=== PATIENT | male | born 1950 | race Caucasian/White ===

== ENCOUNTER → 2018-07-21 15:46 | Outpatient (CLI) | payer OTHER, MEDICARE, SELFPAY ==
[2018-07-21 17:41] LABS: Thyroid Stimulating Hormone 1.02 uIU/mL (0.47-4.68)
== END ==
PROVIDERS: Family Provider Family Medicine; PCP Family Medicine; Visit Provider Internal Medicine Cardiovascular Disease
DX: R53.83 Other fatigue (principal)
CPT/HCPCS: 36415; 84443

== ENCOUNTER 2018-09-03 12:10 | Emergency (ER) | payer OTHER, SELFPAY ==
[2018-09-03 12:16] VITALS: BP 129/75; PULSE 85; RESP 14; TEMP 36.8; O2SAT 95; BMI 30.4
--- NOTE | 2018-09-03 12:25 | DI.US.S_ITS ---
PROCEDURE: US PERIPH VENOUS LOW EXTREM LT INDICATIONS: LLE pain, atraumatic, May go to US from ED waiting TECHNIQUE: Real-time imaging, as well as color and pulse Doppler interrogation, were performed of the lower extremity deep veins from the inguinal ligament to the popliteal fossa. COMPARISON: None. FINDINGS: The deep veins are normally compressible, and free of intraluminal thrombus. Color and pulse Doppler demonstrate normal phasic intraluminal flow. There is normal augmentation response to distal compression maneuver. IMPRESSION: No visualized deep venous thrombosis. Her Dictated by: Marie Victor M.D. on 09/03/2018 at 13:39 Approved by: Marie Victor M.D. on 09/03/2018 at 13:44
--- NOTE | 2018-09-03 12:37 | ED.EXTPRO ---
HPI - Extremity Problem <GEORGIANA Marshall - Last Filed: 09/03/18 22:14> General Chief complaint: Extremity Problem,Nontraumatic Stated complaint: LEFT LEG PAIN Time Seen by Provider: 09/03/18 13:50 Source: patient Mode of arrival: ambulatory Limitations: no limitations History of Present Illness HPI Narrative: 67-year-old male with history of hypertension and coronary artery disease that is a nonsmoker here for complaint of pain into his left calf area over the past week. He denies any trauma to the area. He reports increased pain with motion which was worse this morning. He states that his pain has resolved somewhat prior to exam. He denies any shortness of breath or chest pain. No swelling or redness. He denies any other concerns or complaints at this timeframe. MD Complaint: extremity pain Related Data Home Medications Medication Instructions Recorded Confirmed aspirin 325 mg tablet 325 mg PO DAILY 07/28/18 07/28/18 atorvastatin 40 mg tablet 40 mg PO DAILY 07/28/18 07/28/18 metoprolol succinate ER 50 mg 50 mg PO each 07/28/18 07/28/18 capsule sprinkle, ext. release 24 hr Previous Rx's Medication Instructions Recorded sumatriptan succinate [Imitrex] 50 mg PO SEE INSTRUCTIONS #9 tab 11/23/17 lisinopril 20 mg tablet 20 mg PO DAILY 30 Days #30 tab 07/28/18 zolpidem 10 mg tablet 10 mg PO HS PRN #30 tab 07/29/18 Allergies Allergy/AdvReac Type Severity Reaction Status Date / Time No Known Drug Allergies Allergy Verified 09/03/18 12:18 Review of Systems <GEORGIANA Marshall - Last Filed: 09/03/18 22:14> Constitutional Denies chills, Denies fever(s), Denies lethargy and Denies weakness Eyes Denies change in vision, Denies eye discharge, Denies irritation and Denies loss of vision ENT Ears, Nose, Mouth, and Throat: Denies change in voice, Denies neck pain and Denies sore throat Cardiovascular Denies chest pain, Denies irregular heart rhythm, Denies lightheadedness, Denies palpitations, Denies dyspnea, Denies dyspnea on exertion and Denies orthopnea Respiratory Denies cough, Denies dyspnea, Denies dyspnea on exertion and Denies wheezing Gastrointestinal Gastrointestinal: Denies abdominal pain, Denies change in bowel habits, Denies diarrhea, Denies nausea and Denies vomiting Genitourinary Denies hematuria, Denies flank pain, Denies urinary incontinence and Denies urinary urgency Musculoskeletal Denies neck pain Comments: Left calf pain Integumentary/Breasts Denies pruritus, Denies erythema, Denies rash and Denies wounds Neurologic Denies confusion, Denies loss of vision and Denies weakness Psychiatric Denies anxiety, Denies confusion, Denies depression, Denies homicidal ideation and Denies suicidal ideation Endocrine Denies palpitations Hematologic/Lymphatic Denies easy bruising Allergic/Immunologic Denies wheezing Exam <GEORGIANA Marshall - Last Filed: 09/03/18 22:14> Initial Vital Signs Initial Vital Signs: Vital Signs Temperature 98.2 F 09/03/18 12:16 Pulse Rate 85 09/03/18 12:16 Respiratory Rate 14 09/03/18 12:16 Blood Pressure 129/75 09/03/18 12:16 Pulse Oximetry 95 09/03/18 12:16 Const General: cooperative and well developed Nutritional Appearance: well nourished Orientation: alert, awake, oriented x3 and not confused [facility] Mouth: oral mucosae normal and moist mucous membranes Eyes Conjunctivae: conjunctivae normal Sclera: sclerae normal Pupils: PERRL EOM: EOM intact bilaterally Resp Effort & Inspection: normal respiratory effort, able to speak in complete sentences, no respiratory distress and no use of accessory muscles Auscultation: clear to auscultation bilaterally, no rales, no rhonchi and no wheezes Cardio Rate: regular rate Rhythm: regular rhythm Heart Sounds: no click, no gallops, no murmurs and no rubs Pulses: normal peripheral pulses Skin General: no rashes or lesions noted, No jaundice and No petechiae Neuro General: alert, oriented x3, gait normal and no focal motor deficits Speech: speech normal Extrem Other: Left lower extremity with no swelling. No ecchymosis. No deformities. No erythema. Distal sensation is intact. Distal pulses are intact. Full range of motion. <Noah Early DO - Last Filed: 09/05/18 08:32> Initial Vital Signs Initial Vital Signs: Vital Signs Temperature 98.2 F 09/03/18 12:16 Pulse Rate 85 09/03/18 12:16 Respiratory Rate 14 11/10/18 12:16 Blood Pressure 129/75 09/03/18 12:16 Pulse Oximetry 95 09/03/18 12:16 Course <GEORGIANA Marshall - Last Filed: 09/03/18 22:14> Orders Ordered: ED Orders 09/03/18 12:25 US periph venous low extrem lt Stat Vital Signs - 8 hr 09/03/18 14:51 Pulse Rate 81 Respiratory Rate 18 Blood Pressure 124/83 Pulse Oximetry 95 <Noah Early DO - Last Filed: 09/05/18 08:32> Orders Ordered: ED Orders 09/03/18 12:25 US periph venous low extrem lt Stat Vital Signs - 8 hr 09/03/18 14:51 Pulse Rate 81 Respiratory Rate 18 Blood Pressure 124/83 Pulse Oximetry 95 MDM - Extremity (Nontraumatic) <GEORGIANA Marshall - Last Filed: 09/03/18 22:14> Imaging Data Venous US: Radiologist's impression: [place] [address] Ultrasound Report Signed Patient: Garrett Hassan WMR#: [id number] : 1950cct:[id number] Age/Sex: 67 / MDate of Service: 09/03/18 Loc: ED Accession Number: [id number] Procedure: US periph venous low extrem lt Ordering Provider: Noah Early D.O. PROCEDURE: US PERIPH VENOUS LOW EXTREM LT INDICATIONS: LLE pain, atraumatic, May go to US from ED waiting TECHNIQUE: Real-time imaging, as well as color and pulse Doppler interrogation, were performed of the lower extremity deep veins from the inguinal ligament to the popliteal fossa. COMPARISON: None. FINDINGS: The deep veins are normally compressible, and free of intraluminal thrombus. Color and pulse Doppler demonstrate normal phasic intraluminal flow. There is normal augmentation response to distal compression maneuver. IMPRESSION: No visualized deep venous thrombosis. Her Dictated by: Marie Victor M.D. on 09/03/2018 at 13:39 Approved by: Marie Victor M.D. on 09/03/2018 at 13:44 MDM Narrative Medical decision making narrative: Ultrasound left lower extremity was obtained was negative for any blood clot. Signs and symptoms presents as muscle strain. [id number] Tylenol or Motrin as needed for any discomfort. Rest area. Gentle range of motion and stretching. Follow up with primary care provider next week. For any worsening symptoms return to the emergency room. Discharge Plan Departure Patient Disposition: Home Clinical Impression: Left leg pain Discharge Date/Time: 09/03/18 14:51 Interventions: ED Discharge Assessment Last Done: 09/03/18 14:51 Instructions: DI for Leg Pain Activity Restrictions/Additional Instructions: Ultrasound left lower extremity was obtained was negative for any blood clot. Signs and symptoms presents as muscle strain. [id number]-whosaif Tylenol or Motrin as needed for any discomfort. Rest area. Gentle range of motion and stretching. Follow up with primary care provider next week. For any worsening symptoms return to the emergency room. Prescriptions: No Action metoprolol succinate 50 mg cap,sprinkle,ER 24hr dose pack 50 mg PO RF: 0 aspirin 325 mg tablet 325 mg PO DAILY RF: 0 atorvastatin 40 mg tablet 40 mg PO DAILY RF: 0 lisinopril 20 mg tablet 20 mg PO DAILY 30 Days Qty: 30 RF: 5 sumatriptan succinate [Imitrex] 50 MG tablet 50 mg PO SEE INSTRUCTIONS Qty: 9 RF: 3 zolpidem 10 mg tablet 10 mg PO HS PRN (Reason: insomnia) Qty: 30 RF: 5 Referrals: Enzo Lance MD [Primary Care Provider] - <Noah Early DO - Last Filed: 09/05/18 08:32> [facility] ED Attending Girma Attestation: I was immediately available in the department for consultation. Documentation has been reviewed. I agree with assessment and plan.
[2018-09-03 13:20] VITALS: PULSE 70
--- NOTE | 2018-09-03 13:52 | ED_ITS ---
HPI - Extremity Problem <GEORGIANA Marshall - Last Filed: 09/03/18 22:14> General Chief complaint: Extremity Problem,Nontraumatic Stated complaint: LEFT LEG PAIN Time Seen by Provider: 09/03/18 13:50 Source: patient Mode of arrival: ambulatory Limitations: no limitations History of Present Illness HPI Narrative: 67-year-old male with history of hypertension and coronary artery disease that is a nonsmoker here for complaint of pain into his left calf area over the past week. He denies any trauma to the area. He reports increased pain with motion which was worse this morning. He states that his pain has resolved somewhat prior to exam. He denies any shortness of breath or chest pain. No swelling or redness. He denies any other concerns or complaints at this timeframe. MD Complaint: extremity pain Related Data Home Medications Medication Instructions Recorded Confirmed aspirin 325 mg tablet 325 mg PO DAILY 07/28/18 07/28/18 atorvastatin 40 mg tablet 40 mg PO DAILY 07/28/18 07/28/18 metoprolol succinate ER 50 mg 50 mg PO each 07/28/18 07/28/18 capsule sprinkle, ext. release 24 hr Previous Rx's Medication Instructions Recorded sumatriptan succinate [Imitrex] 50 mg PO SEE INSTRUCTIONS #9 tab 11/23/17 lisinopril 20 mg tablet 20 mg PO DAILY 30 Days #30 tab 07/28/18 zolpidem 10 mg tablet 10 mg PO HS PRN #30 tab 07/29/18 Allergies Allergy/AdvReac Type Severity Reaction Status Date / Time No Known Drug Allergies Allergy Verified 09/03/18 12:18 Review of Systems <GEORGIANA Marshall - Last Filed: 09/03/18 22:14> Constitutional Denies chills, Denies fever(s), Denies lethargy and Denies weakness Eyes Denies change in vision, Denies eye discharge, Denies irritation and Denies loss of vision ENT Ears, Nose, Mouth, and Throat: Denies change in voice, Denies neck pain and Denies sore throat Cardiovascular Denies chest pain, Denies irregular heart rhythm, Denies lightheadedness, Denies palpitations, Denies dyspnea, Denies dyspnea on exertion and Denies orthopnea Respiratory Denies cough, Denies dyspnea, Denies dyspnea on exertion and Denies wheezing Gastrointestinal Gastrointestinal: Denies abdominal pain, Denies change in bowel habits, Denies diarrhea, Denies nausea and Denies vomiting Genitourinary Denies hematuria, Denies flank pain, Denies urinary incontinence and Denies urinary urgency Musculoskeletal Denies neck pain Comments: Left calf pain Integumentary/Breasts Denies pruritus, Denies erythema, Denies rash and Denies wounds Neurologic Denies confusion, Denies loss of vision and Denies weakness Psychiatric Denies anxiety, Denies confusion, Denies depression, Denies homicidal ideation and Denies suicidal ideation Endocrine Denies palpitations Hematologic/Lymphatic Denies easy bruising Allergic/Immunologic Denies wheezing Exam <GEORGIANA Marshall - Last Filed: 09/03/18 22:14> Initial Vital Signs Initial Vital Signs: Vital Signs Temperature 98.2 F 09/03/18 12:16 Pulse Rate 85 09/03/18 12:16 Respiratory Rate 14 09/03/18 12:16 Blood Pressure 129/75 09/03/18 12:16 Pulse Oximetry 95 09/03/18 12:16 Const General: cooperative and well developed Nutritional Appearance: well nourished Orientation: alert, awake, oriented x3 and not confused [facility] Mouth: oral mucosae normal and moist mucous membranes Eyes Conjunctivae: conjunctivae normal Sclera: sclerae normal Pupils: PERRL EOM: EOM intact bilaterally Resp Effort & Inspection: normal respiratory effort, able to speak in complete sentences, no respiratory distress and no use of accessory muscles Auscultation: clear to auscultation bilaterally, no rales, no rhonchi and no wheezes Cardio Rate: regular rate Rhythm: regular rhythm Heart Sounds: no click, no gallops, no murmurs and no rubs Pulses: normal peripheral pulses Skin General: no rashes or lesions noted, No jaundice and No petechiae Neuro General: alert, oriented x3, gait normal and no focal motor deficits Speech: speech normal Extrem Other: Left lower extremity with no swelling. No ecchymosis. No deformities. No erythema. Distal sensation is intact. Distal pulses are intact. Full range of motion. <Noah Early DO - Last Filed: 09/05/18 08:32> Initial Vital Signs Initial Vital Signs: Vital Signs Temperature 98.2 F 09/03/18 12:16 Pulse Rate 85 09/03/18 12:16 Respiratory Rate 14 11/10/18 12:16 Blood Pressure 129/75 09/03/18 12:16 Pulse Oximetry 95 09/03/18 12:16 Course <GEORGIANA Marshall - Last Filed: 09/03/18 22:14> Orders Ordered: ED Orders 09/03/18 12:25 US periph venous low extrem lt Stat Vital Signs - 8 hr 09/03/18 14:51 Pulse Rate 81 Respiratory Rate 18 Blood Pressure 124/83 Pulse Oximetry 95 <Noah Early DO - Last Filed: 09/05/18 08:32> Orders Ordered: ED Orders 09/03/18 12:25 US periph venous low extrem lt Stat Vital Signs - 8 hr 09/03/18 14:51 Pulse Rate 81 Respiratory Rate 18 Blood Pressure 124/83 Pulse Oximetry 95 MDM - Extremity (Nontraumatic) <GEORGIANA Marshall - Last Filed: 09/03/18 22:14> Imaging Data Venous US: Radiologist's impression: [place] [address] Ultrasound Report Signed Patient: Garrett Hassan WMR#: [id number] : 1950cct:[id number] Age/Sex: 67 / MDate of Service: 09/03/18 Loc: ED Accession Number: [id number] Procedure: US periph venous low extrem lt Ordering Provider: Noah Early D.O. PROCEDURE: US PERIPH VENOUS LOW EXTREM LT INDICATIONS: LLE pain, atraumatic, May go to US from ED waiting TECHNIQUE: Real-time imaging, as well as color and pulse Doppler interrogation, were performed of the lower extremity deep veins from the inguinal ligament to the popliteal fossa. COMPARISON: None. FINDINGS: The deep veins are normally compressible, and free of intraluminal thrombus. Color and pulse Doppler demonstrate normal phasic intraluminal flow. There is normal augmentation response to distal compression maneuver. IMPRESSION: No visualized deep venous thrombosis. Her Dictated by: Marie Victor M.D. on 09/03/2018 at 13:39 Approved by: Marie Victor M.D. on 09/03/2018 at 13:44 MDM Narrative Medical decision making narrative: Ultrasound left lower extremity was obtained was negative for any blood clot. Signs and symptoms presents as muscle strain. Dsae-[id number] Tylenol or Motrin as needed for any discomfort. Rest area. Gentle range of motion and stretching. Follow up with primary care provider next week. For any worsening symptoms return to the emergency room. Discharge Plan Departure Patient Disposition: Home Clinical Impression: Left leg pain Discharge Date/Time: 09/03/18 14:51 Interventions: ED Discharge Assessment Last Done: 09/03/18 14:51 Instructions: DI for Leg Pain Activity Restrictions/Additional Instructions: Ultrasound left lower extremity was obtained was negative for any blood clot. Signs and symptoms presents as muscle strain. Bfyd-iyy-vcozjjt Tylenol or Motrin as needed for any discomfort. Rest area. Gentle range of motion and stretching. Follow up with primary care provider next week. For any worsening symptoms return to the emergency room. Prescriptions: No Action metoprolol succinate 50 mg cap,sprinkle,ER 24hr dose pack 50 mg PO RF: 0 aspirin 325 mg tablet 325 mg PO DAILY RF: 0 atorvastatin 40 mg tablet 40 mg PO DAILY RF: 0 lisinopril 20 mg tablet 20 mg PO DAILY 30 Days Qty: 30 RF: 5 sumatriptan succinate [Imitrex] 50 MG tablet 50 mg PO SEE INSTRUCTIONS Qty: 9 RF: 3 zolpidem 10 mg tablet 10 mg PO HS PRN (Reason: insomnia) Qty: 30 RF: 5 Referrals: Enzo Lance MD [Primary Care Provider] - <Noah Early DO - Last Filed: 09/05/18 08:32> [facility] ED Attending Girma Attestation: I was immediately available in the department for consultation. Documentation has been reviewed. I agree with assessment and plan.
[2018-09-03 14:51] VITALS: BP 124/83; PULSE 81; RESP 18; O2SAT 95
== END 2018-09-03 14:51 | disposition home or self-care (01) ==
PROVIDERS: Emergency Provider Nurse Practitioner Family; Family Provider Family Medicine; PCP Student in an Organized Health Care Education/Training Program
DX: M79.605 Pain in left leg (principal)
CPT/HCPCS: 93971; 99282; 99284

== ENCOUNTER → 2019-03-14 16:15 | Outpatient (CLI) | payer OTHER, SELFPAY ==
[2019-03-14 16:40] LABS: Add Manual Diff / Slide Review NO; Basophils Absolute Auto 0 /uL (0-100); Basophils Percent Auto 0.8 % (0-2); Eosinophils Absolute Auto 300 /uL (0-450); Eosinophils Percent Auto 4.8 % (2-4); Hematocrit 45.7 % (41-53); Hemoglobin 15.4 g/dL (13.5-17.5); Lymphocytes Absolute Auto 1600 /uL (1100-4500); Lymphocytes Percent Auto 27.9 % (25-40); Mean Corpuscular HGB Conc 33.7 % (30-36); Mean Corpuscular Hemoglobin 29.8 PG (26-34); Mean Corpuscular Volume 88.5 fL (80-100); Monocytes Absolute Auto 400 /uL (0-900); Monocytes Percent Auto 7.2 % (3-14); Neutrophils Absolute Auto 3400 /uL (1500-7000); Neutrophils Percent Auto 59.3 % (50-75); Platelet Count 166 X10^3/uL (150-400); Red Blood Cell Count 5.17 X10^6/uL (4.5-5.9); Red Cell Distribution Width 14.4 % (11.6-14.8); White Blood Cell Count 5.7 X10^3/uL (4.5-11.0)
[2019-03-14 17:17] LABS: B Type Natriuretic Peptide < 100 (<100)
[2019-03-14 17:41] LABS: BUN Creatinine Ratio 16.3 (6-22); Blood Urea Nitrogen 13 mg/dL (9-20); Calcium 10.2 mg/dL (8.4-10.2); Carbon Dioxide 28 mmol/L (22-32); Chloride 103 mmol/L (98-107); Estimated Glomerular Filt Rate > 60.0 mL/min (>60); Glucose 85 mg/dL (80-110); HEMOLYSIS < 15 (0-50); Potassium 4.5 mmol/L (3.4-5.1); Sodium 140 mmol/L (137-145)
[2019-03-14 18:12] LABS: Thyroid Stimulating Hormone 0.96 uIU/mL (0.47-4.68)
== END ==
PROVIDERS: PCP Student in an Organized Health Care Education/Training Program; Visit Provider Internal Medicine Cardiovascular Disease
DX: I25.10 Atherosclerotic heart disease of native coronary artery without angina pectoris (principal); R53.83 Other fatigue; R06.09 Other forms of dyspnea
CPT/HCPCS: 36415; 80048; 83880; 84443; 85025

== ENCOUNTER → 2019-04-25 09:23 | Outpatient (CLI) | payer OTHER, MEDICARE, SELFPAY ==
[2019-04-25 10:14] LABS: Add Manual Diff / Slide Review NO; Basophils Absolute Auto 0 /uL (0-100); Basophils Percent Auto 0.6 % (0-2); Eosinophils Absolute Auto 300 /uL (0-450); Eosinophils Percent Auto 6.5 % (2-4); Hematocrit 44.6 % (41-53); Lymphocytes Absolute Auto 1400 /uL (1100-4500); Lymphocytes Percent Auto 28.2 % (25-40); Mean Corpuscular HGB Conc 33.6 % (30-36); Mean Corpuscular Hemoglobin 29.9 PG (26-34); Mean Corpuscular Volume 88.9 fL (80-100); Monocytes Absolute Auto 400 /uL (0-900); Monocytes Percent Auto 7.7 % (3-14); Neutrophils Absolute Auto 2800 /uL (1500-7000); Platelet Count 145 X10^3/uL (150-400); Red Blood Cell Count 5.02 X10^6/uL (4.5-5.9); Red Cell Distribution Width 13.9 % (11.6-14.8); White Blood Cell Count 4.9 X10^3/uL (4.5-11.0)
[2019-04-25 10:29] LABS: Blood Urea Nitrogen 14 mg/dL (9-20); Calcium 9.2 mg/dL (8.4-10.2); Carbon Dioxide 26 mmol/L (22-32); Chloride 107 mmol/L (98-107); Estimated Glomerular Filt Rate > 60.0 mL/min (>60); Glucose 105 mg/dL (80-110); HEMOLYSIS < 15 (0-50); Potassium 3.8 mmol/L (3.4-5.1); Sodium 143 mmol/L (137-145)
[2019-04-25 14:04] LABS: B Type Natriuretic Peptide < 100 (<100)
[2019-04-25 16:56] LABS: Prostate Specific Antigen Scrn 2.48 ng/mL (0.1-4.0)
== END ==
PROVIDERS: Family Provider Student in an Organized Health Care Education/Training Program; PCP Student in an Organized Health Care Education/Training Program; Visit Provider Internal Medicine Cardiovascular Disease
DX: I25.10 Atherosclerotic heart disease of native coronary artery without angina pectoris (principal); R06.09 Other forms of dyspnea; R53.83 Other fatigue; Z12.5 Encounter for screening for malignant neoplasm of prostate
CPT/HCPCS: 36415; 80048; 83880; 85025; G0103

== ENCOUNTER → 2019-05-11 09:44 | Outpatient (CLI) | payer OTHER, MEDICARE, SELFPAY ==
--- NOTE | 2019-05-11 09:47 | DI.US.S_ITS ---
PROCEDURE: US ABDOMEN LIMITED INDICATIONS: LEFT GROIN PAIN TECHNIQUE: Real-time focused scanning was performed of the inguinal region, with image documentation. COMPARISON: None. FINDINGS: No sonographic findings to suggest inguinal hernia or discrete mass lesion. No focal fluid collection IMPRESSION: Negative examination as above. No sonographic evidence of hernia Dictated by: Pedro Busch M.D. on 05/11/2019 at 16:53 Approved by: Pedro Busch M.D. on 05/11/2019 at 16:54
== END ==
PROVIDERS: Family Provider Student in an Organized Health Care Education/Training Program; PCP Student in an Organized Health Care Education/Training Program; Visit Provider Student in an Organized Health Care Education/Training Program
DX: R10.32 Left lower quadrant pain (principal)
CPT/HCPCS: 76705

== ENCOUNTER → 2019-07-21 10:51 | Outpatient (CLI) | payer OTHER, MEDICARE, SELFPAY ==
--- NOTE | 2019-07-21 11:42 | DI.CT.S_ITS ---
PROCEDURE: CT ABDOMEN PELVIS WO CON INDICATIONS: LLQ abdominal pain TECHNIQUE: After the administration of oral contrast, 5 mm thick sections acquired from the diaphragms to the symphysis. 5 mm coronal and sagittal reformats were performed. For radiation dose reduction, the following was used: automated exposure control, adjustment of mA and/or kV according to patient size. COMPARISON: None. FINDINGS: Image quality: Excellent. ABDOMEN: Lung bases: Lung bases are clear. Heart size is normal. Moderate amount atherosclerotic calcifications are seen. Solid organs: Liver is normal in size. Multiple well-circumscribed hypodense areas are seen scattered in liver parenchyma, measures up to 1.7 cm in size in superior left hepatic lobe and up to 1.5 cm in size in the inferior right hepatic lobe. These areas measures fluid density and likely represent hepatic cysts. Gallbladder contains multiple calcified stones. No gallbladder wall thickening or pericholecystic fluid.. Pancreas is normal in size. Spleen is normal in size. No adrenal nodules. Both kidneys are normal in size, without hydronephrosis or nephrolithiasis. Peritoneum and bowel: There is no bowel obstruction. No stomach or small bowel wall thickening. A segment of distal descending colon is seen within the left inguinal herniation sac with mild wall thickening and mesenteric fat stranding concerning for early incarceration. Sigmoid diverticulosis is seen, no CT evidence of acute diverticulitis. No free fluid or free air. Nodes and vessels: No retroperitoneal or mesenteric adenopathy by size criteria. Aorta and inferior vena cava are normal in size. Atherosclerotic calcifications 12 dominant one is seen. Miscellaneous: No ventral hernias. PELVIS: Genitourinary: There is mild diffuse bladder wall thickening. Enlarged prostate gland is seen with mass effect on floor of urinary bladder. Miscellaneous: No inguinal lymphadenopathy. Small to moderate-sized right inguinal hernia containing fat only. Moderate-sized left inguinal hernia containing thickened distal descending colon/proximal sigmoid colon loop. Bones: No suspicious bony lesions. No vertebral body compression fractures. IMPRESSION: 1. Moderate-sized left inguinal hernia containing a segment of distal descending colon/proximal sigmoid colon with wall thickening and mesenteric fat stranding concerning for early incarceration. No bowel obstruction. No free fluid or free air. 2. Small to moderate size right inguinal hernia containing fat only. 3. Numerous hypodensities scattered in liver parenchyma and may represent hepatic cysts. 4. No hydronephrosis. Enlarged prostate gland with mass effect on floor of urinary bladder. Mild diffuse bladder wall thickening. 5. Cholelithiasis, no CT evidence of acute cholecystitis. Dictated by: Samuel Bill M.D. on 07/21/2019 at 13:01 Approved by: Samuel Bill M.D. on 07/21/2019 at 13:07
== END ==
PROVIDERS: PCP Student in an Organized Health Care Education/Training Program; Visit Provider Student in an Organized Health Care Education/Training Program
DX: R10.32 Left lower quadrant pain (principal); K40.10 Bilateral inguinal hernia, with gangrene, not specified as recurrent; K80.20 Calculus of gallbladder without cholecystitis without obstruction; N40.0 Benign prostatic hyperplasia without lower urinary tract symptoms
CPT/HCPCS: 74176

== ENCOUNTER 2019-08-29 14:03 | Day surgery (SDC) | payer OTHER, SELFPAY ==
[2019-08-24 08:12] VITALS: BMI 27.9
[2019-08-29] VITALS (11 sets, daily range): BP systolic 112–156; BP diastolic 67–97; PULSE 60–69; RESP 11–19; TEMP 36.2–36.9; O2SAT 95–99; BMI 26.6
[2019-08-29] MEDS: LACTATED RINGERS 1,000 ML 100 ML IV (14:40)
--- NOTE | 2019-08-29 15:31 | PM.HP.1 ---
History of Present Illness History of Present Illness Date Patient Seen: 08/29/19 Time Patient Seen: 15:32 Chief complaint: [id number] LAP RU IHR W/MESH Narrative: This is a 68-year-old male with bilateral inguinal hernia symptomatic and reducible. He is here today for an elective laparoscopic repair. There been no interval changes in his health since the last H& P dated 07/27/2019. Patient History Medical History ADHD (attention deficit hyperactivity disorder) (Chronic) Basal cell carcinoma (Resolved) Chronic low back pain (Chronic) Cluster headaches (Chronic) Colon polyps (Resolved) Coronary artery disease (Chronic) Hyperlipidemia (Chronic) Hypertension (Chronic) Insomnia (Chronic) Myocardial infarction (Acute) Surgical History History of cardiac cath (Acute) History of vasectomy (1993) Hx of colonoscopy with polypectomy (Resolved 06/2014) Hx of coronary angioplasty (Resolved) Hx of heart artery stent (Resolved) Family & Social History Family History Father Diabetes mellitus Social History: household members family Tobacco & Substance use: Smoking Status Never smoker alcohol intake current alcohol intake frequency 0-2 drinks per day Substance Use Type does not use Meds Home Medications and Allergies Home Medications Medication Instructions Recorded Confirmed Type sumatriptan succinate [Imitrex] 50 mg PO SEE INSTRUCTIONS #9 tab 11/23/17 08/24/19 Rx nitroglycerin 0.4 mg sublingual 0.4 mg SL Q5-15M PRN 12/27/18 08/24/19 History tablet aspirin 81 mg tablet,delayed 81 mg PO DAILY 02/14/19 08/29/19 History release lisinopril 20 mg tablet 10 mg PO DAILY tab 02/14/19 08/29/19 History metoprolol succinate 50 mg capsule 25 mg PO BID each 02/14/19 08/29/19 History sprinkle, ext. release 24 hr atorvastatin 40 mg tablet 40 mg PO DAILY tab 03/23/19 08/29/19 History clopidogrel 75 mg tablet 75 mg PO DAILY 03/23/19 07/27/19 History zolpidem 10 mg tablet 10 mg PO HS PRN #30 tab 08/09/19 08/29/19 Rx Allergies Allergy/AdvReac Type Severity Reaction Status Date / Time No Known Drug Allergies Allergy Verified 08/29/19 14:26 Review of Systems Review of Systems ROS Unobtainable: All systems reviewed & are unremarkable except as noted in HPI and below Exam Vital Signs (past 8 hours): - 08/29/19 14:16 Temperature 98.4 F Pulse Rate 62 Respiratory Rate 16 Blood Pressure 133/81 Pulse Oximetry 96 Oxygen Delivery Method Room Air Narrative Exam Narrative: General-no acute distress, well nourished HEENT-moist mucous membranes, no scleral icterus Neck-supple, no lymphadenopathy Chest- non labored respirations, clear to auscultation bilaterally Cardiac-regular rate no peripheral edema Abdomen bilateral reducible inguinal hernia Extremities-warm, well perfused Neurological-alert and oriented, no focal deficits Assessment & Plan Assessment and plan (1) Inguinal hernia, bilateral: Current visit: No Status: Acute Assessment & Plan narrative: This is a 68-year-old male with bilateral inguinal hernia symptomatic reducible presents for elective laparoscopic repair. Please refer to the H& P dictated 07/27/2019 for further detail.
[2019-08-29] MEDS: CEFAZOLIN 2 GM/100 ML FROZ.PIGGY IV (16:01)
--- NOTE | 2019-08-29 16:34 | SUR.OPER ---
Supine on padded OR bed, head on pillow, arms padded and tucked at sides, legs uncrossed, safety belt at thigh, gel under heels
[2019-08-29] MEDS: BUPIVACAINE 0.25% (PF) VIAL 30 ML INJ (16:49)
[2019-08-29] MEDS: fentaNYL 100 MCG/2 ML INJ 50 MCG IV ×2 (17:39→17:45)
--- NOTE | 2019-08-29 17:39 | PM.OP.1 ---
Operative Date/Time/Diagnoses Date of procedure: 08/29/19 Time of procedure: 17:39 Pre-op diagnosis: bilateral inguinal hernia Post-op diagnosis: other (left inguinal hernia) Procedure & Clinicians Procedure: laparoscopic transabdominal preperitoneal repair of left inguinal hernia with mesh Same procedure as scheduled: Yes Indications: This is a 68-year-old male who presented with a symptomatic left inguinal hernia. He underwent a CT that demonstrated colon within a left inguinal defect. There was also suggestion of a right inguinal hernia as well although he was asymptomatic. Surgeon: Samy Corona Anesthesia Type: General Operative Notes Findings: Left direct and indirect inguinal hernia containing sigmoid colon. No significant right inguinal hernia was observed Estimated Blood Loss (mL): 20 Procedure in detail: The patient was brought to the operating room and placed supine on the table. Bilateral sequential compression devices were applied. General anesthesia was induced and they were intubated with an endotracheal tube. A crespo cath was placed in sterile fashion. They received 2 g ancef prior to skin incision. They were prepped and draped in sterile fashion. A time out was performed to ensure the correct patient, procedure and necessary equipment within the operating room. The skin was infiltrated with 0.25% bupivicaine. A 1 cm supra umbilical midline incision was made. The umbilical stalk was elevated the fascia sharply incised and the abdomen entered traumatically. A 10mm balloon port was placed and pneumoperitoneum was established at 15mm Hg. Insepction of the abdomen demonstrated no evidence of injury upon entry. Two 5 mm ports were then placed under direct visualization in the right and left lower quadrant lateral to the rectus muscle. A left direct and indirect hernia was observed. There was no major right inguinal hernia. The sigmoid colon was within the left direct defect. The colon was mobilized from its lateral attachments to the abdominal wall such that it could be carefully reduced from the direct defect. The left vas deferns the spermatic vessels were identified and protected. The peritoneum 4 cm superior to the deep inguinal ring between the medial umbilical ligament and the anterior superior iliac spine was incised. The peritoneal flap was retracted and the preperitoneal tissue was dissected off the flap beginning lateral to the inferior epigastric artery and towards the ASIS and to posterior limit of the psoas muscle to develop the lateral aspect of the pocket. Next the peritoneum medial to the inferior epigastric was mobilized towards the median umbilical ligament to develop the medial aspect of the pocket and the direct defect was reduced. The space of Retzius was fully dissected such that the Rajeev's ligmament and the pubic symphysis were visible. Next, the peritoneum was mobilized off the the spermatic vessels and vas deferns and fully exposed to the point where the vas deferens intersects with the medial umbilical ligament and the indirect hernia was reduced. A medium Bard 3D Max mesh was then placed into the abdomen and positioned such that the myopectineal orifice was completely covered with good overlap on all sides. The mesh was anchored to the pubic tubercle and to Rajeev?s ligament. The peritoneal flap was then repositioned back to its original position and tacks were used to anchor it in position such that no bowel could herniate into the preperitoneal space. The area was examined for hemostasis. The 5mm trocars were removed under direct visualization and pneumoperitoneum was deflated through the umbilical trocar, The fascia at the umbilicus was closed with 0-Vicryl in figure of 8 fashion, skin closed with 4-0 Monocyl followed by Dermabond. The sponge and instrument count at the end of the case was correct. Both testicles were entirely within the scrotum at the end of the case. The patient emerged from anesthsia was extubated and transferred to recovery in stable condition. Post-operative Condition: stable Disposition: same day surgery
== END 2019-08-29 19:05 | disposition home or self-care (01) ==
PROVIDERS: Family Provider Student in an Organized Health Care Education/Training Program; PCP Student in an Organized Health Care Education/Training Program; Visit Provider Surgery
PROC: 0YQ64ZZ Repair Left Inguinal Region, Percutaneous Endoscopic Approach (ICD-10-PCS; CPT 49650; principal; 2019-08-29 15:15)
DX: K40.30 Unilateral inguinal hernia, with obstruction, without gangrene, not specified as recurrent (principal); I10 Essential (primary) hypertension; I25.10 Atherosclerotic heart disease of native coronary artery without angina pectoris; E78.5 Hyperlipidemia, unspecified; I25.2 Old myocardial infarction
CPT/HCPCS: 49650; C1781; J0690; J1100; J1885; J2405; J2704; J3010

== ENCOUNTER 2019-09-19 12:39 | Observation (INO) | payer OTHER, MEDICARE, SELFPAY ==
--- NOTE | 2019-09-19 13:02 | ED.CHESTPAIN ---
HPI - Chest Pain General Chief Complaint: Chest Pain Stated Complaint: CHEST TIGHNESS Time Seen by Provider: 09/19/19 12:57 Source: patient Mode of arrival: Ambulatory Limitations: no limitations History of Present Illness HPI narrative: Patient is a 68-year-old with known coronary artery disease and 3 stents, placement of LAD stent on 03/13/2019 and stent placement to the ED EMS of mid LAD on 12/12/2018. He reports today that he generally feels weak and fatigued. He says that he had a cardiac arrest without any chest pain previously he says that he does have some chest tightness which does get worse with exertion. He overall feels extremely weak and fatigued ongoing for the last few days. He denies any fever or chills no productive cough. No radiation of pain. He had a treadmill stress test on 04/11/2019 which did not show any evidence of ischemia. Related Data Home Medications Medication Instructions Recorded Confirmed nitroglycerin 0.4 mg sublingual 0.4 mg SL Q5-15M PRN 12/27/18 09/19/19 tablet aspirin 81 mg tablet,delayed 81 mg PO DAILY 02/14/19 09/19/19 release atorvastatin 40 mg tablet 40 mg PO DAILY tab 03/23/19 09/19/19 clopidogrel 75 mg tablet 75 mg PO DAILY 03/23/19 09/19/19 lisinopril 10 mg PO DAILY 09/19/19 09/19/19 metoprolol succinate 25 mg PO BID 09/19/19 09/19/19 zolpidem 10 mg PO BEDTIME 09/19/19 09/19/19 Previous Rx's Medication Instructions Recorded sumatriptan succinate [Imitrex] 50 mg PO SEE INSTRUCTIONS #9 tab 11/23/17 acetaminophen [Tylenol] 650 mg PO QID PRN #60 cap 08/29/19 Allergies Allergy/AdvReac Type Severity Reaction Status Date / Time No Known Drug Allergies Allergy Verified 09/13/19 11:49 Review of Systems Review of Systems ROS Unobtainable: All systems reviewed & are unremarkable except as noted in HPI and below Constitutional Constitutional: Denies chills, Denies fever(s), Denies lethargy and Denies weakness Eyes Eyes: Denies change in vision, Denies eye discharge, Denies irritation and Denies loss of vision ENT Ears, Nose, Mouth, and Throat: Denies change in voice, Denies neck pain and Denies sore throat Cardiovascular Cardiovascular: Reports as per HPI Gastrointestinal Gastrointestinal: Denies abdominal pain, Denies change in bowel habits, Denies diarrhea, Denies nausea and Denies vomiting Genitourinary Genitourinary: Denies hematuria, Denies flank pain, Denies urinary incontinence and Denies urinary urgency Musculoskeletal Musculoskeletal: Denies neck pain Integumentary/Breasts Skin/Breast: Denies pruritus, Denies erythema, Denies rash and Denies wounds Neurologic Neurologic: Denies loss of vision and Denies weakness Patient History Medical History ADHD (attention deficit hyperactivity disorder) (Chronic) Basal cell carcinoma (Resolved) Chronic low back pain (Chronic) Cluster headaches (Chronic) Colon polyps (Resolved) Coronary artery disease (Chronic) Hyperlipidemia (Chronic) Hypertension (Chronic) Insomnia (Chronic) Myocardial infarction (Acute) Surgical History History of cardiac cath (Acute) History of vasectomy (1993) Hx of colonoscopy with polypectomy (Resolved 06/2014) Hx of coronary angioplasty (Resolved) Hx of heart artery stent (Resolved) Family History Father Diabetes mellitus Social History household members: family Smoking Status: Never smoker alcohol intake: current substance use type: does not use alcohol intake frequency: 0-2 drinks per day Substance Use Type: does not use Exam Initial Vital Signs Initial Vital Signs: Vital Signs Temperature 97.6 F 09/19/19 13:08 Pulse Rate 65 09/19/19 13:08 Respiratory Rate 9 L 09/19/19 13:08 Blood Pressure 112/72 09/19/19 13:08 Pulse Oximetry 98 09/19/19 13:08 GENERAL: Well-appearing, well-nourished and in no acute distress. HEENT: Head atraumatic,EOMI, pupils reactive, face symmetric, moist mucous membranes CARDIOVASCULAR: Regular rate and rhythm without murmurs, rubs or gallops. RESPIRATORY: Breath sounds equal bilaterally, no wheezes rales or rhonchi. ABDOMEN: Soft, nontender. Normoactive bowel sounds all 4 quadrants. No guarding or rebound. EXTREMITIES: Normal range of motion, no clubbing or edema. Neurovascularly intact NEUROLOGICAL: Alert and oriented x4.Normal gait and speech. Cranial nerves II through XII grossly intact. SKIN: Warm, dry, no laceration, no petechiae, no rashes or lesions. Course Orders Ordered: ED Orders 09/19/19 13:07 XR chest 1V Stat EKG-12 Lead Stat 09/19/19 13:10 B Type Natriuretic Peptide Stat Complete Blood Count AUTO DIFF Stat Comprehensive Metabolic Panel Stat Lipase Stat Partial Thromboplastin Time Stat Prothrombin Time INR Stat Troponin & CK Cardiac Panel Stat 09/19/19 13:42 EKG-12 Lead Stat 09/19/19 15:09 Troponin I Stat Sodium Chloride (Normal Saline 0.9%) 1,000 mls @ 150 mls/hr IV CONT KEYSHA Last Infusion: 09/19/19 17:30 Dose: 150 mls/hr Documented by: Admin: 09/19/19 14:07 Dose: 150 mls/hr Documented by: TAMI Consultations Consultation #1: Dr. Cerna, cardiology updated patient's symptoms test results including being off Plavix for recent surgery. Recommends repeat troponin if repeat troponin is negative he can stay here and have stress test if positive then needs transferring. Time: 14:01 Consultation #2: Dr. Chang, hospitalist updated patient's symptoms test results agrees with observation Time: 17:09 Vital Signs Vital signs: Vital Signs - 8 hr 09/19/19 13:08 Temperature 97.6 F Pulse Rate 65 Respiratory Rate 9 L Blood Pressure 112/72 Pulse Oximetry 98 MDM - Chest Pain Lab Data Attestation: I reviewed the patient's lab results. Result diagrams: 09/19/19 13:10 09/19/19 13:10 Labs: Lab Results 09/19/19 09/19/19 09/19/19 Range/Units 13:10 13:10 13:10 WBC 5.0 (4.5-11.0) X10^3/uL RBC 5.30 (4.5-5.9) X10^6/uL Hgb 16.1 (13.5-17.5) g/dL Hct 47.1 (41-53) % MCV 88.9 (80-100) fL MCH 30.4 (26-34) PG MCHC 34.1 (30-36) % RDW 13.4 (11.6-14.8) % Plt Count 177 (150-400) X10^3/uL Neut % (Auto) 71.1 (50-75) % Lymph % (Auto) 19.2 L (25-40) % [place] % (Auto) 6.3 (3-14) % Eos % (Auto) 2.7 (2-4) % Baso % (Auto) 0.7 (0-2) % Neut # (Auto) 3600 (4648-7172) /uL Lymph # (Auto) 1000 L (4873-8001) /uL [place] # (Auto) 300 (0-900) /uL Eos # (Auto) 100 (0-450) /uL Baso # (Auto) 0 (0-100) /uL PT 12.1 (10.1-12.7) SECONDS INR 1.1 (0.9-1.3) APTT 34 (26.4-36.2) SECONDS Sodium 140 (137-145) mmol/L Potassium 4.1 (3.4-5.1) mmol/L Chloride 105 (98-107) mmol/L Carbon Dioxide 27 (22-32) mmol/L BUN 16 (9-20) mg/dL Creatinine 0.80 (0.66-1.25) mg/dL Estimated GFR > 60.0 (>60) mL/min BUN/Creatinine Ratio 20.0 (6-22) Glucose 92 (80-110) mg/dL Calcium 9.5 (8.4-10.2) mg/dL Total Bilirubin 0.9 (0.2-1.3) mg/dL AST 38 (17-59) IU/L ALT 39 (<50) IU/L Alkaline Phosphatase 53 (38-126) U/L Total Creatine Kinase 63 (55-170) U/L CK-MB (CK-2) TNP CK-MB (CK-2) Rel Index TNP Troponin I < 0.012 (0.01-0.034) ng/mL B-Natriuretic Peptide < 100 (<100) Total Protein 7.5 (6.3-8.2) g/dL Albumin 4.4 (3.5-5.0) g/dL Globulin 3.1 (1.7-4.1) g/dL Albumin/Globulin Ratio 1.4 (1.0-2.8) Lipase 99 (23-300) U/L 09/19/19 Range/Units 15:09 WBC (4.5-11.0) X10^3/uL RBC (4.5-5.9) X10^6/uL Hgb (13.5-17.5) g/dL Hct (41-53) % MCV (80-100) fL MCH (26-34) PG MCHC (30-36) % RDW (11.6-14.8) % Plt Count (150-400) X10^3/uL Neut % (Auto) (50-75) % Lymph % (Auto) (25-40) % [place] % (Auto) (3-14) % Eos % (Auto) (2-4) % Baso % (Auto) (0-2) % Neut # (Auto) (6404-4996) /uL Lymph # (Auto) (9118-9294) /uL [place] # (Auto) (0-900) /uL Eos # (Auto) (0-450) /uL Baso # (Auto) (0-100) /uL PT (10.1-12.7) SECONDS INR (0.9-1.3) APTT (26.4-36.2) SECONDS Sodium (137-145) mmol/L Potassium (3.4-5.1) mmol/L Chloride (98-107) mmol/L Carbon Dioxide (22-32) mmol/L BUN (9-20) mg/dL Creatinine (0.66-1.25) mg/dL Estimated GFR (>60) mL/min BUN/Creatinine Ratio (6-22) Glucose (80-110) mg/dL Calcium (8.4-10.2) mg/dL Total Bilirubin (0.2-1.3) mg/dL AST (17-59) IU/L ALT (<50) IU/L Alkaline Phosphatase (38-126) U/L Total Creatine Kinase (55-170) U/L CK-MB (CK-2) CK-MB (CK-2) Rel Index Troponin I < 0.012 (0.01-0.034) ng/mL B-Natriuretic Peptide (<100) Total Protein (6.3-8.2) g/dL Albumin (3.5-5.0) g/dL Globulin (1.7-4.1) g/dL Albumin/Globulin Ratio (1.0-2.8) Lipase (23-300) U/L ECG Data Attestation: I personally reviewed and interpreted this ECG as follows: Prior ECG tracings: available for review Interpretation: Normal sinus rhythm rate 64 p.r. interval 164 QRS [address] elevations or depressions Q-wave noted in lead 3 actually looks improved from EKG in 2010 MDM Narrative Medical decision making narrative: Patient's chest pain has subsided since being in the ED. He is ambulatory to the restroom without any difficulty. He will be admitted for chest pain observation. Discharge Plan Departure Patient Disposition: Admitted as Observation Clinical Impression: Chest pain Qualifiers: Chest pain type: unspecified Qualified Code(s): R07.9 - Chest pain, unspecified Discharge Date/Time: 09/19/19 17:44 Admit Date/Time: 09/19/19 17:02 Admit Provider: Adalberto Chang
--- NOTE | 2019-09-19 13:07 | DI.RAD.S_ITS ---
PROCEDURE: XR CHEST 1V INDICATIONS: chest pain TECHNIQUE: One view of the chest was acquired. COMPARISON: [facility], CR, XR CHEST 1 VIEW, 12/12/2018, 18:17. FINDINGS: Surgical changes and devices: None. Lungs and pleura: Interstitial prominence within the perihilar regions is present. There is no focal consolidation, effusion, or definite pneumothorax. Mediastinum: Mediastinal contours appear normal. Heart size is normal. Bones and chest wall: No suspicious bony lesions. Overlying soft tissues appear unremarkable. IMPRESSION: Possible mild vascular congestion. No definite pneumonia. Dictated by: Hugo Rodriguez M.D. on 09/19/2019 at 12:47 Approved by: Hugo Rodriguez M.D. on 09/19/2019 at 12:47
[2019-09-19 13:08] VITALS: BP 112/72; PULSE 65; RESP 9; TEMP 36.4; O2SAT 98
[2019-09-19 13:23] LABS: Add Manual Diff / Slide Review NO; Basophils Absolute Auto 0 /uL (0-100); Basophils Percent Auto 0.7 % (0-2); Eosinophils Absolute Auto 100 /uL (0-450); Eosinophils Percent Auto 2.7 % (2-4); Hematocrit 47.1 % (41-53); Hemoglobin 16.1 g/dL (13.5-17.5); Lymphocytes Absolute Auto 1000 /uL (1100-4500); Lymphocytes Percent Auto 19.2 % (25-40); Mean Corpuscular HGB Conc 34.1 % (30-36); Mean Corpuscular Hemoglobin 30.4 PG (26-34); Mean Corpuscular Volume 88.9 fL (80-100); Monocytes Absolute Auto 300 /uL (0-900); Monocytes Percent Auto 6.3 % (3-14); Neutrophils Absolute Auto 3600 /uL (1500-7000); Neutrophils Percent Auto 71.1 % (50-75); Platelet Count 177 X10^3/uL (150-400); Red Cell Distribution Width 13.4 % (11.6-14.8)
--- NOTE | 2019-09-19 13:25 | PC.NURSE ---
Patient has been off plavix for one month secondary to hernia repair. Started back on plavix yesterday due to not feeling well.
[2019-09-19 13:28] LABS: INR 1.1 (0.9-1.3); Prothrombin Time 12.1 SECONDS (10.1-12.7)
[2019-09-19 13:30] LABS: PTT Partial Thromboplastin Tim 34 SECONDS (26.4-36.2)
[2019-09-19 13:36] LABS: Alanine Aminotransferase 39 IU/L (<50); Albumin 4.4 g/dL (3.5-5.0); Albumin Globulin Ratio 1.4 (1.0-2.8); Alkaline Phosphatase 53 U/L (38-126); Aspartate Aminotransferase 38 IU/L (17-59); Bilirubin Total 0.9 mg/dL (0.2-1.3); Blood Urea Nitrogen 16 mg/dL (9-20); Calcium 9.5 mg/dL (8.4-10.2); Carbon Dioxide 27 mmol/L (22-32); Chloride 105 mmol/L (98-107); Creatine Kinase 63 U/L (55-170); Estimated Glomerular Filt Rate > 60.0 mL/min (>60); Globulin 3.1 g/dL (1.7-4.1); Glucose 92 mg/dL (80-110); Lipase 99 U/L (23-300); Sodium 140 mmol/L (137-145); Total Protein 7.5 g/dL (6.3-8.2)
[2019-09-19 13:40] LABS: HEMOLYSIS 54 (0-50); Potassium 4.1 mmol/L (3.4-5.1)
[2019-09-19 13:48] LABS: Troponin I < 0.012 ng/mL (0.01-0.034)
[2019-09-19 14:02] LABS: B Type Natriuretic Peptide < 100 (<100)
[2019-09-19] MEDS: SODIUM CHLORIDE 0.9% 1,000 ML 150 ML IV (14:07)
[2019-09-19 15:46] LABS: Troponin I < 0.012 ng/mL (0.01-0.034)
--- NOTE | 2019-09-19 17:22 | PM.HP.1 ---
History of Present Illness History of Present Illness Date Patient Seen: 09/19/19 Time Patient Seen: 17:22 Chief complaint: CHEST TIGHNESS Narrative: Mr. Vergara is a 68-year-old male with past medical history hypertension, hyperlipidemia, and CAD (s/p stenting in 2016, and again in 11/2018) presented with left-sided chest pressure starting this morning. Patient states his chest pressure/tightness was mild in that it was not as severe as his prior heart attack but was a very similar feeling. There was no radiation into his arm and he denied any diaphoresis or arm tingling. He states he felt uneasy while the symptoms were occurring, but no overt nausea or emesis. The symptoms lasted for about an hour and 15 minutes before resolving. He had associated shortness of breath with the symptoms which then resolved. He could also feel his heart pounding, but it was regular and not very fast. He has been having off and on pressures which are in various locations that last for few minutes and then go away. Over the last couple of days he has also felt extremely fatigued compared to baseline. He recently had a laparoscopic hernia repair on August 29. 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 He denies any fevers, chills, vision changes, nasal congestion, sore throat. He does endorse a mild nonproductive cough. He denied any abdominal pain, constipation, groin pain. He does endorse mild dysuria which has improved since his hernia repair. He denies orthopnea or lower extremity edema. In the ED, patient was mildly hypertensive but otherwise vitals were unremarkable. Laboratory evaluation was also unremarkable including negative troponin x2, BNP of less than 100, and no leukocytosis. EKG showing sinus rhythm with a rate in the 60s and no evidence of ischemia, repeat an hour later was unremarkable as well. Chest x-ray with bilateral hazy opacities slightly increased from previous exam in November. Emergency provider contacted Cardiology at [facility] who recommended continue troponins and if negative stress testing. Patient was admitted to Medicine under observation status. Patient History Medical History ADHD (attention deficit hyperactivity disorder) (Chronic) Basal cell carcinoma (Resolved) Chronic low back pain (Chronic) Cluster headaches (Chronic) Colon polyps (Resolved) Coronary artery disease (Chronic) Hyperlipidemia (Chronic) Hypertension (Chronic) Insomnia (Chronic) Myocardial infarction (Acute) Surgical History History of cardiac cath (Acute) History of vasectomy (1993) Hx of colonoscopy with polypectomy (Resolved 06/2014) Hx of coronary angioplasty (Resolved) Hx of heart artery stent (Resolved) Family & Social History Family History Father Diabetes mellitus Social History: household members family Safety & Behavioral: Feels Safe in Current Yes Environment Tobacco & Substance use: Smoking Status Never smoker alcohol intake current alcohol intake frequency 0-2 drinks per day Substance Use Type does not use Meds Home Medications and Allergies Home Medications Medication Instructions Recorded Confirmed Type sumatriptan succinate [Imitrex] 50 mg PO SEE INSTRUCTIONS #9 tab 11/23/17 09/19/19 Rx nitroglycerin 0.4 mg sublingual 0.4 mg SL Q5-15M PRN 12/27/18 09/19/19 History tablet aspirin 81 mg tablet,delayed 81 mg PO DAILY 02/14/19 09/19/19 History release atorvastatin 40 mg tablet 40 mg PO DAILY tab 03/23/19 09/19/19 History clopidogrel 75 mg tablet 75 mg PO DAILY 03/23/19 09/19/19 History acetaminophen [Tylenol] 650 mg PO QID PRN #60 cap 08/29/19 09/19/19 Rx lisinopril 10 mg PO DAILY 09/19/19 09/19/19 History metoprolol succinate 25 mg PO BID 09/19/19 09/19/19 History zolpidem 10 mg PO BEDTIME 09/19/19 09/19/19 History Allergies Allergy/AdvReac Type Severity Reaction Status Date / Time No Known Drug Allergies Allergy Verified 09/13/19 11:49 Review of Systems Review of Systems Narrative: All other systems reviewed with the patient and are negative unless otherwise stated. Exam Vital Signs (past 8 hours): - 09/19/19 13:08 Temperature 97.6 F Pulse Rate 65 Respiratory Rate 9 L Blood Pressure 112/72 Pulse Oximetry 98 Oxygen Delivery Method Room Air Narrative Exam Narrative: GENERAL APPEARANCE: Well developed, well nourished, in no acute distress. SKIN: Inspection of the skin reveals no rashes, ulcerations or petechiae. HEENT: The sclerae were anicteric and conjunctivae were pink and moist. Extraocular movements were intact and pupils were equal, round with normal accommodation. External inspection of the ears and nose showed no scars, lesions, or masses. Lips, teeth, and gums showed normal mucosa. The oral mucosa, hard and soft palate, tongue and posterior pharynx were unremarkable. NECK: Supple and symmetric. There was no thyroid enlargement, and no tenderness, or masses were felt. CHEST: Normal AP diameter and normal contour without any kyphoscoliosis. LUNGS: Auscultation of the lungs revealed no wheezes, rhonchi, or rales. CARDIOVASCULAR: There was a regular rate and rhythm without any murmurs, gallops, rubs. Peripheral pulses were 2+ and symmetric. ABDOMEN: Soft and nontender with normal bowel sounds. No ascites was noted. Surgical port sites well-healed and incisions are clear dry and intact. MUSCULOSKELETAL: There was no tenderness or effusions noted. Muscle strength and tone were normal. EXTREMITIES: No cyanosis, clubbing or edema. NEUROLOGIC: Alert and oriented x 3. Normal affect. Strength is +5/5 in the Upper Extremities and Lower Extremities Bilaterally. Sensation to touch was normal. Objective ECG Impression: Normal sinus rhythm. No ST or T-wave abnormalities indicative ischemia. Imaging Chest x-ray: My impression: Bilateral hazy opacities increased from previous exam in November 2018, which may be consistent with vascular congestion. Labs Result Diagrams: 09/19/19 13:10 09/19/19 13:10 Labs: Laboratory Results - last 24 hr 09/19/19 09/19/19 09/19/19 13:10 13:10 13:10 WBC 5.0 RBC 5.30 Hgb 16.1 Hct 47.1 MCV 88.9 MCH 30.4 MCHC 34.1 RDW 13.4 Plt Count 177 Neut % (Auto) 71.1 Lymph % (Auto) 19.2 L [place] % (Auto) 6.3 Eos % (Auto) 2.7 Baso % (Auto) 0.7 Neut # (Auto) 3600 Lymph # (Auto) 1000 L [place] # (Auto) 300 Eos # (Auto) 100 Baso # (Auto) 0 PT 12.1 INR 1.1 APTT 34 Sodium 140 Potassium 4.1 Chloride 105 Carbon Dioxide 27 BUN 16 Creatinine 0.80 Estimated GFR > 60.0 BUN/Creatinine Ratio 20.0 Glucose 92 Calcium 9.5 Total Bilirubin 0.9 AST 38 ALT 39 Alkaline Phosphatase 53 Total Creatine Kinase 63 CK-MB (CK-2) TNP CK-MB (CK-2) Rel Index TNP Troponin I < 0.012 B-Natriuretic Peptide < 100 Total Protein 7.5 Albumin 4.4 Globulin 3.1 Albumin/Globulin Ratio 1.4 Lipase 99 09/19/19 15:09 WBC RBC Hgb Hct MCV MCH MCHC RDW Plt Count Neut % (Auto) Lymph % (Auto) [place] % (Auto) Eos % (Auto) Baso % (Auto) Neut # (Auto) Lymph # (Auto) [place] # (Auto) Eos # (Auto) Baso # (Auto) PT INR APTT Sodium Potassium Chloride Carbon Dioxide BUN Creatinine Estimated GFR BUN/Creatinine Ratio Glucose Calcium Total Bilirubin AST ALT Alkaline Phosphatase Total Creatine Kinase CK-MB (CK-2) CK-MB (CK-2) Rel Index Troponin I < 0.012 B-Natriuretic Peptide Total Protein Albumin Globulin Albumin/Globulin Ratio Lipase Assessment & Plan Assessment & Plan narrative: Garrett Hassan is a 68-year-old male with past medical history of hypertension, hyperlipidemia, and CAD (s/p stent placement in 2016 and most recently in November of 2018) who was admitted to Medicine under observation status for chest pain, pending a stress test tomorrow. 1. Chest pain, acute, resolved-concerning for anginal symptoms in this patient with recent stent placement in November as well as recent stoppage of Plavix for an inguinal hernia repair. His initial troponins are negative, but these will need to be repeated to rule out ACS. His EKG is also reassuring. Cardiology did recommend a stress test if troponins are continuing to be negative. Will attempt to obtain stress testing tomorrow. His chest x-ray did show bilateral hazy opacities which appear to be new and he does report some new fatigue. He had a recent echocardiogram 5 months ago which showed a normal EF of 55%. His BNP was less than 100. - NPO @ [facility] for stress testing - repeat troponin at 8 hours -will obtain limited TTE given fatigue and bilateral hazy opacities to assess if any new decrease in ejection fraction or wall motion abnormalities given chest pain. -continue aspirin and Plavix -hold beta-kandy prior to stress testing -reconsult Cardiology if troponins are positive 2. Coronary artery disease, chronic, present on admission- patient with coronary stenting in 2016 and most recently November of 2018. There is note of possible stent placement in February of this year in his Cardiology note, but the patient is extremely adamant that his most recent stent placement was in November and there is no coronary imaging in February of this year which fits with his story. -continue aspirin 81 mg daily, and Plavix 75 mg daily. Per patient he is to continue Plavix for approximately 1 year after his most recent stent in November. 3. Dysuria, present on admission -likely secondary to [place]z catheter placement as his symptoms are improving, but will check a UA to ensure no active infection leading to above fatigue. 4. Hypertension, chronic, stable -hold metoprolol 25 mg p.o. b.i.d. prior to stress testing -continue lisinopril 10 mg daily 5. Hyperlipidemia, chronic, stable -continue home Lipitor 40 mg Dispo: Admit under observation status, pending stress testing in the morning. If troponins are negative and we are unable to do stress testing tomorrow, patient will be discharged home with outpatient follow up. Code: Full DVT: patient ambulatory and short stay. He is on aspirin and plavix. Will hold on chemical prophylaxis at this time pending stress testing. Patient states surrogate decision maker is his brother.
[2019-09-19 17:40] VITALS: BP 139/58; PULSE 60; RESP 18; TEMP 36.2; O2SAT 96
[2019-09-19 17:49] VITALS: BMI 26.5
--- NOTE | 2019-09-19 18:44 | DI.ECHO.S_ITS ---
[facility]---------+ [facility] +---------+ : : [address] : [address] : : : : [id number] : : : : Phone: [phone]+ Echocardiogram Report + + :Name: ARMANDO PARISH Study Date: 09/20/2019 Height: 70 in : :[facility] Weight: 185 lb : : Gender: Male BSA: 2.0 m2 : :: 1950 Age: 69 yrs BP: 134/78 mmHg: :Reason For Study: CHEST PAIN : : Performed By: [facility] Staff : :Referring: ELICIA STEPHENS : + + Interpretation Summary Limited Echo to assess LV function. 1) Mildly increased left ventricular thickness (concentric) with normal size, wall motion, and normal systolic function (EF 65-70%). 2) No pericardial effusion is present. 3) No prior Echo available for comparison. Procedure: A two-dimensional transthoracic echocardiogram with color flow and Doppler was performed in limited views only. Limited echo performed for wall motion and ejection fraction. There is no prior echocardiogram noted for this patient. The patient was in normal sinus rhythm during the exam. Left Ventricle: The left ventricle is normal in size. There is mild concentric left ventricular hypertrophy. Left ventricular systolic function is normal. The ejection fraction is estimated to be 65-70%. Left ventricular wall motion is normal. Pericardium/ Pleura There is no pericardial effusion. There is no pleural effusion. MMode/2D Measurements & Calculations LVIDd: 3.8 cm LVIDs: 2.7 cm FS: 28.1 % IVSd: 1.4 cm LVPWd: 1.3 cm LV boles. diameter/BSA (cm/m^2): 1.9 LV sys. diameter/BSA (cm/m^2): 1.3 Reading Physician:12:33 PM
[2019-09-19 19:28] LABS: Bacteria Urine None Seen; RBC Urine None Seen (0-5/HPF)
[2019-09-19 19:29] LABS: Appearance Urine UA CLEAR; Bilirubin Urine UA NEGATIVE (NEGATIVE); Color Urine UA YELLOW; Glucose Urine UA NEGATIVE (Negative); Ketones Urine UA TRACE (NEGATIVE); Leukocyte Esterase Urine UA NEGATIVE (NEGATIVE); Nitrite Urine UA NEGATIVE (Negative); Occult Blood Urine UA NEGATIVE (Negative); Protein Urine UA NEGATIVE (Negative); Urobilinogen Urine UA 0.2 E.U./dL (0.2); pH Urine UA 7.5 (4.5-8.0)
[2019-09-19 19:35] LABS: Culture Indicated Urine Cult Not Indicated; Squamous Epithelial Cell Urine 0-1 /HPF (0-5/HPF); WBC Urine 0-1/HPF (0-5/HPF)
[2019-09-19 20:00] VITALS: BP 110/60; PULSE 62; RESP 18; TEMP 37.5; O2SAT 96
[2019-09-19 21:27] LABS: Troponin I < 0.012 ng/mL (0.01-0.034)
[2019-09-19] MEDS: ATORVASTATIN 20 MG TABLET 40 MG PO (21:53)
[2019-09-19 23:00] VITALS: BP 114/59; PULSE 59; RESP 16; TEMP 37; O2SAT 95
[2019-09-20 05:37] VITALS: BP 120/71; RESP 16; TEMP 36.7; O2SAT 95
[2019-09-20 05:39] VITALS: BP 120/71; PULSE 62; RESP 16; TEMP 36.7; O2SAT 95
[2019-09-20 05:50] LABS: Add Manual Diff / Slide Review NO; Basophils Absolute Auto 0 /uL (0-100); Basophils Percent Auto 0.7 % (0-2); Eosinophils Absolute Auto 200 /uL (0-450); Eosinophils Percent Auto 3.5 % (2-4); Hematocrit 43.6 % (41-53); Hemoglobin 14.6 g/dL (13.5-17.5); Lymphocytes Absolute Auto 2000 /uL (1100-4500); Lymphocytes Percent Auto 33.1 % (25-40); Mean Corpuscular HGB Conc 33.5 % (30-36); Mean Corpuscular Hemoglobin 30.2 PG (26-34); Mean Corpuscular Volume 90.1 fL (80-100); Monocytes Absolute Auto 500 /uL (0-900); Monocytes Percent Auto 7.3 % (3-14); Neutrophils Absolute Auto 3400 /uL (1500-7000); Neutrophils Percent Auto 55.4 % (50-75); Platelet Count 158 X10^3/uL (150-400); Red Blood Cell Count 4.84 X10^6/uL (4.5-5.9); Red Cell Distribution Width 13.4 % (11.6-14.8); White Blood Cell Count 6.1 X10^3/uL (4.5-11.0)
[2019-09-20 05:57] LABS: BUN Creatinine Ratio 21.1 (6-22); Blood Urea Nitrogen 19 mg/dL (9-20); Calcium 9.2 mg/dL (8.4-10.2); Carbon Dioxide 27 mmol/L (22-32); Chloride 105 mmol/L (98-107); Estimated Glomerular Filt Rate > 60.0 mL/min (>60); Glucose 86 mg/dL (80-110); HEMOLYSIS < 15 (0-50); Magnesium 2.3 mg/dL (1.6-2.3); Potassium 4.2 mmol/L (3.4-5.1); Sodium 138 mmol/L (137-145)
[2019-09-20 06:34] LABS: TSH w/ Reflex to FT4 1.22 uIU/mL (0.47-4.68)
[2019-09-20 07:40] VITALS: BP 134/78; PULSE 61; RESP 16; TEMP 36.8; O2SAT 97
--- NOTE | 2019-09-20 08:41 | CM.DANOTE ---
DCP: Case received, EMR reviewed and met with patient. Introduced self and role. Was able to obtain baseline health and activity information from patient. DCP assessment completed with information currently available. Patient is a 68 year old male who admitted yesterday afternoon to the care of the hospitalist team. PCP: Dr. Lance. Payer: confirmed: [facility]. Patient came to the hospital secondary to chest pressure. Patient has history of coronary artery disease, and has had [address] Cerna, from cardiology is consulting. Patient is having a stress test today. Patient is alert and oriented. 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 Patient lives alone, but his brother, Mikael lives next door. He also has a son named Kei. P: DCP to continue to follow. Patient should be able to go home when he is medically stable. He is to be having a stress test today. Jennifer iPtts RN/Hand Plug Shaper
[2019-09-20] MEDS: ASPIRIN EC 81 MG TABLET PO (09:11)
[2019-09-20] MEDS: LISINOPRIL 10 MG TABLET PO (09:12)
[2019-09-20] MEDS: CLOPIDOGREL 75 MG TABLET PO (09:12)
[2019-09-20] MEDS: SODIUM CHLORIDE 0.9% FLUSH 10 ML IV (09:12)
[2019-09-20 11:28] VITALS: BP 125/72; PULSE 62; RESP 16; TEMP 36.9; O2SAT 96
[2019-09-20 15:25] VITALS: BP 111/68; PULSE 87; RESP 18; TEMP 37.1; O2SAT 94
[2019-09-20] MEDS: INFLUENZA HD VACCINE 0.5 ML SYRINGE IM (17:02)
--- NOTE | 2019-09-20 17:10 | PM.DS.1 ---
History of Present Illness History of Present Illness Chief complaint: CHEST TIGHNESS Narrative: Mr. Vergara is a 68-year-old male with past medical history hypertension, hyperlipidemia, and CAD (s/p stenting in 2016, and again in 11/2018) presented with left-sided chest pressure starting this morning. Patient states his chest pressure/tightness was mild in that it was not as severe as his prior heart attack but was a very similar feeling. There was no radiation into his arm and he denied any diaphoresis or arm tingling. He states he felt uneasy while the symptoms were occurring, but no overt nausea or emesis. The symptoms lasted for about an hour and 15 minutes before resolving. He had associated shortness of breath with the symptoms which then resolved. He could also feel his heart pounding, but it was regular and not very fast. He has been having off and on pressures which are in various locations that last for few minutes and then go away. Over the last couple of days he has also felt extremely fatigued compared to baseline. He recently had a laparoscopic hernia repair on August 29. 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 He denies any fevers, chills, vision changes, nasal congestion, sore throat. He does endorse a mild nonproductive cough. He denied any abdominal pain, constipation, groin pain. He does endorse mild dysuria which has improved since his hernia repair. He denies orthopnea or lower extremity edema. In the ED, patient was mildly hypertensive but otherwise vitals were unremarkable. Laboratory evaluation was also unremarkable including negative troponin x2, BNP of less than 100, and no leukocytosis. EKG showing sinus rhythm with a rate in the 60s and no evidence of ischemia, repeat an hour later was unremarkable as well. Chest x-ray with bilateral hazy opacities slightly increased from previous exam in November. Emergency provider contacted Cardiology at [facility] who recommended continue troponins and if negative stress testing. Patient was admitted to Medicine under observation status. Discharge Providers Provider Date of admission: 09/19/19 17:02 Discharge Date: 09/20/19 Primary care physician: Enzo Lance MD Discharge provider: Adalberto Chang DO Summary Hospital Course Discharge Diagnosis: 1. Chest pain, acute, resolved- 2. Coronary artery disease, chronic, present on admission- 3. Dysuria, present on admission, improved 4. Hypertension, chronic, stable 5. Hyperlipidemia, chronic, stable Hospital Course: Garrett Hassan is a 68-year-old male with past medical history of hypertension, hyperlipidemia, and CAD (s/p stent placement in 2016 and most recently in November of 2018) who was admitted to Medicine under observation status for chest pain. He underwent a limited echocardiogram which showed normal ejection fraction and no wall motion abnormalities. His nuclear stress test was low risk and he does not need further resting edges. He is discharged home with no medication changes, he can follow up with his primary care provider and endless track vehicle supervisor as previously scheduled. 1. Chest pain, acute, resolved-concerning for anginal symptoms in this patient with recent stent placement in November as well as recent stoppage of Plavix for an inguinal hernia repair. His troponins continued to be negative. His EKG is also reassuring. Cardiology recommended a stress test which was low risk. His chest x-ray did show bilateral hazy opacities which appear to be new and he does report some new fatigue. He had a recent echocardiogram 5 months ago which showed a normal EF of 55%. His BNP was less than 100. Repeat echocardiogram showed again a normal ejection fraction and no wall motion abnormalities. 2. Coronary artery disease, chronic, present on admission- patient with coronary stenting in 2016 and most recently November of 2018. There is note of possible stent placement in February of this year in his Cardiology note, but the patient is extremely adamant that his most recent stent placement was in November and there is no coronary imaging in February of this year which fits with his story. -continue aspirin 81 mg daily, and Plavix 75 mg daily. Per patient he is to continue Plavix for approximately 1 year after his most recent stent in November. Continue home Lipitor 40 mg, and metoprolol 25 mg b.i.d.. 3. Dysuria, present on admission -likely secondary to Mont[place]z catheter placement as his symptoms are improving. UA was negative for infection. 4. Hypertension, chronic, stable -continue home metoprolol 25 mg p.o. b.i.d. -continue lisinopril 10 mg daily 5. Hyperlipidemia, chronic, stable -continue home Lipitor 40 mg Exam Vital Signs (past 8 hours): - 09/20/19 11:28 09/20/19 15:25 Temperature 98.4 F 98.8 F Pulse Rate 62 87 Respiratory Rate 16 18 Blood Pressure 125/72 111/68 Pulse Oximetry 96 94 Oxygen Delivery Method Room Air Oxygen Flow Rate 0 Narrative Exam Narrative: GENERAL APPEARANCE: Well developed, well nourished, in no acute distress. SKIN: Inspection of the skin reveals no rashes, ulcerations or petechiae. HEENT: The sclerae were anicteric and conjunctivae were pink and moist. Extraocular movements were intact and pupils were equal, round with normal accommodation. External inspection of the ears and nose showed no scars, lesions, or masses. Lips, teeth, and gums showed normal mucosa. The oral mucosa, hard and soft palate, tongue and posterior pharynx were unremarkable. NECK: Supple and symmetric. There was no thyroid enlargement, and no tenderness, or masses were felt. CHEST: Normal AP diameter and normal contour without any kyphoscoliosis. LUNGS: Auscultation of the lungs revealed no wheezes, rhonchi, or rales. CARDIOVASCULAR: There was a regular rate and rhythm without any murmurs, gallops, rubs. Peripheral pulses were 2+ and symmetric. ABDOMEN: Soft and nontender with normal bowel sounds. No ascites was noted. MUSCULOSKELETAL: There was no tenderness or effusions noted. Muscle strength and tone were normal. EXTREMITIES: No cyanosis, clubbing or edema. NEUROLOGIC: Alert and oriented x 3. Normal affect. Gait was normal. Strength is +5/5 in the Upper Extremities and Lower Extremities Bilaterally. Sensation to touch was normal. Objective Labs Result Diagrams: 09/20/19 05:25 09/20/19 05:25 Labs: Laboratory Results - last 24 hr 09/19/19 09/19/19 09/20/19 18:30 21:00 05:25 WBC 6.1 RBC 4.84 Hgb 14.6 Hct 43.6 MCV 90.1 MCH 30.2 MCHC 33.5 RDW 13.4 Plt Count 158 Neut % (Auto) 55.4 Lymph % (Auto) 33.1 Door % (Auto) 7.3 Eos % (Auto) 3.5 Baso % (Auto) 0.7 Neut # (Auto) 3400 Lymph # (Auto) 2000 Door # (Auto) 500 Eos # (Auto) 200 Baso # (Auto) 0 Sodium Potassium Chloride Carbon Dioxide BUN Creatinine Estimated GFR BUN/Creatinine Ratio Glucose Calcium Phosphorus Magnesium Troponin I < 0.012 TSH Urine Color Yellow Urine Appearance Clear Urine pH 7.5 Ur Specific [place] 1.010 Urine Protein Negative Urine Glucose (UA) Negative Urine Ketones Trace H Urine Occult Blood Negative Urine Nitrate Negative Urine Bilirubin Negative Urine Urobilinogen 0.2 Ur Leukocyte Esterase Negative Urine RBC None seen Urine WBC 0-1/hpf Ur Squamous Epith Cells 0-1 /hpf Urine Bacteria None seen Ur Culture Indicated? Cult not indicated 09/20/19 09/20/19 05:25 05:25 WBC RBC Hgb Hct MCV MCH MCHC RDW Plt Count Neut % (Auto) Lymph % (Auto) Door % (Auto) Eos % (Auto) Baso % (Auto) Neut # (Auto) Lymph # (Auto) Door # (Auto) Eos # (Auto) Baso # (Auto) Sodium 138 Potassium 4.2 Chloride 105 Carbon Dioxide 27 BUN 19 Creatinine 0.90 Estimated GFR > 60.0 BUN/Creatinine Ratio 21.1 Glucose 86 Calcium 9.2 Phosphorus 4.0 H Magnesium 2.3 Troponin I TSH 1.22 Urine Color Urine Appearance Urine pH Ur Specific [place] Urine Protein Urine Glucose (UA) Urine Ketones Urine Occult Blood Urine Nitrate Urine Bilirubin Urine Urobilinogen Ur Leukocyte Esterase Urine RBC Urine WBC Ur Squamous Epith Cells Urine Bacteria Ur Culture Indicated? Discharge Plan Discharge Plan Patient Disposition: Home Discharge comment: You were admitted to the hospital with chest pain. Your echocardiogram showed a normal ejection fraction. Your stress test is low risk. You are being discharged home, no medication changes were made. Please follow up with your primary care provider and endless track vehicle supervisor as previously scheduled. Discharge orders & Medications Prescriptions: Continued atorvastatin 40 mg tablet 40 mg PO DAILY RF: 0 sumatriptan succinate [Imitrex] 50 MG tablet 50 mg PO SEE INSTRUCTIONS Qty: 9 RF: 3 clopidogrel [Plavix] 75 mg tablet 75 mg PO DAILY RF: 0 nitroglycerin 0.4 mg tablet, sublingual 0.4 mg SL Q5-15M PRN (Reason: Chest Pain) RF: 0 aspirin [Adult Aspirin Regimen] 81 mg tablet,delayed release (DR/EC) 81 mg PO DAILY RF: 0 acetaminophen [Tylenol] 325 mg capsule 650 mg PO QID PRN (Reason: pain) Qty: 60 RF: 0 metoprolol succinate 50 mg tablet extended release 24 hr 25 mg PO BID RF: 0 lisinopril 10 mg tablet 10 mg PO DAILY RF: 0 zolpidem 10 mg tablet 10 mg PO BEDTIME RF: 0 Follow up/Referrals: Enzo Lance MD [Primary Care Provider] - Diet/Activity/Treatments Diet: Diet as Tolerated and Low-cholesterol Activity: As tolerated Visit Report/Discharge Packet Visit Report Forms: Patient Portal/API, Stroke Signs & Symptoms Discharge Data Primary Care Provider: Enzo Lance Attending Provider: Adalberto Chang Admit Date/Time: 09/19/19 17:02 Quality VTE Deep Vein Thrombosis/Pulmonary Embolism Present on Admission: No
--- NOTE | 2019-09-26 10:17 | DI.NM.S_ITS ---
DATE OF SERVICE: PROCEDURE: Perfusion study. INDICATION: Chest pain with known history of coronary artery disease, hypertension, hyperlipidemia. RADIOPHARMACEUTICAL: 27.3 mCi technetium-99m Myoview IV was injected at stress. Please note, this is a stress perfusion study only. CARDIAC STRESS: Initially, patient attempted exercise stress test. He walked on [place] protocol for 5 minutes 20 seconds however achieved only maximum heart rate of 99. Patient was on beta-kandy, and last dose he took yesterday morning. He also felt fatigued. Hence, exercise stress test was converted to pharmacological stress test. He received IV Lexiscan as per standard protocol under the supervision of an attending staff. He remained hemodynamically stable. He had mild chest discomfort which didn't get worse. Baseline EKG revealed sinus rhythm with some nonspecific ST-T changes. Stress EKG did not reveal any convincing ischemic changes. No significant arrhythmias. RAW DATA: There was increased subdiaphragmatic activity. GATED STUDY: Stress LV ejection fraction 89% without any obvious wall motion abnormalities. Lung/heart ratio 0.29, which was within normal limits. Stress end-diastolic volume 65 mL. MYOCARDIAL PERFUSION: Stress supine images revealed small-sized mildly decreased perfusion of base-to-mid inferior wall which got resolved during prone images, suggestive of diaphragmatic tissue attenuation artifact. On prone images, no convincing perfusion defect. CONCLUSION: I will call this study a normal myocardial perfusion study with evidence of diaphragmatic tissue attenuation artifact which got resolved during prone images. Patient had perfusion study in March 2017. At that time also, he had similar perfusion defect which got resolved during prone images. Overall, this is a low-risk myocardial perfusion scan. Garrett Hassan - TOOLROOM MACHINIST/fn/kv doc#: [id number]/job#: [id number] dd: 09/20/2019 16:19:00 dt: 09/20/2019 16:53:00 DICTATING MD/COPIES TO: James Jacobsen MD COPIES MNE: LUCINA
== END 2019-09-20 17:33 | disposition home or self-care (01) ==
LOC: ED 16:37 → AC 17:03
PROVIDERS: Admitting Provider Internal Medicine; Emergency Provider Emergency Medicine; Family Provider Student in an Organized Health Care Education/Training Program; PCP Student in an Organized Health Care Education/Training Program; Visit Provider Internal Medicine
DX: R07.9 Chest pain, unspecified (principal); I25.10 Atherosclerotic heart disease of native coronary artery without angina pectoris; R30.0 Dysuria; I10 Essential (primary) hypertension; E78.5 Hyperlipidemia, unspecified; Z23 Encounter for immunization
CPT/HCPCS: 36415; 71045; 78451; 80048; 80053; 81001; 82550; 83690; 83735; 83880; 84100; 84443; 84484; 85025; 85610; 85730; 90471; 90662; 93005; 93016; 93017; 93018; 93307; 96360; 96361; 99283; 99285; G0378; A9502; J2785

== ENCOUNTER → 2020-06-20 14:00 | Outpatient (CLI) | payer OTHER, SELFPAY ==
[2020-06-20 15:43] LABS: BUN Creatinine Ratio 19.8 (6-22); Blood Urea Nitrogen 16 mg/dL (9-20); Calcium 10.1 mg/dL (8.4-10.2); Carbon Dioxide 27 mmol/L (22-32); Chloride 104 mmol/L (98-107); Estimated Glomerular Filt Rate > 60.0 mL/min (>60); Glucose 85 mg/dL (80-110); HEMOLYSIS < 15 (0-50); Potassium 4.3 mmol/L (3.4-5.1); Sodium 139 mmol/L (137-145)
[2020-06-20 16:13] LABS: Prostate Specific Antigen Scrn 2.34 ng/mL (0.1-4.0)
== END ==
PROVIDERS: Family Provider Student in an Organized Health Care Education/Training Program; PCP Student in an Organized Health Care Education/Training Program; Referring Provider Student in an Organized Health Care Education/Training Program; Visit Provider Student in an Organized Health Care Education/Training Program
DX: Z12.5 Encounter for screening for malignant neoplasm of prostate (principal); I10 Essential (primary) hypertension
CPT/HCPCS: 36415; 80048; G0103

== ENCOUNTER 2020-08-16 16:37 | Emergency (ER) | payer OTHER, SELFPAY ==
[2020-08-16] VITALS (15 sets, daily range): BP systolic 100–149; BP diastolic 60–74; PULSE 55–80; RESP 10–20; TEMP 36.8; O2SAT 93–97
--- NOTE | 2020-08-16 16:45 | DI.RAD.S_ITS ---
PROCEDURE: XR CHEST 1V INDICATIONS: chest pain TECHNIQUE: One view of the chest was acquired. COMPARISON: [facility], , XR CHEST 1V, 09/19/2019, 13:10. [facility], , CHEST 1 VIEW, 05/06/2011, 17:52. FINDINGS: Surgical changes and devices: None. Lungs and pleura: Lungs are clear. No pleural effusions or pneumothorax. Mediastinum: Mediastinal contours appear normal. Heart size is normal. Bones and chest wall: No suspicious bony lesions. Overlying soft tissues appear unremarkable. IMPRESSION: Reduced inspiratory volume, patient tilt and rotation rightward. Given the reduced inspiration there is bronchovascular marking crowding and also a component of atelectasis superimposed. A definite CHF pattern is not found when these factors are taken into account. Dictated by: Channing Magallanes M.D. on 08/16/2020 at 17:07 Approved by: Channing Magallanes M.D. on 08/16/2020 at 17:08
[2020-08-16 16:57] LABS: Add Manual Diff / Slide Review NO; Basophils Absolute Auto 0 /uL (0-100); Basophils Percent Auto 0.7 % (0-2); Eosinophils Absolute Auto 200 /uL (0-450); Eosinophils Percent Auto 2.7 % (2-4); Hematocrit 43.1 % (41-53); Hemoglobin 14.5 g/dL (13.5-17.5); Lymphocytes Absolute Auto 1400 /uL (1100-4500); Mean Corpuscular HGB Conc 33.8 % (30-36); Mean Corpuscular Hemoglobin 30.6 PG (26-34); Mean Corpuscular Volume 90.6 fL (80-100); Monocytes Absolute Auto 500 /uL (0-900); Monocytes Percent Auto 7.9 % (3-14); Neutrophils Absolute Auto 3800 /uL (1500-7000); Neutrophils Percent Auto 64.7 % (50-75); Platelet Count 162 X10^3/uL (150-400); Red Blood Cell Count 4.76 X10^6/uL (4.5-5.9); Red Cell Distribution Width 13.5 % (11.6-14.8); White Blood Cell Count 5.9 X10^3/uL (4.5-11.0)
--- NOTE | 2020-08-16 16:59 | ED_ITS ---
HPI - Arrhythmia/Palpitations <DO Luigi Sanchez Last Filed: 08/17/20 07:18> General Chief Complaint: Arrhythmia/Palpitations Stated Complaint: heart feels different Time Seen by Provider: 08/16/20 16:49 Source: patient Mode of arrival: Ambulatory Limitations: no limitations History of Present Illness HPI narrative: Patient is a 69-year-old male with history of coronary artery disease including cardiac stents and cardiac arrest last year presenting today with chest gurgling or possibly fluttering. He says he has a difficult time describing is he is unsure what squeezing or heaviness feels like. He said that he was talking with his granddaughter when it started. Says previously he never had any symptoms. He says since his cardiac arrest he has aches and pains and tightness some weird sensations at baseline but this is different. He denies any burping no radiation of the discomfort or gurgling. Denies any belching he has no shortness of breath with exertion no nausea. He is on both aspirin and Plavix. He actually had stents failed previously. He is followed by [facility] cardiology.ashley this past summer and has some ongoing issues with that. Severity: mild Related Data Home Medications Medication Instructions Recorded Confirmed nitroglycerin 0.4 mg sublingual 0.4 mg SL Q5-15M PRN 12/27/18 07/19/20 tablet aspirin 81 mg tablet,delayed 81 mg PO DAILY 02/14/19 07/19/20 release atorvastatin 40 mg tablet 40 mg PO DAILY tab 03/23/19 07/19/20 clopidogrel 75 mg tablet 75 mg PO DAILY 03/23/19 07/19/20 lisinopril 10 mg PO DAILY 09/19/19 07/19/20 metoprolol succinate 25 mg PO BID 09/19/19 07/19/20 Previous Rx's Medication Instructions Recorded acetaminophen [Tylenol] 650 mg PO QID PRN #60 cap 08/29/19 zolpidem 10 mg tablet 10 mg PO BEDTIME #30 tab 02/16/20 Allergies Allergy/AdvReac Type Severity Reaction Status Date / Time No Known Drug Allergies Allergy Verified 07/19/20 16:37 Review of Systems <DO Luigi Sanchez Last Filed: 08/17/20 07:18> Review of Systems Narrative: GENERAL: Denies chills, fatigue, malaise, fever, sweats, travel HEENT: Denies sinus pain, ear pain, sore throat, difficulty swallowing, neck pain RESPIRATORY: Denies dyspnea, cough, wheezing, hemoptysis, sputum. CARDIOVASCULAR: See HPI GASTROINTESTINAL: Denies nausea, vomiting, abdominal pain, diarrhea, constipation, melena. : Denies dysuria, frequency, incontinence, hematuria, urinary retention, flank pain. MUSCULOSKELETAL: Denies weakness, joint pain, or bony pain SKIN: No rash, no erythema, no pruritus NEUROLOGIC: Denies weakness, dizziness, headache, numbness, change in speech, confusion PSYCHIATRIC: No concerning psychosocial issues. 12 point review of systems is negative except for those stated above and HPI Patient History <Stella Palencia DO - Last Filed: 08/17/20 07:18> Medical History ADHD (attention deficit hyperactivity disorder) (Chronic) Basal cell carcinoma (Resolved) Chronic low back pain (Chronic) Cluster headaches (Chronic) Colon polyps (Resolved) Coronary artery disease (Chronic) Hyperlipidemia (Chronic) Hypertension (Chronic) Insomnia (Chronic) Myocardial infarction (Acute) Surgical History History of cardiac cath (Acute) History of vasectomy (1993) Hx of colonoscopy with polypectomy (Resolved 06/2014) Hx of coronary angioplasty (Resolved) Hx of heart artery stent (Resolved) Family History Father Diabetes mellitus Social History household members: none Smoking Status: Never smoker alcohol intake: current substance use type: does not use Smoking Status: Never smoker alcohol intake frequency: 0-2 drinks per day Substance Use Type: does not use Exam <Stella Palencia DO - Last Filed: 08/17/20 07:18> Initial Vital Signs Initial Vital Signs: Vital Signs Temperature 98.2 F 08/16/20 16:43 Pulse Rate 74 08/16/20 16:43 Respiratory Rate 20 08/16/20 16:43 Blood Pressure 149/74 H 08/16/20 16:43 Pulse Oximetry 95 08/16/20 16:43 GENERAL: Well-appearing, well-nourished and in no acute distress. HEENT: Head atraumatic,EOMI, pupils reactive, face symmetric, moist mucous membranes CARDIOVASCULAR: Regular rate and rhythm without murmurs, rubs or gallops. RESPIRATORY: Breath sounds equal bilaterally, no wheezes rales or rhonchi. ABDOMEN: Soft, nontender. Normoactive bowel sounds all 4 quadrants. No guarding or rebound. EXTREMITIES: Normal range of motion, no clubbing or edema. Neurovascularly intact NEUROLOGICAL: Alert and oriented x4.Normal gait and speech. SKIN: Warm, dry, no laceration, no petechiae, no rashes or lesions. <Salomon Martin MD - Last Filed: 08/16/20 23:10> Initial Vital Signs Initial Vital Signs: Vital Signs Temperature 98.2 F 08/16/20 16:43 Pulse Rate 74 08/16/20 16:43 Respiratory Rate 20 08/16/20 16:43 Blood Pressure 149/74 H 08/16/20 16:43 Pulse Oximetry 95 08/16/20 16:43 Course <Stella Palencia DO - Last Filed: 08/17/20 07:18> Orders Ordered: Discontinued Medications Nitroglycerin (Nitrostat) 0.4 mg SL [id number] PRN PRN Reason: Chest Pain Last Admin: 08/16/20 17:35 Dose: 0.4 mg Documented by: Admin: 08/16/20 17:17 Dose: 0.4 mg Documented by: KARI Pantoprazole Sodium (Protonix) 40 mg IV NOW ONE Stop: 08/16/20 17:14 Last Admin: 08/16/20 17:19 Dose: 40 mg Documented by: KARI Vital Signs Vital signs: Vital Signs - 8 hr 08/16/20 16:43 08/16/20 16:50 08/16/20 17:00 Temperature 98.2 F Pulse Rate 74 74 73 Respiratory Rate 20 Blood Pressure 149/74 H Pulse Oximetry 95 95 94 08/16/20 17:17 08/16/20 17:30 08/16/20 17:33 Temperature Pulse Rate 75 79 79 Respiratory Rate 10 L 16 Blood Pressure 149/74 H 114/65 Pulse Oximetry 93 93 08/16/20 17:35 08/16/20 18:00 08/16/20 18:30 Temperature Pulse Rate 80 74 67 Respiratory Rate 12 10 L Blood Pressure 114/65 100/60 108/69 Pulse Oximetry 94 94 08/16/20 19:19 08/16/20 19:30 08/16/20 20:00 Temperature Pulse Rate 64 62 58 L Respiratory Rate 14 11 L 10 L Blood Pressure Pulse Oximetry 97 96 96 08/16/20 20:30 08/16/20 20:42 08/16/20 21:00 Temperature Pulse Rate 55 L 58 L 60 Respiratory Rate 18 18 16 Blood Pressure 119/70 113/70 Pulse Oximetry 95 95 94 <Salomon Martin MD - Last Filed: 08/16/20 23:10> Orders Ordered: Discontinued Medications Nitroglycerin (Nitrostat) 0.4 mg SL [id number] PRN PRN Reason: Chest Pain Last Admin: 08/16/20 17:35 Dose: 0.4 mg Documented by: Admin: 08/16/20 17:17 Dose: 0.4 mg Documented by: KARI Pantoprazole Sodium (Protonix) 40 mg IV NOW ONE Stop: 08/16/20 17:14 Last Admin: 08/16/20 17:19 Dose: 40 mg Documented by: KARI Consultations Consultation #1: s/w hospitalist, dr will [facility]...will accept Time: 20:21 Vital Signs Vital signs: Vital Signs - 8 hr 08/16/20 16:43 08/16/20 16:50 08/16/20 17:00 Temperature 98.2 F Pulse Rate 74 74 73 Respiratory Rate 20 Blood Pressure 149/74 H Pulse Oximetry 95 95 94 08/16/20 17:17 08/16/20 17:30 08/16/20 17:33 Temperature Pulse Rate 75 79 79 Respiratory Rate 10 L 16 Blood Pressure 149/74 H 114/65 Pulse Oximetry 93 93 08/16/20 17:35 08/16/20 18:00 08/16/20 18:30 Temperature Pulse Rate 80 74 67 Respiratory Rate 12 10 L Blood Pressure 114/65 100/60 108/69 Pulse Oximetry 94 94 08/16/20 19:19 08/16/20 19:30 08/16/20 20:00 Temperature Pulse Rate 64 62 58 L Respiratory Rate 14 11 L 10 L Blood Pressure Pulse Oximetry 97 96 96 08/16/20 20:30 08/16/20 20:42 08/16/20 21:00 Temperature Pulse Rate 55 L 58 L 60 Respiratory Rate 18 18 16 Blood Pressure 119/70 113/70 Pulse Oximetry 95 95 94 MDM - Arrhythmia/Palpitations <Stella DO Slime - Last Filed: 08/17/20 07:18> Lab Data Attestation: I reviewed the patient's lab results. Result diagrams: 08/16/20 16:50 08/16/20 16:50 Labs: Lab Results 08/16/20 08/16/20 08/16/20 Range/Units 16:50 16:50 16:50 WBC 5.9 (4.5-11.0) X10^3/uL RBC 4.76 (4.5-5.9) X10^6/uL Hgb 14.5 (13.5-17.5) g/dL Hct 43.1 (41-53) % MCV 90.6 (80-100) fL MCH 30.6 (26-34) PG MCHC 33.8 (30-36) % RDW 13.5 (11.6-14.8) % Plt Count 162 (150-400) X10^3/uL Neut % (Auto) 64.7 (50-75) % Lymph % (Auto) 24.0 L (25-40) % [place] % (Auto) 7.9 (3-14) % Eos % (Auto) 2.7 (2-4) % Baso % (Auto) 0.7 (0-2) % Neut # (Auto) 3800 (0478-5534) /uL Lymph # (Auto) 1400 (1904-9799) /uL [place] # (Auto) 500 (0-900) /uL Eos # (Auto) 200 (0-450) /uL Baso # (Auto) 0 (0-100) /uL PT 11.7 (10.1-12.7) SECONDS INR 1.0 (0.9-1.3) APTT 32 D (26.4-36.2) SECONDS Sodium 139 (137-145) mmol/L Potassium 3.9 (3.4-5.1) mmol/L Chloride 107 (98-107) mmol/L Carbon Dioxide 26 (22-32) mmol/L BUN 16 (9-20) mg/dL Creatinine 0.83 (0.66-1.25) mg/dL Estimated GFR > 60.0 (>60) mL/min BUN/Creatinine Ratio 19.3 (6-22) Glucose 127 H (80-110) mg/dL Calcium 9.0 (8.4-10.2) mg/dL Total Bilirubin 0.7 (0.2-1.3) mg/dL AST 32 (17-59) IU/L ALT 31 (<50) IU/L Alkaline Phosphatase 51 (38-126) U/L Total Creatine Kinase 190 H (55-170) U/L CK-MB (CK-2) 1.45 (<2.37) ng/mL CK-MB (CK-2) Rel Index 0.8 L (1.5-5.0) % Troponin I < 0.012 (0.01-0.034) ng/mL Total Protein 6.9 (6.3-8.2) g/dL Albumin 4.3 (3.5-5.0) g/dL Globulin 2.6 (1.7-4.1) g/dL Albumin/Globulin Ratio 1.7 (1.0-2.8) Lipase 119 (23-300) U/L 08/16/20 08/16/20 Range/Units 18:32 20:07 WBC (4.5-11.0) X10^3/uL RBC (4.5-5.9) X10^6/uL Hgb (13.5-17.5) g/dL Hct (41-53) % MCV (80-100) fL MCH (26-34) PG MCHC (30-36) % RDW (11.6-14.8) % Plt Count (150-400) X10^3/uL Neut % (Auto) (50-75) % Lymph % (Auto) (25-40) % [place] % (Auto) (3-14) % Eos % (Auto) (2-4) % Baso % (Auto) (0-2) % Neut # (Auto) (3601-5777) /uL Lymph # (Auto) (0006-1453) /uL [place] # (Auto) (0-900) /uL Eos # (Auto) (0-450) /uL Baso # (Auto) (0-100) /uL PT (10.1-12.7) SECONDS INR (0.9-1.3) APTT (26.4-36.2) SECONDS Sodium (137-145) mmol/L Potassium (3.4-5.1) mmol/L Chloride (98-107) mmol/L Carbon Dioxide (22-32) mmol/L BUN (9-20) mg/dL Creatinine (0.66-1.25) mg/dL Estimated GFR (>60) mL/min BUN/Creatinine Ratio (6-22) Glucose (80-110) mg/dL Calcium (8.4-10.2) mg/dL Total Bilirubin (0.2-1.3) mg/dL AST (17-59) IU/L ALT (<50) IU/L Alkaline Phosphatase (38-126) U/L Total Creatine Kinase (55-170) U/L CK-MB (CK-2) (<2.37) ng/mL CK-MB (CK-2) Rel Index (1.5-5.0) % Troponin I < 0.012 < 0.012 (0.01-0.034) ng/mL Total Protein (6.3-8.2) g/dL Albumin (3.5-5.0) g/dL Globulin (1.7-4.1) g/dL Albumin/Globulin Ratio (1.0-2.8) Lipase (23-300) U/L ECG Data Attestation: I personally reviewed and interpreted this ECG as follows: Prior ECG tracings: available for review Interpretation: Normal sinus rhythm rate 73 p.r. 156 QRS [address] change s similar to previous EKG MDM Narrative Medical decision making narrative: Patient is difficult to read. He did have some symptoms in the ED he was given nitroglycerin which he says he overall feels better. He thinks maybe this is angina. Patient is unsure if he wants to stay in hospital or be transferred to [facility]. Have discussed with him he should get a stress test which is currently unavailable at [facility]. 6:30 p.m. I spoke with Dr. vaz on-call Cardiology. Possibly transferred to [facility] for stress test and rule out however if patient is unwilling to stay, a follow-up with an outpatient. Long discussion with patient about being transferred to [facility] for observation and chest pain rule out. Patient really does not want to be in the hospital secondary to COVID-19. He is overall doing significantly better after nitroglycerin. I have discussed the patient his heart has not been completely ruled out. He was asymptomatic when he had his cardiac arrest previous MN I strongly encouraged and recommended him to stay despite risk of COVID-19. He states that he lives close and would much prefer to return to the ED if his chest pain worsens. Encouraged him even to call 911 if he need The patient is clinically sober, free from distracting injury, appears to have intact insight, judgment and reason. Does not meet criteria for involuntary hospitalization. Patient has the capacity to make decisions. Patient has changed his mind and would happily be be transferred to [facility] <Salomon Martin MD - Last Filed: 08/16/20 23:10> Lab Data Labs: Lab Results 08/16/20 08/16/20 08/16/20 Range/Units 16:50 16:50 16:50 WBC 5.9 (4.5-11.0) X10^3/uL RBC 4.76 (4.5-5.9) X10^6/uL Hgb 14.5 (13.5-17.5) g/dL Hct 43.1 (41-53) % MCV 90.6 (80-100) fL MCH 30.6 (26-34) PG MCHC 33.8 (30-36) % RDW 13.5 (11.6-14.8) % Plt Count 162 (150-400) X10^3/uL Neut % (Auto) 64.7 (50-75) % Lymph % (Auto) 24.0 L (25-40) % [place] % (Auto) 7.9 (3-14) % Eos % (Auto) 2.7 (2-4) % Baso % (Auto) 0.7 (0-2) % Neut # (Auto) 3800 (0785-1889) /uL Lymph # (Auto) 1400 (1822-4317) /uL [place] # (Auto) 500 (0-900) /uL Eos # (Auto) 200 (0-450) /uL Baso # (Auto) 0 (0-100) /uL PT 11.7 (10.1-12.7) SECONDS INR 1.0 (0.9-1.3) APTT 32 D (26.4-36.2) SECONDS Sodium 139 (137-145) mmol/L Potassium 3.9 (3.4-5.1) mmol/L Chloride 107 (98-107) mmol/L Carbon Dioxide 26 (22-32) mmol/L BUN 16 (9-20) mg/dL Creatinine 0.83 (0.66-1.25) mg/dL Estimated GFR > 60.0 (>60) mL/min BUN/Creatinine Ratio 19.3 (6-22) Glucose 127 H (80-110) mg/dL Calcium 9.0 (8.4-10.2) mg/dL Total Bilirubin 0.7 (0.2-1.3) mg/dL AST 32 (17-59) IU/L ALT 31 (<50) IU/L Alkaline Phosphatase 51 (38-126) U/L Total Creatine Kinase 190 H (55-170) U/L CK-MB (CK-2) 1.45 (<2.37) ng/mL CK-MB (CK-2) Rel Index 0.8 L (1.5-5.0) % Troponin I < 0.012 (0.01-0.034) ng/mL Total Protein 6.9 (6.3-8.2) g/dL Albumin 4.3 (3.5-5.0) g/dL Globulin 2.6 (1.7-4.1) g/dL Albumin/Globulin Ratio 1.7 (1.0-2.8) Lipase 119 (23-300) U/L 08/16/20 08/16/20 Range/Units 18:32 20:07 WBC (4.5-11.0) X10^3/uL RBC (4.5-5.9) X10^6/uL Hgb (13.5-17.5) g/dL Hct (41-53) % MCV (80-100) fL MCH (26-34) PG MCHC (30-36) % RDW (11.6-14.8) % Plt Count (150-400) X10^3/uL Neut % (Auto) (50-75) % Lymph % (Auto) (25-40) % [place] % (Auto) (3-14) % Eos % (Auto) (2-4) % Baso % (Auto) (0-2) % Neut # (Auto) (0174-2021) /uL Lymph # (Auto) (8506-6645) /uL [place] # (Auto) (0-900) /uL Eos # (Auto) (0-450) /uL Baso # (Auto) (0-100) /uL PT (10.1-12.7) SECONDS INR (0.9-1.3) APTT (26.4-36.2) SECONDS Sodium (137-145) mmol/L Potassium (3.4-5.1) mmol/L Chloride (98-107) mmol/L Carbon Dioxide (22-32) mmol/L BUN (9-20) mg/dL Creatinine (0.66-1.25) mg/dL Estimated GFR (>60) mL/min BUN/Creatinine Ratio (6-22) Glucose (80-110) mg/dL Calcium (8.4-10.2) mg/dL Total Bilirubin (0.2-1.3) mg/dL AST (17-59) IU/L ALT (<50) IU/L Alkaline Phosphatase (38-126) U/L Total Creatine Kinase (55-170) U/L CK-MB (CK-2) (<2.37) ng/mL CK-MB (CK-2) Rel Index (1.5-5.0) % Troponin I < 0.012 < 0.012 (0.01-0.034) ng/mL Total Protein (6.3-8.2) g/dL Albumin (3.5-5.0) g/dL Globulin (1.7-4.1) g/dL Albumin/Globulin Ratio (1.0-2.8) Lipase (23-300) U/L Discharge Plan Departure Patient Disposition: [facility] Clinical Impression: Chest pain Qualifiers: Chest pain type: unspecified Qualified Code(s): R07.9 - Chest pain, unspecified Discharge Date/Time: 08/16/20 21:33 Instructions: DI for Chest Pain Activity Restrictions/Additional Instructions: *You have been diagnosed with chest pain *What to do: I am glad that you are feeling better however heart attack has not yet been completely ruled out. It is strongly recommended that you have a stress test. PLEASE RETURN TO THE EMERGENCY DEPARTMENT AT ANY TIME IF YOU SHOULD HAVE ANY NEW OR WORSENING SYMPTOMS. I ENCOURAGE YOU TO EVEN CALL 911 YOU IN YOU ARE HAVING CHEST PAIN *Continue to take medications as directed *Follow up with your primary care provider in 2-3 days *Return to ER if you should have worsening chest discomfort, shortness of breath, nausea, dizziness, lightheadedness, passing or any new, worsening or c oncerning symptoms Prescriptions: No Action atorvastatin 40 mg tablet 40 mg PO DAILY RF: 0 clopidogrel [Plavix] 75 mg tablet 75 mg PO DAILY RF: 0 zolpidem 10 mg tablet 10 mg PO BEDTIME Qty: 30 RF: 5 nitroglycerin 0.4 mg tablet, sublingual 0.4 mg SL Q5-15M PRN (Reason: Chest Pain) RF: 0 aspirin [Adult Aspirin Regimen] 81 mg tablet,delayed release (DR/EC) 81 mg PO DAILY RF: 0 acetaminophen [Tylenol] 325 mg capsule 650 mg PO QID PRN (Reason: pain) Qty: 60 RF: 0 metoprolol succinate 50 mg tablet extended release 24 hr 25 mg PO BID RF: 0 lisinopril 10 mg tablet 10 mg PO DAILY RF: 0 Referrals: Enzo Lance MD [Primary Care Provider] -
[2020-08-16 17:04] LABS: Prothrombin Time 11.7 SECONDS (10.1-12.7)
[2020-08-16 17:06] LABS: PTT Partial Thromboplastin Tim 32 SECONDS (26.4-36.2)
[2020-08-16 17:08] LABS: Alanine Aminotransferase 31 IU/L (<50); Albumin 4.3 g/dL (3.5-5.0); Albumin Globulin Ratio 1.7 (1.0-2.8); Alkaline Phosphatase 51 U/L (38-126); Aspartate Aminotransferase 32 IU/L (17-59); BUN Creatinine Ratio 19.3 (6-22); Bilirubin Total 0.7 mg/dL (0.2-1.3); Blood Urea Nitrogen 16 mg/dL (9-20); Carbon Dioxide 26 mmol/L (22-32); Chloride 107 mmol/L (98-107); Creatine Kinase 190 U/L (55-170); Estimated Glomerular Filt Rate > 60.0 mL/min (>60); Globulin 2.6 g/dL (1.7-4.1); Glucose 127 mg/dL (80-110); HEMOLYSIS 23 (0-50); Lipase 119 U/L (23-300); Potassium 3.9 mmol/L (3.4-5.1); Sodium 139 mmol/L (137-145); Total Protein 6.9 g/dL (6.3-8.2)
[2020-08-16] MEDS: NITROGLYCERIN 0.4 MG SL TAB SL ×2 (17:17→17:35)
[2020-08-16 17:19] LABS: Troponin I < 0.012 ng/mL (0.01-0.034)
[2020-08-16] MEDS: PANTOPRAZOLE 40 MG VIAL IV (17:19)
[2020-08-16 17:23] LABS: CKMB % Relative Index 0.8 % (1.5-5.0); Creatine Kinase MB 1.45 ng/mL (<2.37)
[2020-08-16 19:05] LABS: Troponin I < 0.012 ng/mL (0.01-0.034)
[2020-08-16 21:11] LABS: Troponin I < 0.012 ng/mL (0.01-0.034)
== END 2020-08-16 21:33 | disposition short-term general hospital (02) ==
PROVIDERS: Emergency Provider Emergency Medicine; Family Provider Student in an Organized Health Care Education/Training Program; PCP Student in an Organized Health Care Education/Training Program
DX: R07.9 Chest pain, unspecified (principal); Z95.5 Presence of coronary angioplasty implant and graft
CPT/HCPCS: 36415; 71045; 80053; 82550; 82553; 83690; 84484; 85025; 85610; 85730; 93005; 93010; 96374; 99284; C9113

== ENCOUNTER → 2021-07-09 15:15 | Outpatient (CLI) | payer OTHER, SELFPAY ==
[2020-08-20 12:19] VITALS: BMI 26.5
[2021-07-09 17:24] LABS: Hematocrit 45.9 % (41-53); Hemoglobin 15.4 g/dL (13.5-17.5); Mean Corpuscular HGB Conc 33.6 % (30-36); Mean Corpuscular Hemoglobin 29.9 PG (26-34); Platelet Count 173 X10^3/uL (150-400); Red Blood Cell Count 5.16 X10^6/uL (4.5-5.9); Red Cell Distribution Width 13.8 % (11.6-14.8); White Blood Cell Count 7.3 X10^3/uL (4.5-11.0)
[2021-07-09 17:46] LABS: BUN Creatinine Ratio 19.3 (6-22); Blood Urea Nitrogen 17 mg/dL (9-20); Calcium 9.3 mg/dL (8.4-10.2); Carbon Dioxide 27 mmol/L (22-32); Chloride 106 mmol/L (98-107); Estimated Glomerular Filt Rate > 60.0 mL/min (>60); Glucose 88 mg/dL (80-110); HEMOLYSIS 16 (0-50); Potassium 4.1 mmol/L (3.4-5.1); Sodium 139 mmol/L (137-145)
[2021-07-09 18:03] LABS: Vitamin D 25 Hydroxy (D3) 32.4 ng/mL (30.0-100.0)
[2021-07-09 18:17] LABS: TSH w/ Reflex to FT4 1.12 uIU/mL (0.47-4.68)
[2021-07-09 18:39] LABS: Vitamin B12 403 pg/mL (239-931)
== END ==
PROVIDERS: Family Provider Student in an Organized Health Care Education/Training Program; PCP Student in an Organized Health Care Education/Training Program; Referring Provider Student in an Organized Health Care Education/Training Program; Visit Provider Student in an Organized Health Care Education/Training Program
DX: I10 Essential (primary) hypertension (principal); Z12.5 Encounter for screening for malignant neoplasm of prostate; R53.83 Other fatigue; I25.10 Atherosclerotic heart disease of native coronary artery without angina pectoris; F34.1 Dysthymic disorder
CPT/HCPCS: 36415; 80048; 82306; 82607; 84443; 85027; G0103

== ENCOUNTER → 2022-09-29 10:15 | Outpatient (CLI) | payer OTHER, SELFPAY ==
[2020-08-20 12:19] VITALS: BMI 26.5
[2022-09-29 10:59] LABS: Add Manual Diff / Slide Review NO; Basophils Absolute Auto 0 /uL (0-100); Basophils Percent Auto 0.8 % (0-2); Eosinophils Absolute Auto 400 /uL (0-450); Eosinophils Percent Auto 7.2 % (2-4); Hematocrit 44.3 % (41-53); Lymphocytes Absolute Auto 1700 /uL (1100-4500); Lymphocytes Percent Auto 30.9 % (25-40); Mean Corpuscular HGB Conc 33.7 % (30-36); Mean Corpuscular Hemoglobin 29.2 PG (26-34); Mean Corpuscular Volume 86.4 fL (80-100); Monocytes Absolute Auto 400 /uL (0-900); Neutrophils Absolute Auto 3000 /uL (1500-7000); Neutrophils Percent Auto 53.1 % (50-75); Platelet Count 169 X10^3/uL (150-400); Red Blood Cell Count 5.13 X10^6/uL (4.5-5.9); Red Cell Distribution Width 13.9 % (11.6-14.8); White Blood Cell Count 5.6 X10^3/uL (4.5-11.0)
[2022-09-29 11:48] LABS: Cholesterol 111 mg/dL (140-199); HDL Cholesterol 36 mg/dL (40-60); LDL Cholesterol Calculated 58 mg/dL (<100); Triglycerides 83 mg/dL (35-150)
[2022-09-29 16:20] LABS: Prostate Specific Antigen Scrn 3.23 ng/mL (0.1-4.0)
[2022-10-01 16:48] LABS: Hep C Virus Ab w/Reflex Quant NEGATIVE s/c (NEGATIVE)
== END ==
PROVIDERS: Family Provider Student in an Organized Health Care Education/Training Program; PCP Student in an Organized Health Care Education/Training Program; Referring Provider Internal Medicine Cardiovascular Disease; Visit Provider Internal Medicine Cardiovascular Disease
DX: Z12.5 Encounter for screening for malignant neoplasm of prostate (principal); I25.10 Atherosclerotic heart disease of native coronary artery without angina pectoris; E78.2 Mixed hyperlipidemia; Z11.59 Encounter for screening for other viral diseases
CPT/HCPCS: 36415; 80061; 85025; 86803; G0103

== ENCOUNTER → 2022-11-12 08:48 | Outpatient (CLI) | payer OTHER, SELFPAY ==
[2020-08-20 12:19] VITALS: BMI 26.5
--- NOTE | 2022-11-12 | DI.NM.S_ITS ---
PROCEDURE: NM YOLA PERF SPECT REST & STR Rest and exercise myocardial perfusion SPECT with gated imaging and ejection fraction RADIOPHARMACEUTICAL: 12.1 mCi Tc-99m sestamibi IV at rest and 24.7 mCi Tc-99m sestamibi IV at peak exercise. A one day-protocol was performed. INDICATIONS: Atherosclerotic heart disease TECHNIQUE: Radiopharmaceutical was injected at peak stress test, and also at rest. SPECT images were obtained. SPECT myocardial perfusion images were displayed in short axis, horizontal long axis, and vertical long axis views. Gated images were reviewed using Isowalk software. COMPARISON: None. CARDIAC STRESS: A standard [place] treadmill exercise tolerance test was performed by the patient under the supervision of an attending staff. The patient exercised for 6 minutes and 12 seconds; functional aerobic impairment (AUGUSTIN) is +7%. Hemodynamic data: There is normal blood pressure and heart rate response to exercise stress. Patient achieved 90% of maximum predicted heart rate at peak exercise. Symptoms: Patient had mild chest pain at peak exercise. EKG: sinus rhythm at rest. Mild to moderate horizontal ST depressions in the inferior and anterolateral leads during recovery; occasional PVCs. FINDINGS: Raw data: There is good myocardial labeling by radiotracer. No significant motion artifacts. [id number]-[id number] ratio is 0.2 (normal is less than 0.38 for sestamibi tracer, and less than 0.50 for thallium tracer). Left ventricle function: Gated images demonstrate mild hypokinesis of the basal inferior wall. No transient ischemic dilation; TID is 0.44 (normal less than 1.3). The left ventricle resting end-diastolic volume is 86 mL. Left ventricle stress ejection fraction is 86%; normal values are above 45%. Myocardial perfusion: There is severe, mostly reversible defect in the basal inferior wall that is consistent with small prior non-transmural infarction with significant ischemia. IMPRESSION: Abnormal nuclear stress test consistent mostly with ischemia. 1) There is severe, mostly reversible defect in the basal inferior wall that is consistent with small prior non-transmural infarction and significant ischemia. 2) Normal left ventricular size and systolic function (EF post stress 86%). There is mild hypokinesis of the basal inferior wall. 3) Mild to moderate horizontal ST depressions in the inferior and anterolateral leads during recovery. 4) Mild chest discomfort at peak exercise. 5) Mildly reduced exercise tolerance (7.2 METs, AUGUSTIN +7%). Target heart rate achieved. Normal BP response to exercise. 6) Compared to the nuclear stress test done 04/19/2017, predominantly reversible basal inferior defect with horizontal ST depressions and chest discomfort are new on the current study. Dictated by: Kamron Cerna MD on 11/13/2022 at 13:30 Approved by: Kamron Cerna MD on 11/13/2022 at 13:38
[2022-11-12 09:44] LABS: COVID19 -Nasal RAPID Negative (Negative)
== END ==
PROVIDERS: Family Provider Student in an Organized Health Care Education/Training Program; PCP Student in an Organized Health Care Education/Training Program; Referring Provider Internal Medicine Cardiovascular Disease; Visit Provider Internal Medicine Cardiovascular Disease
DX: I25.10 Atherosclerotic heart disease of native coronary artery without angina pectoris (principal); R94.39 Abnormal result of other cardiovascular function study; Z20.822 Contact with and (suspected) exposure to COVID-19
CPT/HCPCS: 78452; 87635; 93017; A9502

== ENCOUNTER → 2022-12-12 11:34 | Outpatient (CLI) | payer OTHER, SELFPAY ==
[2020-08-20 12:19] VITALS: BMI 26.5
[2022-12-12 12:32] LABS: Add Manual Diff / Slide Review NO; Basophils Absolute Auto 0 /uL (0-100); Basophils Percent Auto 0.9 % (0-2); Eosinophils Absolute Auto 200 /uL (0-450); Eosinophils Percent Auto 3.8 % (2-4); Hematocrit 44.5 % (41-53); Lymphocytes Absolute Auto 1400 /uL (1100-4500); Lymphocytes Percent Auto 25.1 % (25-40); Mean Corpuscular HGB Conc 33.7 % (30-36); Mean Corpuscular Hemoglobin 29.1 PG (26-34); Mean Corpuscular Volume 86.5 fL (80-100); Monocytes Absolute Auto 400 /uL (0-900); Monocytes Percent Auto 7.3 % (3-14); Neutrophils Absolute Auto 3500 /uL (1500-7000); Neutrophils Percent Auto 62.9 % (50-75); Platelet Count 156 X10^3/uL (150-400); Red Blood Cell Count 5.14 X10^6/uL (4.5-5.9); Red Cell Distribution Width 14.3 % (11.6-14.8); White Blood Cell Count 5.6 X10^3/uL (4.5-11.0)
[2022-12-12 12:36] LABS: INR 1.2 (0.9-1.3); Prothrombin Time 13.3 SECONDS (10.1-12.7)
[2022-12-12 12:40] LABS: Blood Urea Nitrogen 15 mg/dL (9-20); Carbon Dioxide 23 mmol/L (22-32); Chloride 105 mmol/L (98-107); Estimated Glomerular Filt Rate > 60 mL/min (>60); Glucose 104 mg/dL (80-110); HEMOLYSIS 21 (0-50); Sodium 140 mmol/L (137-145)
== END ==
PROVIDERS: Family Provider Student in an Organized Health Care Education/Training Program; PCP Student in an Organized Health Care Education/Training Program; Referring Provider Nurse Practitioner Family; Visit Provider Nurse Practitioner Family
DX: R07.89 Other chest pain (principal); I25.10 Atherosclerotic heart disease of native coronary artery without angina pectoris; R94.39 Abnormal result of other cardiovascular function study
CPT/HCPCS: 36415; 80048; 85025; 85610

== ENCOUNTER → 2023-03-09 15:56 | Outpatient (CLI) | payer OTHER, SELFPAY ==
[2020-08-20 12:19] VITALS: BMI 26.5
[2023-03-09 17:00] LABS: Add Manual Diff / Slide Review NO; Basophils Absolute Auto 0 /uL (0-100); Basophils Percent Auto 0.6 % (0-2); Eosinophils Absolute Auto 200 /uL (0-450); Eosinophils Percent Auto 3.9 % (2-4); Hematocrit 39.6 % (41-53); Hemoglobin 13.5 g/dL (13.5-17.5); Lymphocytes Absolute Auto 1500 /uL (1100-4500); Lymphocytes Percent Auto 24.3 % (25-40); Mean Corpuscular Hemoglobin 29.5 PG (26-34); Mean Corpuscular Volume 86.9 fL (80-100); Monocytes Absolute Auto 500 /uL (0-900); Monocytes Percent Auto 8.6 % (3-14); Neutrophils Absolute Auto 3900 /uL (1500-7000); Neutrophils Percent Auto 62.6 % (50-75); Platelet Count 167 X10^3/uL (150-400); Red Blood Cell Count 4.56 X10^6/uL (4.5-5.9); Red Cell Distribution Width 13.8 % (11.6-14.8); White Blood Cell Count 6.2 X10^3/uL (4.5-11.0)
[2023-03-09 17:18] LABS: Alanine Aminotransferase 33 IU/L (<50); Albumin 4.1 g/dL (3.5-5.0); Albumin Globulin Ratio 1.6 (1.0-2.8); Alkaline Phosphatase 57 U/L (38-126); Aspartate Aminotransferase 29 IU/L (17-59); BUN Creatinine Ratio 15.8 (6-22); Bilirubin Total 0.6 mg/dL (0.2-1.3); Blood Urea Nitrogen 15 mg/dL (9-20); Calcium 8.8 mg/dL (8.4-10.2); Carbon Dioxide 23 mmol/L (22-32); Chloride 105 mmol/L (98-107); Creatine Kinase 242 U/L (55-170); Estimated Glomerular Filt Rate > 60 mL/min (>60); Globulin 2.5 g/dL (1.7-4.1); Glucose 90 mg/dL (80-110); HEMOLYSIS < 15 (0-50); Potassium 4.3 mmol/L (3.4-5.1); Sodium 137 mmol/L (137-145); Total Protein 6.6 g/dL (6.3-8.2)
[2023-03-09 17:33] LABS: CKMB % Relative Index 0.9 % (1.5-5.0); Creatine Kinase MB 2.21 ng/mL (<2.37)
[2023-03-09 17:44] LABS: Appearance Urine UA CLEAR; Bilirubin Urine UA NEGATIVE (NEGATIVE); Color Urine UA YELLOW; Glucose Urine UA NEGATIVE (Negative); Ketones Urine UA NEGATIVE (NEGATIVE); Leukocyte Esterase Urine UA NEGATIVE (NEGATIVE); Nitrite Urine UA NEGATIVE (Negative); Occult Blood Urine UA NEGATIVE (Negative); Protein Urine UA NEGATIVE (Negative); Specific Gravity Urine UA 1.015 (1.000-1.035)
[2023-03-09 17:54] LABS: Bacteria Urine None Seen; Culture Indicated Urine Cult Not Indicated; RBC Urine None Seen (0-5/HPF); WBC Urine None Seen (0-5/HPF)
== END ==
PROVIDERS: Family Provider Student in an Organized Health Care Education/Training Program; PCP Student in an Organized Health Care Education/Training Program; Referring Provider Internal Medicine Cardiovascular Disease; Visit Provider Internal Medicine Cardiovascular Disease
DX: I25.10 Atherosclerotic heart disease of native coronary artery without angina pectoris (principal); I10 Essential (primary) hypertension; E78.2 Mixed hyperlipidemia
CPT/HCPCS: 36415; 80053; 81001; 82550; 82553; 85025

== ENCOUNTER → 2023-05-24 15:52 | Outpatient (CLI) | payer OTHER, SELFPAY ==
[2020-08-20 12:19] VITALS: BMI 26.5
[2023-05-24 16:40] LABS: Hemoglobin 14.3 g/dL (13.5-17.5); Mean Corpuscular Hemoglobin 29.9 PG (26-34); Platelet Count 183 X10^3/uL (150-400); Red Blood Cell Count 4.78 X10^6/uL (4.5-5.9); Red Cell Distribution Width 14.7 % (11.6-14.8); White Blood Cell Count 6.1 X10^3/uL (4.5-11.0)
[2023-05-24 17:37] LABS: Blood Urea Nitrogen 17 mg/dL (9-20); Calcium 8.8 mg/dL (8.4-10.2); Carbon Dioxide 23 mmol/L (22-32); Chloride 104 mmol/L (98-107); Estimated Glomerular Filt Rate > 60 mL/min (>60); Glucose 125 mg/dL (80-110); HEMOLYSIS 16 (0-50); Potassium 3.7 mmol/L (3.4-5.1); Sodium 135 mmol/L (137-145)
== END ==
PROVIDERS: Family Provider Student in an Organized Health Care Education/Training Program; PCP Pediatrics; Referring Provider Internal Medicine Cardiovascular Disease; Visit Provider Internal Medicine Cardiovascular Disease
DX: E78.2 Mixed hyperlipidemia (principal); I25.10 Atherosclerotic heart disease of native coronary artery without angina pectoris
CPT/HCPCS: 36415; 80048; 85027

== ENCOUNTER → 2023-07-31 08:51 | Outpatient (CLI) | payer OTHER, SELFPAY ==
[2020-08-20 12:19] VITALS: BMI 26.5
[2023-07-31 09:31] LABS: Add Manual Diff / Slide Review NO; Basophils Absolute Auto 0 /uL (0-100); Basophils Percent Auto 0.8 % (0-2); Eosinophils Absolute Auto 500 /uL (0-450); Eosinophils Percent Auto 8.2 % (2-4); Hematocrit 42.9 % (41-53); Hemoglobin 14.7 g/dL (13.5-17.5); Lymphocytes Absolute Auto 1500 /uL (1100-4500); Lymphocytes Percent Auto 25.8 % (25-40); Mean Corpuscular HGB Conc 34.2 % (30-36); Mean Corpuscular Hemoglobin 30.4 PG (26-34); Mean Corpuscular Volume 88.8 fL (80-100); Monocytes Absolute Auto 500 /uL (0-900); Monocytes Percent Auto 7.8 % (3-14); Neutrophils Absolute Auto 3300 /uL (1500-7000); Neutrophils Percent Auto 57.4 % (50-75); Platelet Count 166 X10^3/uL (150-400); Red Blood Cell Count 4.83 X10^6/uL (4.5-5.9); Red Cell Distribution Width 13.9 % (11.6-14.8); White Blood Cell Count 5.8 X10^3/uL (4.5-11.0)
[2023-07-31 09:40] LABS: Alanine Aminotransferase 24 IU/L (<50); Albumin 3.9 g/dL (3.5-5.0); Albumin Globulin Ratio 1.3 (1.0-2.8); Alkaline Phosphatase 44 U/L (38-126); Aspartate Aminotransferase 22 IU/L (17-59); Bilirubin Total 0.7 mg/dL (0.2-1.3); Blood Urea Nitrogen 18 mg/dL (9-20); Calcium 9.2 mg/dL (8.4-10.2); Carbon Dioxide 25 mmol/L (22-32); Chloride 104 mmol/L (98-107); Cholesterol 214 mg/dL (140-199); Estimated Glomerular Filt Rate > 60 mL/min (>60); Globulin 2.9 g/dL (1.7-4.1); Glucose 95 mg/dL (80-110); HDL Cholesterol 35 mg/dL (40-60); HEMOLYSIS < 15 (0-50); LDL Cholesterol Calculated 142 mg/dL (<100); Magnesium 2.1 mg/dL (1.6-2.3); Sodium 137 mmol/L (137-145); Total Protein 6.8 g/dL (6.3-8.2); Triglycerides 186 mg/dL (35-150)
== END ==
PROVIDERS: Family Provider Student in an Organized Health Care Education/Training Program; PCP Family Medicine; Visit Provider Nurse Practitioner Family
DX: R09.89 Other specified symptoms and signs involving the circulatory and respiratory systems (principal); I25.10 Atherosclerotic heart disease of native coronary artery without angina pectoris; Z95.820 Peripheral vascular angioplasty status with implants and grafts; I65.21 Occlusion and stenosis of right carotid artery
CPT/HCPCS: 36415; 80053; 80061; 83735; 85025

== ENCOUNTER → 2023-09-02 06:58 | Outpatient (CLI) | payer OTHER, SELFPAY ==
[2020-08-20 12:19] VITALS: BMI 26.5
--- NOTE | 2023-09-02 | DI.US.S_ITS ---
PROCEDURE: US CAROTID DOPPLER BI INDICATIONS: CAD/ S/P ANGIO W/STENT /L BRUIT/STENOSIS R CAROTID TECHNIQUE: Color and pulse Doppler interrogation was performed of both carotid systems, with image documentation and velocity measurements. COMPARISON: [facility], , CAROTID ARTERY DOPPLER BILAT, 09/20/2017, 8:38. FINDINGS: Stenosis calculations are based on SRU (Society of Radiologists in Ultrasound) criteria. Right side: Brachial blood pressure: 120/75 mm Hg. Common carotid artery peak systolic velocity: 81 cm/sec. Previously 102 Internal carotid artery peak systolic velocity: 111 cm/sec. Previously 132 Internal carotid artery end diastolic velocity: 26 cm/sec. Previously 43 External carotid artery peak systolic velocity: 185 cm/sec. Previously 228 ICA/CCA peak systolic ratio: 1.37 . Previously 1.29 Jc scale imaging description: Extensive atherosclerotic disease. Percent internal carotid artery stenosis: Less than 50% stenosis by peak systolic velocity criteria . Vertebral artery: Flow direction is antegrade. Left side: Brachial blood pressure: 141/74 mm Hg. Common carotid artery peak systolic velocity: 65 cm/sec. Previously 98 Internal carotid artery peak systolic velocity: 91 cm/sec. Previously 108 Internal carotid artery end diastolic velocity: 30 cm/sec. Previously 38 External carotid artery peak systolic velocity: 272 cm/sec. Previously 194 ICA/CCA peak systolic ratio: 1.39 . Jc scale imaging description: Extensive atherosclerotic plaque Percent internal carotid artery stenosis: Less than 50% stenosis by peak systolic velocity criteria. Vertebral artery: Flow direction is antegrade. IMPRESSION: Less than 50% stenosis by peaks systolic velocity criteria. Overall, velocities appear decreased from prior. Extensive atherosclerotic plaque throughout the carotid systems. Asymmetric elevated blood pressure in the left upper extremity, which may indicate stenosis of the left subclavian artery. Dictated by: Marquis Hassan M.D. on 09/02/2023 at 12:09 Approved by: Marquis Hassan M.D. on 09/02/2023 at 12:31
--- NOTE | 2023-09-02 | DI.ECHO.S_ITS ---
[facility]---------+ [facility] +---------+ : : [address] : : : : [id number] : : : : Phone: [phone]---------+ Echocardiogram Report + + :Name: ARMANDO PARISH Study Date: 09/02/2023 Height: 70 in : :[facility] ReadingLocation: Weight: 210 lb : : Gender: Male BSA: 2.1 m2 : :: 1950 Age: 72 yrs BP: 153/84 mmHg: :Reason For Study: Coronary Artery Disease : :Ordering Physician: CASTILLO, : :SHANELL Performed By: Jana Howell : :Referring: SHANELL CHONG : + + Interpretation Summary Left ventricular ejection fraction is estimated to be 60%. The right ventricle is mildly dilated. The right ventricular systolic function is normal. The right ventricular systolic pressure is estimated to be at least 25 mmHg based on an estimated right atrial pressure of 3 mm Hg. Procedure: A two-dimensional transthoracic echocardiogram with color flow and Doppler was performed. The study quality was technically adequate. Comparison is made with the echocardiogram of 09/20/2019. The patient was in normal sinus rhythm during the exam. Left Ventricle: The left ventricle is normal in size. Left ventricular ejection fraction is estimated to be 60%. There has been no significant change since the previous exam. Left ventricular wall motion is normal. Diastolic parameters suggest a relaxation abnormality of the left ventricle, consistent with probable normal filling pressures. Right Ventricle: The right ventricle is mildly dilated. The right ventricular systolic function is normal. Atria: The left atrial size is normal. Right atrial size is normal. There is no Doppler evidence for an interatrial shunt. Mitral Valve: The mitral valve leaflets are mildly calcified. There is no mitral valve stenosis. There is trace mitral regurgitation. Aortic Valve: The aortic valve is trileaflet. The aortic valve opens well. The aortic valve is slightly calcified. There is no aortic valve stenosis. No aortic regurgitation is present. Tricuspid Valve: The tricuspid valve is not well visualized. There is no tricuspid stenosis. There is trace tricuspid regurgitation. The right ventricular systolic pressure is estimated to be at least 25 mmHg based on an estimated right atrial pressure of 3 mm Hg. Pulmonic Valve: The pulmonic valve is not well visualized. There is no pulmonic valvular stenosis. There is trace pulmonic regurgitation. Great Vessels: The aortic root is normal size. The ascending aorta is normal in size. The pulmonary artery is normal size. The IVC is of normal diameter and collapses greater than 50% with a sniff. This suggests a low right atrial pressure of 3 mm Hg. Pericardium/ Pleura There is no pericardial effusion. There is no pleural effusion. MMode/2D Measurements & Calculations LVIDd: 4.9 cm LVOT diam: 2.1 cm LVIDs: 2.6 cm Ao root diam: 3.2 cm FS: 46.9 % asc Aorta Diam: 3.2 cm IVSd: 1.1 cm LVPWd: 0.90 cm LV boles. diameter/BSA (cm/m^2): 2.3 LV sys. diameter/BSA (cm/m^2): 1.2 LA A2 area: 20.1 cm2 RA long axis: 5.2 cm LA A4 area: 16.6 cm2 RA area: 16.3 cm2 LA length (vol): 5.0 cm RA vol: 43.1 ml LA vol: 57.2 ml RA : 20.2 ml/m2 LA vol index: 26.8 ml/m2 RVD1 (basal): 4.2 cm LVLs ap4: 6.4 cm LVLd ap2: 7.4 cm TAPSE_phl: 2.7 cm LVLs ap2: 6.3 cm Doppler Measurements & Calculations Ao V2 max: 151.5 cm/sec LVOT Max Randall: 118.5 cm/sec Ao V2 mean: 104.5 cm/sec LV V1 max P.6 mmHg Ao max P.0 mmHg LV V1 VTI: 30.7 cm Ao mean P.0 mmHg MONIQUE(I,D): 3.0 cm2 Ao V2 VTI: 35.2 cm MONIQUE(V,D): 2.7 cm2 sev ratio: 0.87 MONIQUE indexed to BSA (cm^2/m^2): 1.4 MV E max randall: 90.8 cm/sec TR max randall: 236.0 cm/sec MV A max randall: 107.0 cm/sec TR max P.3 mmHg MV E/A: 0.85 PA V2 max: 80.4 cm/sec Med Peak E' Randall: 5.7 cm/sec PA V2 mean: 56.5 cm/sec E/E' med: 16.0 PA mean P.0 mmHg Lat Peak E' Randall: 9.6 cm/sec PA pr(Accel): 24.6 mmHg E/E' lat: 9.5 E/e' average: 12.7 MV dec time: 0.28 sec SV(LVOT): 106.3 ml AV VR_phl: 0.78 MONIQUE(VTI)/BSA_phl: 1.4 Reading Physician:03:04 PM
== END ==
PROVIDERS: Family Provider Student in an Organized Health Care Education/Training Program; PCP Family Medicine; Visit Provider Nurse Practitioner Family
DX: I65.21 Occlusion and stenosis of right carotid artery (principal); I25.10 Atherosclerotic heart disease of native coronary artery without angina pectoris; R09.89 Other specified symptoms and signs involving the circulatory and respiratory systems; Z95.820 Peripheral vascular angioplasty status with implants and grafts
CPT/HCPCS: 93306; 93880

== ENCOUNTER → 2024-04-18 10:20 | Outpatient (CLI) | payer OTHER, SELFPAY ==
[2020-08-20 12:19] VITALS: BMI 26.5
[2024-04-18 11:04] LABS: Add Manual Diff / Slide Review NO; Basophils Absolute Auto 0 /uL (0-100); Basophils Percent Auto 0.7 % (0-2); Eosinophils Absolute Auto 300 /uL (0-450); Eosinophils Percent Auto 5.4 % (2-4); Hematocrit 41.9 % (41-53); Lymphocytes Absolute Auto 1700 /uL (1100-4500); Lymphocytes Percent Auto 30.1 % (25-40); Mean Corpuscular HGB Conc 33.4 % (30-36); Mean Corpuscular Hemoglobin 29.7 PG (26-34); Mean Corpuscular Volume 88.8 fL (80-100); Monocytes Absolute Auto 400 /uL (0-900); Neutrophils Absolute Auto 3300 /uL (1500-7000); Neutrophils Percent Auto 56.8 % (50-75); Platelet Count 174 X10^3/uL (150-400); Red Blood Cell Count 4.72 X10^6/uL (4.5-5.9); Red Cell Distribution Width 14.1 % (11.6-14.8); White Blood Cell Count 5.8 X10^3/uL (4.5-11.0)
[2024-04-18 11:35] LABS: Magnesium 2.2 mg/dL (1.6-2.3)
[2024-04-18 11:36] LABS: Alanine Aminotransferase 27 IU/L (<50); Albumin Globulin Ratio 1.5 (1.0-2.8); Alkaline Phosphatase 53 U/L (38-126); Aspartate Aminotransferase 27 IU/L (17-59); BUN Creatinine Ratio 13.7 (6-22); Bilirubin Total 0.7 mg/dL (0.2-1.3); Blood Urea Nitrogen 14 mg/dL (9-20); Carbon Dioxide 27 mmol/L (22-32); Chloride 108 mmol/L (98-107); Cholesterol 129 mg/dL (140-199); Estimated Glomerular Filt Rate > 60 mL/min (>60); Globulin 2.7 g/dL (1.7-4.1); Glucose 103 mg/dL (80-110); HDL Cholesterol 42 mg/dL (40-60); HEMOLYSIS < 15 (0-50); LDL Cholesterol Calculated 63 mg/dL (<100); Potassium 4.1 mmol/L (3.4-5.1); Sodium 140 mmol/L (137-145); Total Protein 6.7 g/dL (6.3-8.2); Triglycerides 118 mg/dL (35-150)
[2024-04-18 11:58] LABS: Prostate Specific Antigen Scrn 2.74 ng/mL (0.1-4.0)
== END ==
PROVIDERS: Family Provider Student in an Organized Health Care Education/Training Program; PCP Family Medicine; Visit Provider Nurse Practitioner Family
DX: Z12.5 Encounter for screening for malignant neoplasm of prostate (principal); I25.10 Atherosclerotic heart disease of native coronary artery without angina pectoris; I10 Essential (primary) hypertension; K21.9 Gastro-esophageal reflux disease without esophagitis; E78.00 Pure hypercholesterolemia, unspecified; Z95.820 Peripheral vascular angioplasty status with implants and grafts
CPT/HCPCS: 36415; 80053; 80061; 83735; 85025; G0103

== ENCOUNTER 2024-05-02 08:21 | Day surgery (SDC) | payer OTHER, SELFPAY ==
[2020-08-20 12:19] VITALS: BMI 26.5
--- NOTE | 2024-05-02 | PATH_ITS ---
[facility] Accession Number: [id number] No. of containers..01 Tissue . 01 Material submitted: . colon - ASCENDING POLYP . 01 Diagnosis: COLON, ASCENDING, POLYP BIOPSY: Tubular adenoma. TXN 05/05/2024 1531 Local . 01 Electronically signed: . Rose Moreno MD, Pathologist NPI- [id number] . 01 Gross description: . Received in formalin with two patient identifiers and ascending colon polyp, is a single reddy soft tissue fragment, 0.3 cm in greatest dimension. Submitted in A1. ([id number]) /MRV 05/04/2024 1726 Local . 01 Pathologist provided ICD-10: D12.6 . 01 CPT . 278864 Specimen Comment: A courtesy copy of this report has been sent to [phone] Performed at: [address] [id number] MD Jono Singletary MD Phone: [phone]
[2024-05-02] MEDS: LACTATED RINGERS 1,000 ML 42 ML IV (08:42)
[2024-05-02 08:52] VITALS: BP 161/89; PULSE 65; RESP 20; TEMP 36.6; O2SAT 97
--- NOTE | 2024-05-02 09:23 | P.HP_ITS ---
History of Present Illness History of Present Illness Date Patient Seen: 05/02/24 Time Patient Seen: : Chief complaint: Screening Colonoscopy Narrative: 73-year-old man here for screening colonoscopy. Last colonoscopy 2013 normal. No family history of colon cancer. No abdominal concerns today. [facility] Medical History Medicare annual wellness visit, subsequent Well adult exam Myocardial infarction Colon polyps Coronary artery disease Chronic low back pain Insomnia ADHD (attention deficit hyperactivity disorder) Hyperlipidemia Hypertension Cluster headaches Basal cell carcinoma Surgical History Status post arterial stent History of cardiac cath Hx of colonoscopy with polypectomy (06/2014) Hx of coronary angioplasty Hx of heart artery stent History of vasectomy (1993) Family History Father Diabetes mellitus Social History household members: none Smoking Status: Never smoker alcohol intake: current substance use type: does not use Meds Home Medications and Allergies Home Medications Medication Instructions Recorded Confirmed Type nitroglycerin 0.4 mg sublingual 0.4 mg sublingual Q5-15M PRN Chest 12/27/18 05/02/24 History tablet Pain aspirin 81 mg tablet,delayed 81 mg PO DAILY 02/14/19 05/02/24 History release (Adult Aspirin Regimen) clopidogrel 75 mg tablet (Plavix) 75 mg PO DAILY 03/23/19 05/01/24 History acetaminophen 325 mg capsule 650 mg (2 x 325 mg) PO QID PRN 08/29/19 05/02/24 Rx (Tylenol) pain #60 caps metoprolol succinate 50 mg 75 mg PO BID 09/19/19 05/02/24 History tablet,extended release 24 hr amlodipine 2.5 mg tablet 2.5 mg PO DAILY 08/21/20 05/02/24 History lisinopril 5 mg tablet 5 mg PO DAILY 08/21/20 05/02/24 History omeprazole 20 mg capsule,delayed 20 mg PO DAILY 09/01/22 05/02/24 History release ranolazine 1,000 mg 1,000 mg PO BID Heart 05/18/23 05/02/24 History tablet,extended release,12 hr hydroxyzine HCl 25 mg tablet 25 mg PO BEDTIME #30 tabs 08/24/23 05/02/24 Rx tamsulosin 0.4 mg capsule 0.4 mg PO BEDTIME #90 caps 11/01/23 11/01/23 Rx trazodone 50 mg tablet 50 mg PO BEDTIME PRN insomnia #90 11/01/23 05/02/24 Rx tabs zolpidem 10 mg tablet 10 mg PO BEDTIME PRN insomnia #30 12/28/23 05/02/24 Rx tabs tamsulosin 0.4 mg capsule 0.4 mg PO BEDTIME #90 caps 04/18/24 05/02/24 Rx isosorbide mononitrate 30 mg 30 mg PO DAILY 05/02/24 05/02/24 History tablet,extended release 24 hr Allergies Allergy/AdvReac Type Severity Reaction Status Date / Time No Known Drug Allergies Allergy Verified 05/02/24 08:43 Exam Vital Signs (past 8 hours): - 05/02/24 08:52 Temperature 97.9 F Pulse Rate 65 Respiratory Rate 20 Blood Pressure 161/89 H Pulse Oximetry 97 Oxygen Delivery Method Room Air Oxygen Delivery Method Room Air Narrative Exam Narrative: General adult man alert oriented no acute distress Chest nonlabored respiration Extremities warm well perfused Assessment & Plan Assessment & Plan narrative: The patient requires colorectal screening and colonoscopy is recommended. Technical details were discussed. Risks, benefits, alternatives explained. Risks including but not limited to myocardial infarction, aspiration, bleeding, pain, missed lesion, incomplete examination, need for further radiographic studies, intestinal injury, and need for major abdominal surgery were discussed. All questions were answered to their satisfaction, and they are in agreement with this plan. Time-Based Coding :: [TOTAL MINUTES] spent with patient and on the chart (including review of chart, obtaining history, exam, reviewing outside data, placing orders, documenting exam and treatment plan, and counseling patient) on [DATE].
[2024-05-02 09:55] VITALS: BP 114/65; PULSE 64; RESP 18; TEMP 37.1; O2SAT 95
[2024-05-02 09:56] VITALS: BP 108/69; PULSE 63; RESP 16; O2SAT 93
--- NOTE | 2024-05-02 09:56 | P.OP.COLON_ITS ---
Operative Date/Time/Diagnoses Date of procedure: 05/02/24 Time of procedure: 09:56 Pre-op diagnosis: Colorectal screening Post-op diagnosis: other (Colonic polyp x1) Procedure & Clinicians Study performed: Screening colonoscopy Same procedure as scheduled: Yes Indications: Colorectal screening Surgeon: Samy Corona Procedure Notes Procedure in detail: The history and physical was performed/updated and the patient is ASA class is 2. The procedure was discussed in detail with the patient. Potential risks complications including infection, bleeding, missed diagnosis, perforation, need for surgery, and were explained. Their questions were answered and informed consent was obtained. Patient was brought to the procedure room and placed standard monitoring equipment. The patient's vital signs were monitored continuously throughout the entire procedure. Prior to starting time-out was performed. The patient was placed in the left lateral recumbent position. Procedural sedation was administered by anesthesia. Examination began with a thorough inspection of the perianal area there was no evidence of fissures, fistulae, external hemorrhoids or cutaneous malignancy. The colonoscopy scope was then placed into the anal ca nal and was advanced to the cecum, which was identified by the ileocecal valve, the appendiceal orifice and the confluence of the taenia. The scope was then slowly withdrawn examining colon thoroughly in all directions, irrigating it of any residual stool. The scope was retroflexed within the rectum The patient tolerated the procedure well. They will be discharged once criteria are met. The prep was of good/excellent quality. The withdrawl time was 7 minutes. FINDINGS * Ascending colon-3 mm polyp removed with Jumbo forceps Specimen(s): other (Ascending colon polyp) Impression: Colonic polyp x1 Post-procedure Plan for aftercare: Follow-up is dependent on pathology findings likely 5 years Disposition: same day surgery
[2024-05-02 10:02] VITALS: BP 127/77; PULSE 65; RESP 18; TEMP 36.8; O2SAT 93
== END 2024-05-02 10:18 | disposition home or self-care (01) ==
PROVIDERS: Family Provider Student in an Organized Health Care Education/Training Program; PCP Family Medicine; Referring Provider Surgery; Visit Provider Surgery
PROC: 0DJD8ZZ Inspection of Lower Intestinal Tract, Via Natural or Artificial Opening Endoscopic (ICD-10-PCS; CPT 45378; principal; 2024-05-02 09:15)
DX: Z12.11 Encounter for screening for malignant neoplasm of colon (principal); D12.2 Benign neoplasm of ascending colon
CPT/HCPCS: 45380; J2704

== ENCOUNTER → 2024-11-13 13:44 | Outpatient (CLI) | payer OTHER, SELFPAY ==
[2020-08-20 12:19] VITALS: BMI 26.5
[2024-11-13 14:28] LABS: Alanine Aminotransferase 45 IU/L (<50); Albumin 4.5 g/dL (3.5-5.0); Albumin Globulin Ratio 1.8 (1.0-2.8); Alkaline Phosphatase 54 U/L (38-126); Aspartate Aminotransferase 32 IU/L (17-59); BUN Creatinine Ratio 13.1 (6-22); Bilirubin Total 0.9 mg/dL (0.2-1.3); Blood Urea Nitrogen 14 mg/dL (9-20); Calcium 9.3 mg/dL (8.4-10.2); Carbon Dioxide 28 mmol/L (22-32); Chloride 105 mmol/L (98-107); Estimated Glomerular Filt Rate > 60 mL/min (>60); Globulin 2.5 g/dL (1.7-4.1); Glucose 97 mg/dL (80-110); HEMOLYSIS < 15 (0-50); Potassium 4.4 mmol/L (3.4-5.1); Sodium 137 mmol/L (137-145)
== END ==
PROVIDERS: Family Provider Student in an Organized Health Care Education/Training Program; PCP Family Medicine; Referring Provider Family Medicine; Visit Provider Family Medicine
DX: E78.00 Pure hypercholesterolemia, unspecified (principal); I10 Essential (primary) hypertension
CPT/HCPCS: 36415; 80053

== ENCOUNTER 2024-12-12 12:58 | Observation (INO) | payer OTHER, SELFPAY ==
[2020-08-20 12:19] VITALS: BMI 26.5
[2024-12-12] VITALS (15 sets, daily range): BP systolic 123–155; BP diastolic 68–97; PULSE 54–96; RESP 12–23; TEMP 36.4–36.8; O2SAT 95–100; BMI 31.5
--- NOTE | 2024-12-12 13:10 | EKG_ITS ---
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
--- NOTE | 2024-12-12 13:10 | DI.RAD.S_ITS ---
PROCEDURE: XR CHEST 1V INDICATIONS: Possible stroke TECHNIQUE: One view of the chest was acquired. COMPARISON: [facility], CR, XR CHEST 1V, 08/16/2020, 16:48. [facility], CR, XR CHEST 1V, 09/19/2019, 13:10. FINDINGS: Surgical changes and devices: None. Lungs and pleura: Lungs are clear. No pleural effusions or pneumothorax. Mediastinum: Mediastinal contours appear normal. Heart size is normal. Bones and chest wall: No suspicious bony lesions. Overlying soft tissues appear unremarkable. IMPRESSION: No acute cardiopulmonary abnormality is seen. Dictated by: Juan Reed M.D. on 12/12/2024 at 14:14 Approved by: Juan Reed M.D. on 12/12/2024 at 14:17
--- NOTE | 2024-12-12 13:10 | DI.CT.S_ITS ---
PROCEDURE: CT STROKE INDICATIONS: Positive BE-FAST, Stroke symptoms, right sided TECHNIQUE: Noncontrast 4.5 mm thick angled axial sections acquired from the foramen magnum to the vertex, with coronal reformats. For radiation dose reduction, the following was used: automated exposure control, adjustment of mA and/or kV according to patient size. COMPARISON: None. FINDINGS: Image quality: Diagnostic. CSF spaces: Basal cisterns are patent. No extra-axial fluid collections. The ventricles are symmetric in size and shape. Brain: No intracranial bleeds or masses. There is cerebral volume loss for age, with resultant ventricular and sulcal prominence. There are periventricular and deep white matter chronic small vessel ischemic changes. There is a dense calcification immediately above the right lateral ventricle with a cylindrical or ovoid appearance measuring 1.0 x 1.0 x 2.7 cm, consistent with calcification related to previous hemorrhage or infarct. No acute infarct identified. There is intracranial internal carotid artery atherosclerosis. Skull and face: Calvarium and visualized facial bones appear intact, without suspicious lesions. Sinuses: Visualized sinuses and mastoids are clear. IMPRESSION: Prominent sizable calcification in the deep white matter superior to the right lateral ventricle likely represents calcification related to remote hemorrhage or infarct. No acute intracranial process. Comment: Findings were discussed with Dr. Palencia on 12/12/2024 at 1342 hours This study fulfills neurological imaging criteria for inclusion or exclusion of acute stroke therapies based on available published neurological guidelines. Dictated by: Mario Patrick M.D. on 12/12/2024 at 13:38 Approved by: Mario Patrick M.D. on 12/12/2024 at 13:43
--- NOTE | 2024-12-12 13:14 | DI.CT.S_ITS ---
PROCEDURE: CT ANGIO HEAD AND NECK INDICATIONS: neuro symptoms/right side weakness TECHNIQUE: After the administration of intravenous contrast, 1 mm thick sections acquired from the aortic arch through the [place] of [place]. 3-dimensional jswiuvj-fiwetvcne-mhiygzpzob (MIP) and/or volume rendering reformats were acquired of the central intracranial vasculature and neck separately. For radiation dose reduction, the following was used: automated exposure control, adjustment of mA and/or kV according to patient size. COMPARISON: None. FINDINGS: Image quality: Diagnostic. BRAIN: Please refer to same day CT of the head. HEAD CT ANGIOGRAPHY: Anterior circulation: Intracranial internal carotid arteries demonstrates significant calcifications with areas of at least moderate stenosis bilaterally. The flow within the paired anterior cerebral arteries is normal and symmetric. The flow within the middle cerebral arteries is normal and symmetric. The anterior communicating artery is seen. No aneurysms are seen. Posterior circulation: Significant atherosclerotic calcifications of the dominant right vertebral artery with areas of moderate stenosis. The left V4 segment of the vertebral artery is not identified, chronically occluded versus congenitally absent. Areas of moderate stenosis throughout the basilar artery. 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 No aneurysms are seen. NECK CT ANGIOGRAPHY: Carotid system: The great vessels demonstrate a conventional anatomy as they arise from the aortic arch. The origins of the common carotid arteries appear patent. The common carotid arteries demonstrate normal caliber and courses. The bifurcation regions demonstrate significant atherosclerotic calcifications with high-grade stenosis on the right, greater than 70 percent and moderate stenosis on the left, 50-69 percent. The more distal internal carotid arteries demonstrate normal calibers and courses. Posterior circulation: The origins of the vertebral arteries both appear widely patent. The more superior extracranial portions of both vertebral arteries also demonstrate normal courses and calibers. They join to form a normal appearing basilar artery. Soft tissues: Visualized neck soft tissues demonstrate no suspicious abnormalities. Bones: No suspicious bony lesions. Visualized cervical spine appears normally aligned. Multilevel degenerative changes of the cervical spine. IMPRESSION: High-grade stenosis versus with areas of near complete inclusion involving the left TAP OUT OPERATOR, most pronounced in the P1 and P2 segments. Thrombus is not excluded. Discussed with Dr. Palencia at the time of dictation. Significant calcifications throughout the intracranial internal carotid arteries with areas of at least moderate stenosis bilaterally. Atherosclerotic calcifications throughout the right intracranial vertebral artery and basilar artery with areas of moderate stenosis. The left V4 segment of the vertebral artery is not seen and may be chronically thrombosed. High-grade stenosis of the right carotid bifurcation/proximal ICA with greater than 70 percent stenosis. Moderate stenosis on the left with approximately 50-69 percent stenosis. MRI is recommended for further evaluation. Any quantitative measurements of stenosis were performed using NASCET criteria. Dictated by: Juan Reed M.D. on 12/12/2024 at 14:23 Approved by: Juan Reed M.D. on 12/12/2024 at 14:38
[2024-12-12 13:37] LABS: Add Manual Diff / Slide Review NO; Basophils Absolute Auto 100 /uL (0-100); Basophils Percent Auto 1.2 % (0-2); Eosinophils Absolute Auto 100 /uL (0-450); Eosinophils Percent Auto 2.8 % (2-4); Hemoglobin 14.2 g/dL (13.5-17.5); Lymphocytes Absolute Auto 1200 /uL (1100-4500); Lymphocytes Percent Auto 25.4 % (25-40); Mean Corpuscular HGB Conc 33.7 % (30-36); Mean Corpuscular Hemoglobin 29.8 PG (26-34); Mean Corpuscular Volume 88.6 fL (80-100); Monocytes Absolute Auto 400 /uL (0-900); Monocytes Percent Auto 7.7 % (3-14); Neutrophils Absolute Auto 3000 /uL (1500-7000); Neutrophils Percent Auto 62.9 % (50-75); Platelet Count 170 X10^3/uL (150-400); Red Blood Cell Count 4.74 X10^6/uL (4.5-5.9); Red Cell Distribution Width 14.1 % (11.6-14.8); White Blood Cell Count 4.8 X10^3/uL (4.5-11.0)
[2024-12-12 13:46] LABS: Prothrombin Time 11.8 SECONDS (9.4-12.5)
[2024-12-12 13:48] LABS: PTT Partial Thromboplastin Tim 35 SECONDS (25.1-36.5)
[2024-12-12 13:56] LABS: Alanine Aminotransferase 38 IU/L (<50); Albumin 4.2 g/dL (3.5-5.0); Albumin Globulin Ratio 1.6 (1.0-2.8); Alkaline Phosphatase 54 U/L (38-126); Aspartate Aminotransferase 32 IU/L (17-59); BUN Creatinine Ratio 13.3 (6-22); Bilirubin Total 0.7 mg/dL (0.2-1.3); Blood Urea Nitrogen 13 mg/dL (9-20); Calcium 9.1 mg/dL (8.4-10.2); Carbon Dioxide 23 mmol/L (22-32); Chloride 107 mmol/L (98-107); Creatine Kinase 124 U/L (55-170); Estimated Glomerular Filt Rate > 60 mL/min (>60); Globulin 2.6 g/dL (1.7-4.1); Glucose 132 mg/dL (80-110); HEMOLYSIS < 15 (0-50); Magnesium 2.1 mg/dL (1.6-2.3); Potassium 3.8 mmol/L (3.4-5.1); Sodium 139 mmol/L (137-145); Total Protein 6.8 g/dL (6.3-8.2)
[2024-12-12 14:09] LABS: Troponin I < 0.012 ng/mL (0.01-0.034)
--- NOTE | 2024-12-12 14:37 | ED_ITS ---
HPI - Neuro Symptoms/Deficit General Chief Complaint: Neuro Symptoms/Deficit Stated Complaint: Per patient, Mini stoke or food poisoning Time Seen by Provider: 12/12/24 14:33 Source: patient Mode of arrival: Ambulatory History of Present Illness HPI Narrative: Patient is a 74-year-old male history of coronary artery disease with 4 stents presenting to day with some right-sided weakness and numbness. He reports he started having some symptoms last night. This morning he had difficulty ambulating cut his right leg was so weak he also reports that he was dropping things with his right hand although some of that has been improved. He denies any visual changes or loss. Reports that he does take aspirin and Plavix he takes Plavix at night and took aspirin 81 mg this morning. On Anticoagulants: Yes (Clopidogrel) Related Data Home Medications Medication Instructions Recorded Confirmed nitroglycerin 0.4 mg sublingual 0.4 mg sublingual Q5-15M PRN Chest 12/27/18 11/13/24 tablet Pain aspirin 81 mg tablet,delayed 81 mg PO DAILY 02/14/19 11/13/24 release (Adult Aspirin Regimen) clopidogrel 75 mg tablet (Plavix) 75 mg PO DAILY 03/23/19 11/13/24 metoprolol succinate 50 mg 75 mg PO BID 09/19/19 11/13/24 tablet,extended release 24 hr amlodipine 2.5 mg tablet 2.5 mg PO DAILY 08/21/20 11/13/24 lisinopril 5 mg tablet 5 mg PO DAILY 08/21/20 11/13/24 omeprazole 20 mg capsule,delayed 20 mg PO DAILY 09/01/22 11/13/24 release ranolazine 1,000 mg 1,000 mg PO BID Heart 05/18/23 11/13/24 tablet,extended release,12 hr isosorbide mononitrate 30 mg 30 mg PO DAILY 05/02/24 11/13/24 tablet,extended release 24 hr Previous Rx's Medication Instructions Recorded acetaminophen 325 mg capsule 650 mg (2 x 325 mg) PO QID PRN 08/29/19 (Tylenol) pain #60 caps hydroxyzine HCl 25 mg tablet 25 mg PO BEDTIME #30 tabs 08/24/23 trazodone 50 mg tablet 50 mg PO BEDTIME PRN insomnia #90 05/13/24 tabs tamsulosin 0.4 mg capsule 0.4 mg PO BEDTIME #90 caps 10/16/24 zolpidem 10 mg tablet 10 mg PO BEDTIME PRN insomnia #30 11/02/24 tabs Allergies Allergy/AdvReac Type Severity Reaction Status Date / Time No Known Drug Allergies Allergy Verified 11/13/24 13:07 Review of Systems Hematologic/Lymphatic On Anticoagulants: Yes (Clopidogrel) Patient History Medical History BPH (benign prostatic hyperplasia) Medicare annual wellness visit, subsequent Well adult exam Myocardial infarction Colon polyps Coronary artery disease Chronic low back pain Insomnia ADHD (attention deficit hyperactivity disorder) Hyperlipidemia Hypertension Cluster headaches Basal cell carcinoma Surgical History Status post arterial stent History of cardiac cath Hx of colonoscopy with polypectomy (06/2014) Hx of coronary angioplasty Hx of heart artery stent History of vasectomy (1993) Family History Father Diabetes mellitus Social History household members: none Smoking Status: Never smoker alcohol intake: current substance use type: does not use Smoking Status: Never smoker alcohol intake frequency: holidays/special occasions only Exam Initial Vital Signs Initial Vital Signs: Vital Signs Temperature 98.2 F 12/12/24 13:04 Pulse Rate 68 12/12/24 13:04 Respiratory Rate 18 12/12/24 13:04 Blood Pressure 138/97 H 12/12/24 13:04 Pulse Oximetry 95 12/12/24 13:04 Oxygen Delivery Method Room Air 12/12/24 13:04 GENERAL: Alert 74-year-old male and in no acute distress. HEENT: Head atraumatic,EOMI, pupils reactive, face symmetric, moist mucous membranes CARDIOVASCULAR: Regular rate and rhythm without murmurs, rubs or gallops. RESPIRATORY: Breath sounds equal bilaterally, no wheezes rales or rhonchi. ABDOMEN: Soft, nontender. Normoactive bowel sounds all 4 quadrants. No guarding or rebound. EXTREMITIES: Normal range of motion, no clubbing or edema. Neurovascularly intact NEUROLOGICAL: Alert and oriented x4.Normal gait and speech. Cranial nerves II through XII grossly intact. Right leg does drift to bed also some mild ataxia in the right lower extremity decreased sensation in the right arm no facial droop no peripheral visual SKIN: Warm, dry, no laceration, no petechiae, no rashes or lesions. Scores NIH Stroke Scale Level of Conciousness: Alert, keenly responsive Ask month/age: Answers both questions correctly. Open/close eyes, close hand: Performs both tasks correctly Best gaze horizontal: Normal Visual novak: No visual loss Facial palsy: Normal symetrical movement Left arm drift: No drift for full 10 sec Right arm drift: No drift for full 10 sec Left leg drift: No drift for full 5 sec Right leg drift: Drifts down, not to bed Limb ataxia: Present in one limb Sensory on face/arms/legs: Mild to moderate sensory loss, can tell touch Best language: No aphasia, normal Dysarthria: Normal Extinction or inattention: No abnormality Total NIH Stroke scale score: 3 Course Orders Ordered: ED Orders 12/12/24 13:10 CT Stroke Stat XR chest 1V Stat Urine Drug Screen, Rapid Stat EKG-12 Lead Stat 12/12/24 13:14 CT angio head and neck Stat 12/12/24 13:21 Complete Blood Count AUTO DIFF Stat Comprehensive Metabolic Panel Stat Magnesium Stat PTT Partial Thromboplastin Andrea Stat Prothrombin Time INR Stat Troponin & CK Cardiac Panel Stat 12/12/24 14:55 MR head/brain wo con Stat Acetaminophen (Acetaminophen 325 Mg Tablet) 650 mg PO Q6H PRN PRN Reason: Fever/Mild Pain (1-3) Al Hydrox/Mg Hydrox/Simethicone (Mag Hydrox/Alum/Simeth 30 Ml Udc) 30 ml PO Q6HR PRN PRN Reason: Dyspepsia Atorvastatin Calcium (Atorvastatin 20 Mg Tablet) 80 mg PO BEDTIME [facility] Clopidogrel Bisulfate (Clopidogrel 75 Mg Tablet) 75 mg PO DAILY [facility] Heparin Sodium (Porcine) (Heparin 5,000 Unit/Ml Vial) 5,000 unit SUBCUT BID [facility] Naloxone HCl (Naloxone 0.4 Mg/Ml Vial) 0.2 mg IV Q2MIN PRN PRN Reason: Opiate Reversal Ondansetron HCl (Ondansetron 4 Mg/2 Ml Inj) 4 mg IV NOW PRN PRN Reason: Nausea And Vomiting Ondansetron HCl (Ondansetron 4 Mg Odt) 4 mg SL NOW PRN PRN Reason: Nausea And Vomiting Ondansetron HCl (Ondansetron 4 Mg/2 Ml Inj) 4 mg IV Q8HR PRN PRN Reason: Nausea And Vomiting Discontinued Medications Aspirin (Aspirin 81 Mg Chew Tab) 244 mg PO NOW ONE Stop: 12/12/24 16:17 Last Admin: 12/12/24 16:33 Dose: 244 mg Documented By: ABE Aspirin (Aspirin 81 Mg Chew Tab) 324 mg PO NOW ONE Stop: 12/12/24 17:14 Atorvastatin Calcium (Atorvastatin 20 Mg Tablet) 80 mg PO NOW ONE Stop: 12/12/24 16:17 Last Admin: 12/12/24 16:31 Dose: 80 mg Documented By: ABE Clopidogrel Bisulfate (Clopidogrel 75 Mg Tablet) 75 mg PO NOW ONE Stop: 12/12/24 16:17 Last Admin: 12/12/24 16:31 Dose: 75 mg Documented By: ABE Vital Signs Vital signs: Vital Signs - 8 hr 12/12/24 13:04 12/12/24 14:35 12/12/24 14:37 Temperature 98.2 F Pulse Rate 68 59 L Respiratory Rate 18 16 Blood Pressure 138/97 H Pulse Oximetry 95 100 97 Oxygen Delivery Method Room Air 12/12/24 14:37 12/12/24 15:00 12/12/24 15:01 Temperature Pulse Rate 64 91 H Respiratory Rate 18 16 Blood Pressure 153/77 H Pulse Oximetry 97 97 Oxygen Delivery Method 12/12/24 15:01 12/12/24 15:32 12/12/24 15:34 Temperature Pulse Rate 65 60 Respiratory Rate 15 Blood Pressure 148/92 H Pulse Oximetry 98 99 Oxygen Delivery Method 12/12/24 15:34 12/12/24 16:00 12/12/24 16:00 Temperature Pulse Rate 60 Respiratory Rate 12 Blood Pressure 155/77 H 136/74 Pulse Oximetry 97 Oxygen Delivery Method 12/12/24 16:30 12/12/24 16:30 Temperature Pulse Rate 60 Respiratory Rate 12 Blood Pressure 152/77 H Pulse Oximetry 97 Oxygen Delivery Method MDM - Neuro Symptoms/Deficit Lab Data 12/12/24 13:21 12/12/24 13:21 Labs: Lab Results 12/12/24 Range/Units 13:21 WBC 4.8 (4.5-11.0) X10^3/uL RBC 4.74 (4.5-5.9) X10^6/uL Hgb 14.2 (13.5-17.5) g/dL Hct 42.0 (41-53) % MCV 88.6 (80-100) fL MCH 29.8 (26-34) PG MCHC 33.7 (30-36) % RDW 14.1 (11.6-14.8) % Plt Count 170 (150-400) X10^3/uL Neut % (Auto) 62.9 (50-75) % Lymph % (Auto) 25.4 (25-40) % [place] % (Auto) 7.7 (3-14) % Eos % (Auto) 2.8 (2-4) % Baso % (Auto) 1.2 (0-2) % Neut # (Auto) 3000 (4144-1555) /uL Lymph # (Auto) 1200 (0488-9566) /uL [place] # (Auto) 400 (0-900) /uL Eos # (Auto) 100 (0-450) /uL Baso # (Auto) 100 (0-100) /uL PT 11.8 (9.4-12.5) SECONDS INR 1.0 (0.9-1.3) APTT 35 (25.1-36.5) SECONDS Sodium 139 (137-145) mmol/L Potassium 3.8 (3.4-5.1) mmol/L Chloride 107 (98-107) mmol/L Carbon Dioxide 23 (22-32) mmol/L BUN 13 (9-20) mg/dL Creatinine 0.98 (0.66-1.25) mg/dL Estimated GFR > 60 (>60) mL/min BUN/Creatinine Ratio 13.3 (6-22) Glucose 132 H (80-110) mg/dL Calcium 9.1 (8.4-10.2) mg/dL Magnesium 2.1 (1.6-2.3) mg/dL Total Bilirubin 0.7 (0.2-1.3) mg/dL AST 32 (17-59) IU/L ALT 38 (<50) IU/L Alkaline Phosphatase 54 (38-126) U/L Total Creatine Kinase 124 (55-170) U/L Troponin I < 0.012 (0.01-0.034) ng/mL Total Protein 6.8 (6.3-8.2) g/dL Albumin 4.2 (3.5-5.0) g/dL Globulin 2.6 (1.7-4.1) g/dL Albumin/Globulin Ratio 1.6 (1.0-2.8) Point of Care Testing Glucose POC [address] scan - head: Radiologist's Impression: PROCEDURE: CT STROKE INDICATIONS: Positive BE-FAST, Stroke symptoms, right sided TECHNIQUE: Noncontrast 4.5 mm thick angled axial sections acquired from the foramen magnum to the vertex, with coronal reformats. For radiation dose reduction, the following was used: automated exposure control, adjustment of mA and/or kV according to patient size. COMPARISON: None. FINDINGS: Image quality: Diagnostic. CSF spaces: Basal cisterns are patent. No extra-axial fluid collections. The ventricles are symmetric in size and shape. Brain: No intracranial bleeds or masses. There is cerebral volume loss for age, with resultant ventricular and sulcal prominence. There are periventricular and deep white matter chronic small vessel ischemic changes. There is a dense calcification immediately above the right lateral ventricle with a cylindrical or ovoid appearance measuring 1.0 x 1.0 x 2.7 cm, consistent with calcification related to previous hemorrhage or infarct. No acute infarct identified. There is intracranial internal carotid artery atherosclerosis. Skull and face: Calvarium and visualized facial bones appear intact, without suspicious lesions. Sinuses: Visualized sinuses and mastoids are clear. IMPRESSION: Prominent sizable calcification in the deep white matter superior to the right lateral ventricle likely represents calcification related to remote hemorrhage or infarct. No acute intracranial process. Comment: Findings were discussed with Dr. Palencia on 12/12/2024 at 1342 hours This study fulfills neurological imaging criteria for inclusion or exclusion of acute stroke therapies based on available published neurological guidelines. Dictated by: Mario Patrick M.D. on 12/12/2024 at 13:38 Approved by: Mario Patrick M.D. on 12/12/2024 at 13:43 CTA - brain/neck: Radiologist's Impression: PROCEDURE: CT ANGIO HEAD AND NECK INDICATIONS: neuro symptoms/right side weakness TECHNIQUE: After the administration of intravenous contrast, 1 mm thick sections acquired from the aortic arch through the [place]. 3-dimensional rxcicgw-mogxyhrps-azjkmppuhv (MIP) and/or volume rendering reformats were acquired of the central intracranial vasculature and neck separately. For radiation dose reduction, the following was used: automated exposure control, adjustment of mA and/or kV according to patient size. COMPARISON: None. FINDINGS: Image quality: Diagnostic. BRAIN: Please refer to same day CT of the head. HEAD CT ANGIOGRAPHY: Anterior circulation: Intracranial internal carotid arteries demonstrates significant calcifications with areas of at least moderate stenosis bilaterally. The flow within the paired anterior cerebral arteries is normal and symmetric. The flow within the middle cerebral arteries is normal and symmetric. The anterior communicating artery is seen. No aneurysms are seen. Posterior circulation: Significant atherosclerotic calcifications of the dominant right vertebral artery with areas of moderate stenosis. The left V4 segment of the vertebral artery is not identified, chronically occluded versus congenitally absent. Areas of moderate stenosis throughout the basilar artery. High-grade stenosis/areas of near complete occlusion of the left CONTACT CENTER REP, most notably involving the P1 and P2 segments. No aneurysms are seen. NECK CT ANGIOGRAPHY: Carotid system: The great vessels demonstrate a conventional anatomy as they arise from the aortic arch. The origins of the common carotid arteries appear patent. The common carotid arteries demonstrate normal caliber and courses. The bifurcation regions demonstrate significant atherosclerotic calcifications with high-grade stenosis on the right, greater than 70 percent and moderate stenosis on the left, 50-69 percent. The more distal internal carotid arteries demonstrate normal calibers and courses. Posterior circulation: The origins of the vertebral arteries both appear widely patent. The more superior extracranial portions of both vertebral arteries also demonstrate normal courses and calibers. They join to form a normal appearing basilar artery. Soft tissues: Visualized neck soft tissues demonstrate no suspicious abnormalities. Bones: No suspicious bony lesions. Visualized cervical spine appears normally aligned. Multilevel degenerative changes of the cervical spine. IMPRESSION: High-grade stenosis versus with areas of near complete inclusion involving the left CONTACT CENTER REP, most pronounced in the P1 and P2 segments. Thrombus is not excluded. Discussed with Dr. Palencia at the time of dictation. Significant calcifications throughout the intracranial internal carotid arteries with areas of at least moderate stenosis bilaterally. Atherosclerotic calcifications throughout the right intracranial vertebral artery and basilar artery with areas of moderate stenosis. The left V4 segment of the vertebral artery is not seen and may be chronically thrombosed. High-grade stenosis of the right carotid bifurcation/proximal ICA with greater than 70 percent stenosis. Moderate stenosis on the left with approximately 50-69 percent stenosis. MRI is recommended for further evaluation. Any quantitative measurements of stenosis were performed using NASCET criteria. Dictated by: Juan Reed M.D. on 12/12/2024 at 14:23 Approved by: Juan Reed M.D. on 12/12/2024 at 14:38 Chest x-ray: Radiologist's Impression: PROCEDURE: XR CHEST 1V INDICATIONS: Possible stroke TECHNIQUE: One view of the chest was acquired. COMPARISON: [facility], CR, XR CHEST 1V, 08/16/2020, 16:48. [facility], CR, XR CHEST 1V, 09/19/2019, 13:10. FINDINGS: Surgical changes and devices: None. Lungs and pleura: Lungs are clear. No pleural effusions or pneumothorax. Mediastinum: Mediastinal contours appear normal. Heart size is normal. Bones and chest wall: No suspicious bony lesions. Overlying soft tissues appear unremarkable. IMPRESSION: No acute cardiopulmonary abnormality is seen. Dictated by: Juan Reed M.D. on 12/12/2024 at 14:14 ECG Data Attestation: I personally reviewed and interpreted this ECG as follows: Prior ECG tracings: available for review Interpretation: Sinus rhythm rate 64 TX interval 190 QRS [address] changes no T-wave inversions similar to previous EKGs MDM Narrative Medical decision making narrative: MDM CC: Right-sided weakness and tingling Complicating co-morbidities: Coronary artery disease hypertension hyperlipidemia BPH Medical records reviewed: PCP note reviewed Differential considered: TIA CVA intracranial hemorrhage Exam documented above, pertinent findings include: NIH 3, patient is awake alert no facial droop [employer] strength is equal right leg definitely does drift mild ataxia in the right leg Lab Test results independently reviewed as above. Pertinent findings: CBC shows no anemia no leukocytosis CMP no electrolyte abnormality no DIONTE Troponin negative Independently reviewed EKG as above No acute ischemia Imaging studies independently reviewed: Head CT noncontrast does show probable calcification rather than hemorrhage in the right lateral ventricle CT angio near complete inclusion involving left CONTACT CENTER REP most pronounced in P1 P2 segments thrombus can not be excluded Chest x-ray no acute cardiopulmonary process MRI no acute stroke Consultations: 1600 Dr. Anderson, neurology at [facility] updated on patient's symptoms test results reviewed imaging reports that there was significant atherosclerosis throughout the brain. Recommends aspirin 325 mg daily with Plavix 75 mg daily for 90 days then decrease to aspirin 162 mg daily with Plavix 75 mg daily. Recommend Max out statin atorvastatin 80 mg or rosuvastatin 40 mg may add Co Q10 as needed. Recommended monitoring and observation overnight to make sure symptoms level out. Maintain systolic blood pressure 120 -220 Treatments: Aspirin Plavix atorvastatin Re-evaluations: Right leg weakness coming and going Discussion: Patient 74-year-old male presenting today with a right leg and right arm weakness last known well last night. Not in the window for thrombolytics. CT angio does show pretty significant stenosis and advanced atherosclerotic disease throughout the brain. Specifically stenosis in the left P1 P2 region. MRI was negative for acute distress.. Neurology was consulted in regards to management. Recommend admission to observation increasing aspirin from 81 mg to 325 mg daily for 90 days with Plavix. Discharge Plan Departure Patient Disposition: Admitted as Observation Clinical Impression: Brain TIA Admit Date/Time: 12/12/24 16:42 Admit Provider: Tano Burk
--- NOTE | 2024-12-12 14:55 | DI.MRI.S_ITS ---
PROCEDURE: MR HEAD/BRAIN WO CON INDICATIONS: right sided weakness TECHNIQUE: Noncontrast axial T1 spin echo, axial T2 fast spin echo, sagittal and axial FLAIR, coronal T2 fast spin echo, axial gradient echo, axial diffusion and ADC through the brain. COMPARISON: [facility], CT, CT STROKE, 12/12/2024, 13:29. FINDINGS: Image quality: Diagnostic CSF spaces: Basal cisterns are patent. Lateral ventricles are symmetric. Volume: Volume loss. Periventricular white matter signal abnormality most commonly seen with small vessel disease. These findings are mild Brain: Chronic appearing calcification is seen adjacent to the right lateral ventricle. No significant confluent area of parenchymal edema. No acute intracranial hemorrhage. There is no acute diffusion restriction. A small area of diffusion signal is seen in the left craniocervical junction, favored to be artifact as it is somewhat linear in configuration Craniofacial structures: Mild paranasal sinus mucosal thickening. IMPRESSION: No acute hemorrhage or infarct identified. Chronic appearing calcification seen adjacent to the right lateral ventricle. Dictated by: Cam George M.D. on 12/12/2024 at 15:41 Approved by: Cam George M.D. on 12/12/2024 at 15:45
--- NOTE | 2024-12-12 15:36 | PC.NURSE ---
This RNs first interaction with patient.
[2024-12-12] MEDS: ATORVASTATIN 20 MG TABLET 80 MG PO ×2 (16:31→21:16)
[2024-12-12] MEDS: CLOPIDOGREL 75 MG TABLET PO (16:31)
[2024-12-12] MEDS: ASPIRIN 81 MG CHEW TAB 244 MG PO (16:33)
--- NOTE | 2024-12-12 17:05 | PM.HP.1 ---
History of Present Illness History of Present Illness Date Patient Seen: 12/12/24 Chief complaint: Per patient, Mini stoke or food poisoning Narrative: From ED doctor: Patient is a 74-year-old male history of coronary artery disease with 4 stents presenting to day with some right-sided weakness and numbness. He reports he started having some symptoms last night. This morning he had difficulty ambulating cut his right leg was so weak he also reports that he was dropping things with his right hand although some of that has been improved. He denies any visual changes or loss. Reports that he does take aspirin and Plavix he takes Plavix at night and took aspirin 81 mg this morning. On Anticoagulants: Yes (Clopidogrel). S: He noted the right arm and leg numbness last evening and then some degree of weakness of the arm and leg. The symptoms were stuttering and went to bed after taking an Ambien. He awoke this morning with ongoing weakness of the leg greater than the arm. He did have difficulty holding a beverage with his right hand in his right hand. He had a headache last night but no visual changes. He would mild slurred speech, but no aphasia. He was no history of TIA or stroke. He does not smoke. He takes dual antiplatelet therapy chronically for his heart. He was no issues with medication compliance. He does have history of chronic right sciatica, confusing his leg symptoms to some degree possibly. MRI brain negative for stroke. [facility] Medical History BPH (benign prostatic hyperplasia) Medicare annual wellness visit, subsequent Well adult exam Myocardial infarction Colon polyps Coronary artery disease Chronic low back pain Insomnia ADHD (attention deficit hyperactivity disorder) Hyperlipidemia Hypertension Cluster headaches Basal cell carcinoma Surgical History Status post arterial stent History of cardiac cath Hx of colonoscopy with polypectomy (06/2014) Hx of coronary angioplasty Hx of heart artery stent History of vasectomy (1993) Family History Father Diabetes mellitus Social History household members: none Smoking Status: Never smoker alcohol intake: current substance use type: does not use Meds Home Medications and Allergies Home Medications Medication Instructions Recorded Confirmed Type nitroglycerin 0.4 mg sublingual 0.4 mg sublingual Q5-15M PRN Chest 12/27/18 11/13/24 History tablet Pain aspirin 81 mg tablet,delayed 81 mg PO DAILY 02/14/19 11/13/24 History release (Adult Aspirin Regimen) clopidogrel 75 mg tablet (Plavix) 75 mg PO DAILY 03/23/19 11/13/24 History acetaminophen 325 mg capsule 650 mg (2 x 325 mg) PO QID PRN 08/29/19 11/13/24 Rx (Tylenol) pain #60 caps metoprolol succinate 50 mg 75 mg PO BID 09/19/19 11/13/24 History tablet,extended release 24 hr amlodipine 2.5 mg tablet 2.5 mg PO DAILY 08/21/20 11/13/24 History lisinopril 5 mg tablet 5 mg PO DAILY 08/21/20 11/13/24 History omeprazole 20 mg capsule,delayed 20 mg PO DAILY 09/01/22 11/13/24 History release ranolazine 1,000 mg 1,000 mg PO BID Heart 05/18/23 11/13/24 History tablet,extended release,12 hr hydroxyzine HCl 25 mg tablet 25 mg PO BEDTIME #30 tabs 08/24/23 11/13/24 Rx isosorbide mononitrate 30 mg 30 mg PO DAILY 05/02/24 11/13/24 History tablet,extended release 24 hr trazodone 50 mg tablet 50 mg PO BEDTIME PRN insomnia #90 05/13/24 11/13/24 Rx tabs tamsulosin 0.4 mg capsule 0.4 mg PO BEDTIME #90 caps 10/16/24 11/13/24 Rx zolpidem 10 mg tablet 10 mg PO BEDTIME PRN insomnia #30 11/02/24 11/13/24 Rx tabs Allergies Allergy/AdvReac Type Severity Reaction Status Date / Time No Known Drug Allergies Allergy Verified 11/13/24 13:07 Review of Systems Review of Systems Narrative: All else reviewed and otherwise unremarkable except as noted in the history and physical. Exam Vital Signs (past 8 hours): - 12/12/24 13:04 12/12/24 14:35 12/12/24 14:37 Temperature 98.2 F Pulse Rate 68 59 L Respiratory Rate 18 16 Blood Pressure 138/97 H Pulse Oximetry 95 100 97 Oxygen Delivery Method Room Air 02/18/25 14:37 12/12/24 15:00 12/12/24 15:01 Temperature Pulse Rate 64 91 H Respiratory Rate 18 16 Blood Pressure 153/77 H Pulse Oximetry 97 97 Oxygen Delivery Method 12/12/24 15:01 12/12/24 15:32 12/12/24 15:34 Temperature Pulse Rate 65 60 Respiratory Rate 15 Blood Pressure 148/92 H Pulse Oximetry 98 99 Oxygen Delivery Method 12/12/24 15:34 12/12/24 16:00 12/12/24 16:00 Temperature Pulse Rate 60 Respiratory Rate 12 Blood Pressure 155/77 H 136/74 Pulse Oximetry 97 Oxygen Delivery Method 12/12/24 16:30 12/12/24 16:30 Temperature Pulse Rate 60 Respiratory Rate 12 Blood Pressure 152/77 H Pulse Oximetry 97 Oxygen Delivery Method Oxygen Delivery Method Room Air Narrative Exam Narrative: NAD, alert and oriented, fluent speech, calm. Normocephalic skull, EOMI, anicteric sclera, symmetric pupils. Oropharynx unremarkable, no droop. Neck supple, midline trachea, no adenopathy. Lungs clear, normal rate and effort. Heart regular, no murmur gallop or rub. Abdomen is soft, non distended and non tender. Extremities are free of edema. Skin is free of rash or lesions. Joints are not swollen or deformed. Judgment appears to be normal. Neuro: Negative pronator drift, no facial droop. Cranial nerves are intact. Speech is relatively normal. Judgment appears to be normal. Motor strength is 5/5 in arms and legs, negative pronator drift. He does have very slow [id number]-[id number] maneuvers but this appears to be bilateral. He was a good straight leg raise on the right leg. Objective ECG Impression: Normal sinus rhythm Imaging Multiple studies:: Radiologist's impression: MRI brain: IMPRESSION: No acute hemorrhage or infarct identified. Chronic appearing calcification seen adjacent to the right lateral ventricle. Head and neck CTA: IMPRESSION: High-grade stenosis versus with areas of near complete inclusion involving the left JOB RECRUITER, most pronounced in the P1 and P2 segments. Thrombus is not excluded. Discussed with Dr. Palencia at the time of dictation. Significant calcifications throughout the intracranial internal carotid arteries with areas of at least moderate stenosis bilaterally. Atherosclerotic calcifications throughout the right intracranial vertebral artery and basilar artery with areas of moderate stenosis. The left V4 segment of the vertebral artery is not seen and may be chronically thrombosed. High-grade stenosis of the right carotid bifurcation/proximal ICA with greater than 70 percent stenosis. Moderate stenosis on the left with approximately 50-69 percent stenosis. MRI is recommended for further evaluation. Chest x-ray: No acute cardiopulmonary abnormality is seen. Brain CT: Prominent sizable calcification in the deep white matter superior to the right lateral ventricle likely represents calcification related to remote hemorrhage or infarct. No acute intracranial process. Comment: Findings were discussed with Dr. Palencia on 12/12/2024 at 1342 hours This study fulfills neurological imaging criteria for inclusion or exclusion of acute stroke therapies based on available published neurological guidelines. Labs 12/12/24 13:21 12/12/24 13:21 Labs: Laboratory Results - last 24 hr 12/12/24 13:21 WBC 4.8 RBC 4.74 Hgb 14.2 Hct 42.0 MCV 88.6 MCH 29.8 MCHC 33.7 RDW 14.1 Plt Count 170 Neut % (Auto) 62.9 Lymph % (Auto) 25.4 [place] % (Auto) 7.7 Eos % (Auto) 2.8 Baso % (Auto) 1.2 Neut # (Auto) 3000 Lymph # (Auto) 1200 [place] # (Auto) 400 Eos # (Auto) 100 Baso # (Auto) 100 PT 11.8 INR 1.0 APTT 35 Sodium 139 Potassium 3.8 Chloride 107 Carbon Dioxide 23 BUN 13 Creatinine 0.98 Estimated GFR > 60 BUN/Creatinine Ratio 13.3 Glucose 132 H Calcium 9.1 Magnesium 2.1 Total Bilirubin 0.7 AST 32 ALT 38 Alkaline Phosphatase 54 Total Creatine Kinase 124 Troponin I < 0.012 Total Protein 6.8 Albumin 4.2 Globulin 2.6 Albumin/Globulin Ratio 1.6 Assessment & Plan Assessment & Plan narrative: 1. TIA, present on admission and improved. 2. CVD, present on admission and active. 3. CAD (4 stents), stable. 4. BPH, stable. 5. HTN, stable. 6. HLD, stable. 7. Significant carotid disease with no recommendations for urgent vascular consultation from stroke doctor today. 8. Right leg sciatica, chronic. PLAN: -ED physician talked to the stroke doctor at [facility]. They recommended aspirin 325 mg for 90 days plus Plavix 75 mg for 90 days. Then decrease aspirin to 162 mg a day and continue Plavix indefinitely. Continue high dose statin. -serial neuro exams -PT and OT consults -permissive hypertension The patient does have significant cerebrovascular disease as well as bilateral carotid disease with relatively critical appearing right carotid stenosis. He was at high risk for recurrent TIA and stroke despite medical therapy. He will need outpatient evaluation regarding his carotid arteries with vascular surgery as well as Neurology. Observation status, anticipate 1 midnight stay. Full code BELA is December 13. Time-Based Coding :: 35 min spent with patient and on the chart (including review of chart, obtaining history, exam, reviewing outside data, placing orders, documenting exam and treatment plan, and counseling patient) on 12/12. Quality MIPS - Admit I confirm the patient?s Advance Care Plan is present, Code status is documented, Surrogate decision maker is in patient?s record [If Yes, STOP here]: Yes MIPS - Meds 'Current medications' to include all prescriptions, megx-flh-bfalrda products, herbals, cannabis/cannabidiol products, and vitamin/mineral/dietary (nutritional) supplements. I have utilized all available resources to obtain, update, or review the patient?s current medications. [If Yes, STOP here]: Yes
[2024-12-12 20:13] LABS: Cholesterol 125 mg/dL (140-199); HDL Cholesterol 43 mg/dL (40-60); LDL Cholesterol Calculated 58 mg/dL (<100); Triglycerides 121 mg/dL (35-150)
[2024-12-12 20:16] LABS: Hemoglobin A1C% w Est Avg Glu < 4.0 % (4.0-6.0)
[2024-12-12] MEDS: METOPROLOL ER 50 MG TABLET 75 MG PO (21:13)
[2024-12-12] MEDS: TRAZODONE 50 MG TABLET PO (21:16)
[2024-12-12] MEDS: ZOLPIDEM 5 MG TABLET 10 MG PO (21:16)
[2024-12-12] MEDS: TAMSULOSIN 0.4 MG CAPSULE PO (21:16)
[2024-12-12] MEDS: RANOLAZINE 500 MG TAB.ER.12H PO (21:16)
[2024-12-12] MEDS: HEPARIN 5,000 UNIT/ML VIAL 5000 UNIT SUBCUT (21:17)
[2024-12-12 22:48] LABS: Ur Creatinine Normal (Normal); Ur Specific Gravity Normal (Normal); Urine Amphetamines Negative (Negative); Urine Barbiturates Negative (Negative); Urine Benzodiazepines Negative (Negative); Urine Cocaine Negative (Negative); Urine MDMA Negative (Negative); Urine Methadone Negative (Negative); Urine Methamphetamines Negative (Negative); Urine Opiates Negative (Negative); Urine Oxycodone Negative (Negative); Urine Phencyclidine Negative (Negative); Urine THC Negative (Negative); Urine Tricyclic Antidepressant Negative (Negative); Urine pH Normal (Normal)
[2024-12-13 01:25] VITALS: BP 132/75; PULSE 59; RESP 17; TEMP 36.6; O2SAT 94
[2024-12-13 05:47] VITALS: BP 121/78; PULSE 62; RESP 16; TEMP 36.6; O2SAT 95
[2024-12-13] MEDS: PANTOPRAZOLE DR 20 MG TABLET PO (06:01)
[2024-12-13 06:44] LABS: Add Manual Diff / Slide Review NO; Basophils Absolute Auto 100 /uL (0-100); Basophils Percent Auto 1.2 % (0-2); Eosinophils Absolute Auto 200 /uL (0-450); Eosinophils Percent Auto 3.2 % (2-4); Hematocrit 40.8 % (41-53); Hemoglobin 13.7 g/dL (13.5-17.5); Lymphocytes Absolute Auto 1700 /uL (1100-4500); Lymphocytes Percent Auto 29.3 % (25-40); Mean Corpuscular HGB Conc 33.6 % (30-36); Mean Corpuscular Hemoglobin 29.8 PG (26-34); Mean Corpuscular Volume 88.7 fL (80-100); Monocytes Absolute Auto 500 /uL (0-900); Monocytes Percent Auto 8.3 % (3-14); Neutrophils Absolute Auto 3300 /uL (1500-7000); Platelet Count 143 X10^3/uL (150-400); Red Cell Distribution Width 14.1 % (11.6-14.8); White Blood Cell Count 5.8 X10^3/uL (4.5-11.0)
[2024-12-13 06:56] LABS: BUN Creatinine Ratio 13.7 (6-22); Blood Urea Nitrogen 14 mg/dL (9-20); Calcium 8.9 mg/dL (8.4-10.2); Carbon Dioxide 25 mmol/L (22-32); Chloride 107 mmol/L (98-107); Estimated Glomerular Filt Rate > 60 mL/min (>60); Glucose 95 mg/dL (80-110); HEMOLYSIS 19 (0-50); Potassium 3.8 mmol/L (3.4-5.1); Sodium 139 mmol/L (137-145)
[2024-12-13 07:34] LABS: Thyroid Stimulating Hormone 1.39 uIU/mL (0.47-4.68)
[2024-12-13 09:00] VITALS: BP 139/77; PULSE 58; RESP 16; TEMP 36.6; O2SAT 93
--- NOTE | 2024-12-13 09:25 | PT.IIE ---
Surgical History (Last Reviewed 12/12/24 @ 17:05 by Tano Burk MD) History of cardiac cath History of vasectomy (1993) Hx of colonoscopy with polypectomy (06/2014) Hx of coronary angioplasty Hx of heart artery stent Status post arterial stent Medical History (Last Reviewed 12/12/24 @ 17:05 by Tano Burk MD) ADHD (attention deficit hyperactivity disorder) Basal cell carcinoma BPH (benign prostatic hyperplasia) Chronic low back pain Cluster headaches Colon polyps Coronary artery disease Hyperlipidemia Hypertension Insomnia Medicare annual wellness visit, subsequent Myocardial infarction Well adult exam Physical Therapy Inpatient Evaluation/Re-Eval M1 PT/OT-IP Prior Functional Status Start: 12/13/24 12:32 Freq: NEEDED Status: Active Protocol: Document 12/13/24 09:25 AB (Rec: 12/13/24 12:51 AB [id number]) Medical Review Prior Functional Status Medical History Reviewed Yes Communication able to make needs known Mobility and Gait pt stated that he was independent with all mobilities and ambulation without AD Activities of Daily Living and IADL's per OT note: 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 Social History Household Members none Living Arrangements House Number of Floors (Floors) One Floor Number of Stairs To Enter/Railing? 2 steps with no rails: pt hold on to sides of door frame for support Home Environment Standard Height Toilet,Walk in Shower,Built-In Shower Seat Home Equipment Straight Cane,Hand Held Shower Additional Social History Comment pt lives with his son and son' s family pt has an adjustable bed M2 PT-IP Current Condition Start: 12/13/24 12:32 Freq: NEEDED Status: Active Protocol: Document 12/13/24 09:25 AB (Rec: 12/13/24 12:51 AB [id number]) Physical Therapy Current Condition Current Condition Evaluation Date 12/13/24 Treatment Diagnosis brain TIA; difficulty in walking Onset Date 12/12/24 M3 PT-IP Subjective Start: 12/13/24 12:32 Freq: NEEDED Status: Active Protocol: Document 12/13/24 09:25 AB (Rec: 12/13/24 12:51 AB [id number]) Subjective Physical Therapy Visit Type Type Initial Evaluation Visit Start Time 09:25 Visit Stop Time 09:50 Number of HAMMER OPERATOR Visits 0 Physical Therapy Visit Comments Patient Comments agreeable to do PT Therapy Pain Assessment Pain When Pain Assessed During Mobility Location Lower Back Scale Used pain scale not stated Pain Management Techniques Distraction,Modification of Treatment,Re-positioning, Timing of Activity with Medications M4 PT-IP Mobility and Gait Start: 12/13/24 12:32 Freq: NEEDED Status: Active Protocol: Document 12/13/24 09:25 AB (Rec: 12/13/24 12:51 AB [id number]) PT-Bed Mobility Assessment Supine to Sit Supine to Sit Standby Assistance Sit to Supine Sit to Supine Standby Assistance PT-Transfer Assessment Sit to and From Stand Sit to and from Stand Contact Guard Assistance,1 Person Assistance,Use of Upper Extremities Equipment Transfer Assistive Device None,Gait Belt Orthotic/Prosthetic Devices or Brace: No Transfers Transfer Destination Bed,Chair Transfer Technique ambulated Transfer Ability Level of Assist Minimal Assistance,1 Person Assistance,Use of Upper Extremities Comments Mobility Comments pt sitting on the chair and agreeable to do PT. obtained PLOF and home set up. BP: 140 /69. pt completed sit to stand CGA and ambulated in room without AD min A and cues ~ 35 ft. presents with unsteady antalgic gait. slight increase of R knee flexion in late stance. pt's LLE tends to cross midline. cued to correct and increase [place]. pt sat back on chair. educated on safety and use of FWW. pt ambulated using FWW CGA. presents with steadier ambulation. pt sat on EOB. completed bed mobility sit<> supine SBA. informed pt regarding safety and use of FWW. pt stated that he has a SPC at home. informed pt regarding use of FWW vs SPC. pt wants to try SPC. pt completed ambulation using SPC min A and cues. presents with unsteady guarded gait. pt sat back on chair. informed regarding safety and use of FWW. pt understood. pt completed up/down step stoold holding on to edge of door frame for support CGA ascending but needed min A for descending. pt sat back on chair. positioned pt on the chair. call light and table placed within reach. Gait Assessment Gait Gait Assistance Required: Contact Guard Assist,Minimum Assistance,1 Person Assist Distance (Feet) 40 Able to Maintain Weight Bearing Status Yes During Gait Assistive Devices Assistive Device None,Gait Belt,Straight Cane, Front Wheeled Walker Orthotic/Prosthetic Devices or Brace: No Gait Deviations General Gait Pattern Antalgic,Ataxic,Decreased Stride Length,Decreased Feet Clearance,Flexed Trunk Factors Limiting Gait Function Factors Limiting Gait Function Decreased Activity Tolerance, Decreased Strength,Difficulty Following Directions,Limited Range of Motion,Pain,Poor Balance,Poor Safety Awareness Stair Climbing Assessment Evaluation Level of Assist On Stairs Contact Guard Assistance, Minimal Assistance Devices Stair Climbing Assistive Devices Left Railing,Right Railing Technique/Endurance Stair Climbing Direction Ascend and Descend Stair Climbing Technique Step to Step Number of Steps Climbed 1 Query Text: Stair Climbing Set # Repetitions (reps) 2 PT-Balance Assessment Sitting Balance and Reactions Static Sitting Balance Ability Normal Dynamic Sitting Balance Ability Good Standing Balance and Reactions Static Standing Balance Ability Fair Dynamic Standing Balance Ability Fair Device Used FWW M5 PT-IP Objective Assessments Start: 12/13/24 12:32 Freq: NEEDED Status: Active Protocol: Document 12/13/24 09:25 AB (Rec: 12/13/24 12:51 AB [id number]) Orientation Orientation/Cognition Level of Alertness Alert Orientation Name,Place,Situation Language Function Ability Hard of Hearing Safety Awareness Decreased Safety Awareness Memory Description Short Term Impaired Gross Range of Motion Lower Extremity ROM Assessment Within Functional Limits Strength Lower Extremity Strength Assessment Within Functional Limits Sensation Assessment Sensation Sensation Description Numbness Comments Sensation Comments RLE and UE numbness Muscle Tone Muscle Tone WNL Yes M6 PT-IP Treatment Start: 12/13/24 12:32 Freq: NEEDED Status: Active Protocol: Document 12/13/24 09:25 AB (Rec: 12/13/24 12:51 AB [id number]) Physical Therapy Treatment Education Education Provided Safety M7 PT-IP Assessment and Plan Start: 12/13/24 12:32 Freq: NEEDED Status: Active Protocol: Document 12/13/24 09:25 AB (Rec: 12/13/24 12:51 AB [id number]) PT Summary Assessment and Plan Potential Rehabilitation Potential Fair Status of Condition at Evaluation Evolving Summary Impairments Pain,ROM,Strength,Balance, Coordination,Sensation,Tone, Cognition,Bed Mobility, Transfers,Gait,Activity Tolerance Assessment Summary pt is a 74 y/o M with c/o R sided weakness. pt admitted for brain TIA. pt requiring CGA to min A with mobility. Assessed ambulation without AD , using SPC and using FWW. Recommending use of FWW at this time. pt will require assistance at home. will continue to assess progress. d/c plan: home with assist and outpt PT vs SNF rehab. Goals Bed Mobility Goal Independent Transfer Goal Independent,Front Wheeled Walker Gait Goal Independent,Front Wheel Walker Gait Distance 200 Other Goals improve transfers, ambulation using LRAD/without AD SBA 300 ft up/down 2 steps without rails SBA Days to Meet Goals 10 Frequency of Treatment Frequency Of Treatment Once a Day Treatment Plan Physical Therapy Treatment Plan Bed Mobility Training,Transfer Training,Gait Training, Therapeutic Exercise,Balance Retraining,Discharge Planning, Hot or Cold Pack,Neuromuscular Re-ed,Coordination Retraining ,Manual Therapy Precautions Other Precautions falls Recommendations To Nursing Amount of Assist Needed 1 Person Assist Discharge Recommendations PT Discharge Recommendations Home with / Assist Available,Outpatient PT,Home vs SNF Equipment Needed for Home Before FWW Discharge Transportation Needs at Discharge Private Vehicle,Wheelchair/ Cabulance
--- NOTE | 2024-12-13 09:55 | SLP.IPNOTE ---
Chart reviewed and RN consulted. Per chart, mild slurring noted. No acute hemorrhage or infarct identified on brain MRI. RN reported no s/sx of dysphagia, dysarthria, aphasia, or cognitive changes from baseline. Screen completed. Pt was able to take sips of thin liquid via straw throughout without overt difficulty. He denied overt s/sx of dysphagia. Pt reported mild articulatory imprecision seems to have fully resolved, which is consistent with this SQL ENGINEER's observations. Expressive/receptive language appears to be WNL. Pt denied changes to cognitive function and informally was observed to have WNL cognitive-communication function. He was alert and oriented x4, discussed PLOF, and participated in conversation without difficulty. Pt lived with son's family and was fully independent with ADLs and IADLs per his report. Discussed screen results with RN and MD who expressed understanding. Given no changes from prior level of function, no further SQL ENGINEER services are recommended and order discharged at this time.
[2024-12-13] MEDS: HEPARIN 5,000 UNIT/ML VIAL 5000 UNIT SUBCUT (09:58)
[2024-12-13] MEDS: TAMSULOSIN 0.4 MG CAPSULE PO (09:59)
[2024-12-13] MEDS: CLOPIDOGREL 75 MG TABLET PO (09:59)
[2024-12-13] MEDS: lisinopriL 5 MG TABLET PO (09:59)
[2024-12-13] MEDS: ASPIRIN EC 81 MG TABLET PO (09:59)
[2024-12-13] MEDS: AMLODIPINE 5 MG TABLET 2.5 MG PO (09:59)
[2024-12-13] MEDS: RANOLAZINE 500 MG TAB.ER.12H PO (09:59)
[2024-12-13] MEDS: METOPROLOL ER 50 MG TABLET 75 MG PO (10:00)
--- NOTE | 2024-12-13 10:30 | CM.DANOTE ---
Initial DCP Assessment Visit Note Reviewed EMR and team rounds for status updates. Met with pt at bedside to introduce self and role, pt was found to be alert/oriented, sitting upright in the recliner, able to share his home situation and plan for d/c. Pt resides independently in his own home with his son and his son's family. He is , and his brother also lives next door. His [id number], Annalise, will transport him home once he's medically stable, likely later today. No CM d/c needs are identified at this time. Payor: [facility] Adv PCP: Dr. James Ragsdale Pt is a 74 year-old M with a hx of CAD with 4-stents presented to the ED last evening with R-sided weakness and numbness. dHe states that he was having difficulty with his R-leg and R-hand, and was dropping things from his R-hand. ED consulted with the [facility] stroke MD, who did not feel that pt needed to transfer, advised tx, and recommended pt be monitored in OBS for continued sx management. Today pt is expressing feeling mostly back to baseline with some residual tingling in his right hand. DCP will continue to monitor and assist with any further evolving needs prior to d/c. Discharge Planning/Care Management Advanced directive, confirm from FAMILY Start: 12/12/24 19:07 Freq: Q24H Status: Active Protocol: Document 12/13/24 09:24 YAD (Rec: 12/13/24 09:30 YAD [id number]) Advance Directive, confirm on record Time 09:24 Person contacted Pt Copy received Yes CM Discharge Assessment Start: 12/13/24 10:27 Freq: Status: Active Protocol: Document 12/13/24 10:27 DPL (Rec: 12/13/24 10:29 DPL [id number]) Discharge Planning Assessment Assigned Corporate Director Talent Assessment EBER Martinez Advance Directives? Yes Advance Directives on File Yes History Provided By Patient,Medical Record Prior Living Arrangements House Household Members spouse,none Type of transporation used prior to Drives own vehicle admit Independent with ADL's Yes Is patient alert and oriented? Yes Caregiver for Another No Comment N/A Comment No identified home d/c needs identified at this time. Barriers to Discharge No Discharge Plan Home Transportation Arrangement [id number] Referrals Initiated None needed Whiteboard Updated in Patient Room with Yes name and ext. # of Corporate Director Talent Assessment Review Status In Process Please Provide Date Initial DC 12/13/24 Assessment Was Performed
--- NOTE | 2024-12-13 11:08 | OT.IP.EVAL ---
Past Medical History (Last Reviewed 12/12/24 @ 17:05 by Tano Burk MD) ADHD (attention deficit hyperactivity disorder) Basal cell carcinoma BPH (benign prostatic hyperplasia) Chronic low back pain Cluster headaches Colon polyps Coronary artery disease Hyperlipidemia Hypertension Insomnia Medicare annual wellness visit, subsequent Myocardial infarction Well adult exam Surgical History (Last Reviewed 12/12/24 @ 17:05 by Tano Burk MD) History of cardiac cath History of vasectomy (1993) Hx of colonoscopy with polypectomy (06/2014) Hx of coronary angioplasty Hx of heart artery stent Status post arterial stent Occupational Therapy Inpatient Evaluation/Re-Eval M1 PT/OT-IP Prior Functional Status Start: 12/13/24 11:10 Freq: NEEDED Status: Active Protocol: Document 12/13/24 11:11 [facility] (Rec: 12/13/24 11:32 [facility] [id number]) Medical Review Prior Functional Status Communication I Mobility and Gait Pt states independent and did not use a device. 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 Prior Functional Level (Other details) Pt states has someone at home at all times that can assist him if needed. Social History Household Members spouse,none Living Arrangements House Number of Floors (Floors) One Floor Number of Stairs To Enter/Railing? 2 steps with no rails. Home Environment Standard Height Toilet,Walk in Shower,Built-In Shower Seat Home Equipment Hand Held Shower Additional Social History Comment Pt states just recently bought grab bar for the steps as recently having more difficulty to get up and down the steps. M2 OT-IP Current Condition Start: 12/13/24 11:10 Freq: Status: Active Protocol: Document 12/13/24 11:11 [facility] (Rec: 12/13/24 11:32 [facility] [id number]) Occupational Therapy Current Condition Current Condition Evaluation Date 12/13/24 Treatment Diagnosis TIA Diagnosis Onset Date 12/12/24 M3 OT- IP Subjective and Pain Start: 12/13/24 11:10 Freq: Status: Active Protocol: Document 12/13/24 11:11 [facility] (Rec: 12/13/24 11:32 [facility] [id number]) OT- Subjective Occupational Therapy Visit Type Type Initial Evaluation Visit Start Time 10:15 Visit Stop Time 11:08 Occupational Therapy Visit Comments Patient Comments Pt agreed to get up for OT eval. Patient/Caregiver Goals TO go home and be able to walk again normally. OT Pain Assessment Pain When Pain Assessed At Rest Pain Present Pain Present Denied Pain M4 OT- IP ADL's Start: 12/13/24 11:10 Freq: Status: Active Protocol: Document 12/13/24 11:11 [facility] (Rec: 12/13/24 11:32 [facility] [id number]) OT [id number] General Evaluation Self-Feeding Ability Independent OT ADL-Grooming Comments OT Grooming Comments Pt states did prior. OT ADL-Oral Care Comments Oral Care Comments Pt states did prior. OT ADL-Dressing General Eval Lower Body Dressing Ability Standby Assistance Comments OT Dressing Comments Pt able to ev/doff socks while seated. Pt is aware to sit for dressing needs at this time. OT ADL-Toileting Comments OT Toileting Comments Pt not having to go at this time. OT ADL-Bathing Comments OT Bathing Comments Suggested pt sit to shower at this time due to decreased balance. M5 OT- IP IADL's Start: 12/13/24 11:10 Freq: Status: Active Protocol: Document 12/13/24 11:11 [facility] (Rec: 12/13/24 11:32 [facility] [id number]) OT-Instrumental Activities of Daily Living Deficits IADL Deficits Identified Deficits Home Safety Awareness Awareness of Need for Assistance at Home Decreased Awareness Home Safety Comments Pt is insistent that he will be fine to care for himself. Medication Management Medication Management Comments Best to have at least supervision at this time. Money Management Money Management Comments Best to have supervision. Meal Preparation Meal Preparation Comments Best to have supervision or assist at this time. Credit Investigator Credit Investigator Comments Best to have supervision or assist at this time. Driving Driving Concerns Identified Regarding Safety M6 OT- IP Functional Cognition Start: 12/13/24 11:10 Freq: Status: Active Protocol: Document 12/13/24 11:11 [facility] (Rec: 12/13/24 11:32 [facility] [id number]) Cognitive Factors Limiting Selfcare Function Cognitive Ability Level of Alertness Alert Patient Orientation Name,Age,Birthday,Month,Date, Year,Day of Week,Place, Situation Attention Span Ability Capable of Focused Attention, Capable of Sustained Attention Ability to Follow Commands Able to Follow One Step Commands Memory Description Short Term Impaired Safety Awareness Underestimates Need for Assistance Executive Function Ability Unable to Remember Details Cognitive Tests SLUMS Pt scored 22/30 which implies mild neurocognitive deficits. Pt able to recall 1/5 objects after time passed, not able to drw the hour hand on the clock correctly after time given, and able to answer 3/4 questions right after paragraph read. Cognitive Comments Cognitive Assessment Comments Pt admits to being a bit stubborn. Pt poor safety awareness and needing cues to keep his feet apart while walking as tends to cross his legs. Pt needing vc to use the FWW at all time as very unsteady on his feet. Pt having difficulty to recall word for wrist when touched for light touch assessment. OT- Vision and Hearing OT- Vision Assessment Visual Acuity No Vision Aides At Hospital Vision Assessment Comments Glasses for driving M7 OT- IP Mobility and Balance Start: 12/13/24 11:10 Freq: Status: Active Protocol: Document 12/13/24 11:11 [facility] (Rec: 12/13/24 11:32 [facility] [id number]) OT-Transfer Assessment Sit to and From Stand Sit to and from Stand Independent Transfers Transfer Ability Standby Assistance,Minimal Assistance Technique Transfer Destination Chair Transfer Technique Stand Step Pivot Devices Transfer Assistive Devices None,Gait Belt,Front Wheeled Walker Comments Mobility Comments Pt very unsteady without at device as posteriorly leans and tends to cross his feet while walking and needing STEPHEN . With FWW pt is close SBA to occasional CGA for safety. OT- Balance Assessment Sitting Balance and Reactions Static Sitting Balance Ability Normal Dynamic Sitting Balance Ability Good Standing Balance and Reactions Static Standing Balance Ability Fair Dynamic Standing Balance Ability Poor M8 OT- IP Objective Assessments Start: 12/13/24 11:10 Freq: Status: Active Protocol: Document 12/13/24 11:11 [facility] (Rec: 12/13/24 11:32 [facility] [id number]) OT Gross Range of Motion Upper Extremity Range of Motion Assessment Within Functional Limits OT Strength Comments Strength Comments RUE 4/4+ throughout and LUE 4+ OT- Coordination Assessment Upper Extremity Finger to Nose Test Right UE Impaired Finger Tapping Test Bilateral UE Impaired Comments Coordination Comments Finger to nose decreased smoothness RUE versus LUE. OT Sensation Assessment Comments Summary Comments Intact for light touch but pt states feeling numbness in his hands. Educated pt to be mindful of his wrist positioning while he sleeping, pt states at times wakes up with numb wrist for several minutes before disappearing. Edema Edema Comments Right hand slightly swollen. M9 OT- IP Assessment and Plan Start: 12/13/24 11:10 Freq: Status: Active Protocol: Document 12/13/24 11:11 [facility] (Rec: 12/13/24 11:32 [facility] [id number]) OT Summary Assessment and Plan Potential Rehabilitation Potential Good Analytic Complexity at Evaluation Moderate Summary OT Impairments Strength,Balance,Coordination, Functional Cognition, Functional Mobility,Dressing, Toileting,Bathing,Toilet Transfers,Shower Transfers Progress Towards Goals Slow Progress due to Medical Issues,Slow Progress due to Activity Tolerance Assessment Summary Pt MOD complexity and here due to TIA and main barriers are step, decreased coordination and smoothness of movement for RUE, decreased dynamic balance and tends to cross his feet when walking, and a bit impulsive. Pt will benefit form 17/05 available assist and outpt PT an OT. Pt is aware of suggestion not to drive at this time. Pt states attends cardio-therapy and suggested pt call to let them know he is in the hospital. Suggested to pt, at this time probabaly not safe to use the treadmill or elliptical due to poor balance at this time. Goals Self-Feeding Goal Independent Grooming Goal Independent Dressing Goal Independent Toileting Goal Independent Bathing Goal Independent Toilet Transfer Goal Independent Shower Transfer Goal Independent OT-Other Goals Goals based on no devices used . Days to Meet Goals 15 Frequency of Treatment Other frequency 5x/week Treatment Plan OT Treatment Plan ADL Training,Functional Mobility,Patient/Family Education,Discharge Planning Other Treatment Recommendations and Next Standing ADL's Treatment Focus Discharge Recommendations OT Discharge Recommendations Home with 24/7 Assist Available,Outpatient PT Home Equipment Needs Shower chair, FWW Transportation Needs at Discharge Private Vehicle
[2024-12-13 11:18] VITALS: PULSE 58
--- NOTE | 2024-12-13 14:14 | PM.DS.1 ---
History of Present Illness History of Present Illness Date Patient Seen: 12/13/24 Chief complaint: Per patient, Mini stoke or food poisoning Narrative: Per admitting provider, From ED doctor: Patient is a 74-year-old male history of coronary artery disease with 4 stents presenting to day with some right-sided weakness and numbness. He reports he started having some symptoms last night. This morning he had difficulty ambulating cut his right leg was so weak he also reports that he was dropping things with his right hand although some of that has been improved. He denies any visual changes or loss. Reports that he does take aspirin and Plavix he takes Plavix at night and took aspirin 81 mg this morning. On Anticoagulants: Yes (Clopidogrel). S: He noted the right arm and leg numbness last evening and then some degree of weakness of the arm and leg. The symptoms were stuttering and went to bed after taking an Ambien. He awoke this morning with ongoing weakness of the leg greater than the arm. He did have difficulty holding a beverage with his right hand in his right hand. He had a headache last night but no visual changes. He would mild slurred speech, but no aphasia. He was no history of TIA or stroke. He does not smoke. He takes dual antiplatelet therapy chronically for his heart. He was no issues with medication compliance. He does have history of chronic right sciatica, confusing his leg symptoms to some degree possibly. MRI brain negative for stroke. Discharge Providers Provider Date of admission: 12/12/24 16:42 Discharge Date: 12/13/24 Primary care physician: James Ragsdale DO Consults: 12/12/24 17:13 Consult to Discharge Planning Routine Comment: Consult to Occupational Therapy Evaluate & Treat Comment: Physician Instructions: Evaluate and treat Consult to Physical Therapy Evaluate & Treat Comment: Physician Instructions: Evaluate and Treat Consult to Speech Therapy Evaluate & Treat Comment: Physician Instructions: Evaluate and treat Discharge provider: Adalberto Chang DO Summary Hospital Course Discharge Diagnosis: 1. TIA, present on admission and improved. 2. CVD, present on admission and active. 3. CAD (4 stents), stable. 4. BPH, stable. 5. HTN, stable. 6. HLD, stable. 7. Significant carotid disease with no recommendations for urgent vascular consultation from stroke doctor today. 8. Right leg sciatica, chronic. Hospital Course: This 74-year-old male with a past medical history of CAD, hypertension, BPH, hyperlipidemia who presented with acute right-sided neurological symptoms. MRI was negative for acute stroke but he continued to have mild right-sided symptoms after admission though these were slowly getting better. He was seen by therapy teams and cleared for discharge home. Discussed continued observation versus discharge home with the patient, and he elected for discharge home given his observation status. At the recommendations of the tele stroke service his home aspirin was increased to 325 mg daily for 90 days, and he will continue on Plavix. No other changes were made to his chronic home medications. Time Spent with Patient Time spent: Greater than 30 minutes Exam Vital Signs (past 8 hours): - 12/13/24 09:00 12/13/24 11:18 Temperature 97.9 F Pulse Rate 58 L 58 L Respiratory Rate 16 Blood Pressure 139/77 Pulse Oximetry 93 Oxygen Flow Rate 0 Oxygen Delivery Method Room Air Oxygen Flow Rate 0 Narrative Exam Narrative: NAD, alert and oriented, fluent speech, calm. Normocephalic skull, EOMI, anicteric sclera, symmetric pupils. Oropharynx unremarkable, no droop. Neck supple, midline trachea, no adenopathy. Lungs clear, normal rate and effort. Heart regular, no murmur gallop or rub. Abdomen is soft, non distended and non tender. Extremities are free of edema. Skin is free of rash or lesions. Joints are not swollen or deformed. Judgment appears to be normal. Objective Labs 12/13/24 06:35 12/13/24 06:35 Labs: Laboratory Results - last 24 hr 12/12/24 12/12/24 12/13/24 13:21 21:46 06:35 WBC 5.8 RBC 4.60 Hgb 13.7 Hct 40.8 L MCV 88.7 MCH 29.8 MCHC 33.6 RDW 14.1 Plt Count 143 L Neut % (Auto) 58.0 Lymph % (Auto) 29.3 [place] % (Auto) 8.3 Eos % (Auto) 3.2 Baso % (Auto) 1.2 Neut # (Auto) 3300 Lymph # (Auto) 1700 [place] # (Auto) 500 Eos # (Auto) 200 Baso # (Auto) 100 Sodium 139 Potassium 3.8 Chloride 107 Carbon Dioxide 25 BUN 14 Creatinine 1.02 Estimated GFR > 60 BUN/Creatinine Ratio 13.7 Glucose 95 Hemoglobin A1c < 4.0 L Calcium 8.9 Triglycerides 121 Cholesterol 125 L LDL Cholesterol, Calc 58 HDL Cholesterol 43 TSH 1.39 U Opiates 300ng/mL cut Negative Ur Oxycodone Screen Negative Urine Methadone Screen Negative Ur Barbiturates Screen Negative U Tricyclic Antidepress Negative Ur Phencyclidine Scrn Negative Ur Amphetamines Screen Negative U Methamphetamines Scrn Negative Ur MDMA Scrn (Ecstasy) Negative U Benzodiazepines Scrn Negative Urine Cocaine Screen Negative U Marijuana (THC) Screen Negative Urine pH Normal Urine Specific [place] Normal Ur Creatinine Normal PFSH Medical History BPH (benign prostatic hyperplasia) Medicare annual wellness visit, subsequent Well adult exam Myocardial infarction Colon polyps Coronary artery disease Chronic low back pain Insomnia ADHD (attention deficit hyperactivity disorder) Hyperlipidemia Hypertension Cluster headaches Basal cell carcinoma Surgical History Status post arterial stent History of cardiac cath Hx of colonoscopy with polypectomy (06/2014) Hx of coronary angioplasty Hx of heart artery stent History of vasectomy (1993) Family History Father Diabetes mellitus Social History household members: spouse and none Smoking Status: Never smoker alcohol intake: current substance use type: does not use Discharge Plan Discharge Plan Patient Disposition: Home Provider Discharge Comment: You were admitted to the hospital with possible TIA. MRI negative. Recommend to increase aspirin to 325 mg daily, continue plavix. Stroke doctor at [facility] recommended aspirin 325 mg for 90 days plus Plavix 75 mg for 90 days. Then decrease aspirin to 162 mg a day and continue Plavix indefinitely Discharge orders & Medications Prescriptions: New aspirin 325 mg tablet,delayed release (DR/EC) 325 mg PO DAILY 30 Days Qty: 30 0RF Continued clopidogrel [Plavix] 75 mg tablet 75 mg PO DAILY Patient Comments: PATIENT STATES RESTARTED YESTERDAY 09/18 amlodipine 2.5 mg tablet 2.5 mg PO DAILY lisinopril 5 mg tablet 5 mg PO DAILY omeprazole 20 mg capsule,delayed release(DR/EC) 20 mg PO DAILY zolpidem 10 mg tablet 10 mg PO BEDTIME PRN (Reason: insomnia) Qty: 30 0RF nitroglycerin 0.4 mg tablet, sublingual 0.4 mg SL Q5-15M PRN (Reason: Chest Pain) ranolazine 1,000 mg tablet extended release 12 hr 1,000 mg PO BID acetaminophen [Tylenol] 325 mg capsule 650 mg PO QID PRN (Reason: pain) Qty: 60 0RF tamsulosin 0.4 mg capsule 0.4 mg PO BID trazodone 50 mg tablet 50 mg PO BEDTIME PRN (Reason: insomnia) Qty: 90 1RF Discontinued aspirin [Adult Aspirin Regimen] 81 mg tablet,delayed release (DR/EC) 81 mg PO DAILY No Action atorvastatin 40 mg tablet 40 mg PO DAILY metoprolol succinate 50 mg tablet extended release 24 hr 50 mg PO BID Follow up/Referrals: James Ragsdale, [Primary Care Provider] - Diet/Activity/Treatments Diet: Diet as Tolerated and Regular Activity: No restrictions Visit Report/Discharge Packet Instructions: Transient Ischemic Attack, DI for Transient Ischemic Attack, How to Prevent Falls Stand Alone Forms: Patient Portal/API, Stroke Signs & Symptoms Discharge Data Primary Care Provider: James Ragsdale Attending Provider: Tano Burk Admit Date/Time: 12/12/24 16:42 Quality VTE Deep Vein Thrombosis/Pulmonary Embolism Present on Admission: No
--- NOTE | 2024-12-13 14:36 | PC.NURSE ---
Day shift: Left unit via WC at approx 1425. His ride home is coming and Pt wants to wait at main entrance. Paperwork is signed. All questions answered. Pt has all personalf belongings. Pt encouraged to start 325mg aspirin daily per Dr Chang. that is in Pt's discharge. Pt to stop 81 mg aspirin. OPt also encouraged to get FWW. He said he has a plan for this Wednesday.
== END 2024-12-13 14:38 | disposition home or self-care (01) ==
LOC: ED 16:39 → AC 16:43
PROVIDERS: Admitting Provider Hospitalist; Emergency Provider Emergency Medicine; Family Provider Student in an Organized Health Care Education/Training Program; PCP Family Medicine; Referring Provider Emergency Medicine; Visit Provider Hospitalist
DX: G45.9 Transient cerebral ischemic attack, unspecified (principal); R29.703 NIHSS score 3; M54.31 Sciatica, right side; I25.10 Atherosclerotic heart disease of native coronary artery without angina pectoris; N40.0 Benign prostatic hyperplasia without lower urinary tract symptoms; I10 Essential (primary) hypertension; E78.5 Hyperlipidemia, unspecified; Z79.82 Long term (current) use of aspirin; Z79.01 Long term (current) use of anticoagulants; Z95.818 Presence of other cardiac implants and grafts
CPT/HCPCS: 36415; 70450; 70496; 70498; 70551; 71045; 80048; 80053; 80061; 80305; 82550; 82962; 83036; 83735; 84443; 84484; 85025; 85610; 85730; 93005; 93010; 96372; 97116; 97129; 97162; 97166; 97530; 99284; G0378; J1644; Q9967

== ENCOUNTER 2025-01-04 13:14 | Outpatient (RCR) | payer OTHER, SELFPAY ==
[2024-12-12 19:02] VITALS: BMI 31.5
--- NOTE | 2025-01-04 15:05 | OT.OP.DC ---
Visit Care Team Role Provider Type James Ragsdale DO Attending Provider Physician Primary Care Provider Referring Provider Address: [address] [place] [address], [id number] Email: [email or web address] Outpatient OT Outpatient Adult Evaluation Start: 01/04/25 14:37 Freq: Status: Active Protocol: Document 01/04/25 14:39 [facility] (Rec: 01/04/25 15:03 [facility]MS [id number]) General Information - Adult Visit Information Insurance Information [facility] Ad[facility]age Session Time Visit Start Time 13:50 Visit Stop Time 14:20 Setting Treatment Setting Outpatient Care Visit Type Note Type Initial Evaluation Identification Identification Confirmed Yes Identification Confirmed By Self Assessment/Plan Assessment Treatment Assessment Garrett is 74 years of age; he was referred to outpatient OT secondary to TIA. Medical history is significant for Arterial disease; falls; heart attack; hepatitis A and stroke/TIA. Pain Assessment Grid was completed; 0 out of 10 on pain scale relative to distal B UEs and R LE. He is R hand dominant. He is ambulating without mobility AE . He reports working approximately 2 hours per day; he states that 'things take longer', 'he frequently drops things' and that his hands ' don't work together as good as they once did' since TIA, QuickDASH UE Outcome Measure Score = 25.00. Garrett reports that his son, [id number] (home visitor), and 3 grandchildren reside with him in his home. Good opposition EO; slight errors bilaterally w/ EC w/ opposition; increased accuracy w/ 2nd and 3rd trials. Good orientation to midline w/ bringing hands together above head and in front of body. The 9-Hole Peg Test is a timed test in which 9 pegs are inserted and removed from 9 holes in the pegboard with each hand. It is an assessment that can be used to assess hand dexterity. Garrett completed the test with his R hand in 26.6 seconds (compared to 70-74 y.o. male peers 22.0 +/- 3.3 sec) and with his L hand in 30.8 seconds (compared to 70-74 y.o. male peers 23.8 +/- 3.9 sec). Purdue Pegboard test was also administered. Timed trials for Garrett were: trial one w/ left hand = 10; trial one w/ right hand = 9; trial one w/ both hands = 9; trial one w/ assembly = 14. 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 same-aged peers 75.3 + /- 21.5# of force) versus L electrical contractor 93.0# of force (compared to 70-74 y.o. same-aged peers 64.8 +/- 18.1# of force). Dynamometer II Strength Testing Results with Elbow Extended = R electrical contractor 95.0# of force versus L electrical contractor 87.0# of force. Lateral [place] Pinch = R lateral pinch 22.0# of force ( compared to 70-75 y.o. same- aged peers 19.3 +/- 2.4# of force) versus L lateral pinch 16.5# of force (compared to 70 -75 y.o. same-aged peers 19.1 +/- 3.0# of force). Based on feedback, no further treatment is needed at this time. Garrett to cancel remaining scheduled outpatient OT appointments. Recommend considering outpatient PT given balance concerns, h/o recent falls x 2. Falls reportedly may be d/t clutter on ground/given nature of work . Plan Patient Recommendations Discharge from Occupational Therapy Functional Wrist/Hand Scan Hand Side Sensory Assessment Sensory Profile2
== END 2025-01-10 15:44 | disposition home or self-care (01) ==
LOC: OT 13:14
PROVIDERS: PCP Family Medicine; Referring Provider Family Medicine; Visit Provider Family Medicine
DX: G45.9 Transient cerebral ischemic attack, unspecified (principal)
CPT/HCPCS: 97165